=== PATIENT | male | born 1940 | race African-American/Black ===

== ENCOUNTER 2016-03-22 15:57 | Inpatient (IN) | payer MEDICARE, OTHER ==
[2016-03-22 17:16] LABS: ALANINE AMINOTRANSFERASE 25 U/L (21-72); ALBUMIN 1.3 g/dL (3.5-5.0); ALKALINE PHOSPHATASE 41 U/L (38-126); ANION GAP 6 (5-19); ASPARTATE AMINO TRANSFERASE 11 U/L (17-59); BILIRUBIN,TOTAL 0.5 mg/dL (0.2-1.3); BLOOD UREA NITROGEN 17 mg/dL (7-20); CARBON DIOXIDE 18 mmol/L (22-30); CHLORIDE 121 mmol/L (98-107); CREATINE KINASE 30 U/L (55-170); CREATININE RESULT 0.61 mg/dL (0.52-1.25); GLUCOSE 60 mg/dL (75-110); TOTAL PROTEIN 3.1 g/dL (6.3-8.2)
[2016-03-22 17:24] LABS: CALCIUM 4.6 mg/dL (8.4-10.2); POTASSIUM 2.4 mmol/L (3.6-5.0)
[2016-03-22 17:26] LABS: ABSOLUTE EOSINOPHILS # (AUTO) 0.1 10^3/uL (0.0-0.6); ABSOLUTE LYMPHOCYTES (AUTO) 0.5 10^3/uL (0.5-4.7); ABSOLUTE MONOCYTES (AUTO) 0.5 10^3/uL (0.1-1.4); ABSOLUTE NEUT (AUTO) 4.1 10^3/uL (1.7-8.2); BASOPHILS % (AUTO) 0.6 % (0-2); EOSINOPHILS % (AUTO) 1.8 % (0-6); HEMATOCRIT 27.8 % (37.9-51.0); HEMOGLOBIN 9.3 g/dL (13.5-17.0); HGB HCT DIFFERENCE 0.1; MEAN CORPUSCULAR HEMOGLOBIN 34.2 pg (27.0-33.4); MEAN CORPUSCULAR HGB CONC 33.3 g/dL (32.0-36.0); MEAN CORPUSCULAR VOLUME 103 fl (80-97); MONOCYTES % (AUTO) 9.6 % (3-13); RED BLOOD COUNT 2.71 10^6/uL (4.35-5.55); RED CELL DISTRIBUTION WIDTH 12.6 % (11.5-14.0); WHITE BLOOD COUNT 5.3 10^3/uL (4.0-10.5)
[2016-03-22 17:27] LABS: CREATINE KINASE MB 0.42 ng/mL (<4.55); TROPONIN I 0.016 ng/mL
[2016-03-22] MEDS ORDERED: CALCIUM GLUCONATE 1000 MG/10 ML INJ IV ONE ×2 (17:43)
[2016-03-22] MEDS ORDERED: NORMAL SALINE 1000 ML 1,000 ML IV PRN (17:44)
[2016-03-22] MEDS ORDERED: CEFOTAXIME INJ 1 GM VIAL IV ONE (17:49)
[2016-03-22] MEDS ORDERED: VANCOMYCIN HCL INJ 1000 MG VIAL IV ONE (17:50)
--- NOTE | 2016-03-22 17:52 | ER Document Report ---
ED General - General Chief Complaint: Decreased LOC Stated Complaint: ALTERED MENTAL STATUS Time seen by provider: 17:50 Mode of Arrival: Medic Information source: Relative Notes: This is a 75-year-old man with Parkinson's disease, recent subdural hematoma secondary to fall in the setting of anticoagulation (no longer on anticoagulation, does have a filter). In by EMS because of decreased responsiveness over the past 2-3 days. Patient's states that the patient has not eaten or had anything to drink in 24 hours. The patient was released by [facility] last Monday to [facility]. Patient's notes that the patient is fallen several times since. TRAVEL OUTSIDE OF THE [place] IN LAST 30 DAYS: No - HPI Onset: Other Onset/Duration: Gradual - 2 days prior to arrival Quality of pain: No pain Severity: None Pain Level: Denies Associated symptoms: denies: Chills, Nonproductive cough, Productive cough, Fever, Shortness of breath Exacerbated by: Denies Relieved by: Denies Similar symptoms previously: Yes Recently seen / treated by doctor: Yes - Related Data Allergies/Adverse Reactions: hydrochlorothiazide [Hydrochlorothiazide] Allergy (Intermediate, Verified 16:31) Rash Past Medical History - General Information source: Relative - Social History Smoking Status: Never Smoker Cigarette use (# per day): No Chew tobacco use (# tins/day): No Frequency of alcohol use: None Drug Abuse: None Lives with: Family Family History: None, COPD, Hyperlipidemia, Hypertension - Past Medical History Cardiac Medical History: Reports: Hx Hypertension, Hx Pulmonary Embolism Denies: Hx Coronary Artery Disease, Hx Heart Attack, Hx Hypercholesterolemia Pulmonary Medical History: Reports: Hx Asthma - Has occasional SOB/wheezing( uses Albuterol inhaler, Hx COPD Denies: Hx Bronchitis Neurological Medical History: Denies: Hx Seizures Endocrine Medical History: Denies: Hx Diabetes Mellitus Type 1, Hx Diabetes Mellitus Type 2, Hx Hyperthyroidism, Hx Hypothyroidism GI Medical History: Denies: Hx Cirrhosis, Hx Gastroesophageal Reflux Disease, Hx Hepatitis Musculoskeltal Medical History: Denies Hx Arthritis Skin Medical History: Denies Hx Eczema, Denies Hx Psoriasis Psychiatric Medical History: Reports: Hx Dementia Denies: Hx Depression Infectious Medical History: Denies: Hx Hepatitis Past Surgical History: Reports: Hx Herniorrhaphy. Denies: Hx Pacemaker - Immunizations Hx Diphtheria, Pertussis, Tetanus Vaccination: Yes - Tetanus only Hx Pneumococcal Vaccination: 12/22/08 Review of Systems - Review of Systems Constitutional: See HPI. denies: Chills, Fever EENT: No symptoms reported Cardiovascular: No symptoms reported Respiratory: No symptoms reported Gastrointestinal: No symptoms reported Genitourinary: No symptoms reported Male Genitourinary: No symptoms reported Musculoskeletal: No symptoms reported Skin: No symptoms reported Hematologic/Lymphatic: No symptoms reported Neurological/Psychological: See HPI Physical Exam - Vital signs Vitals: Pulse Resp BP Pulse Ox 64 16 90/52 L 97 03/22/16 16:16 03/22/16 16:16 03/22/16 16:16 03/22/16 16:16 Notes: Physical exam: GENERAL: 75-year-old man, nonverbal, responds to painful stimuli. He will intermittently cooperate with squeezing of the hand when asked. HEAD: Atraumatic, normocephalic. EYES: Pupils equal round and reactive to light, extraocular movements intact, sclera anicteric, conjunctiva are normal. ENT: Dry mucous membranes. NECK: Range of motion limited by arthritis, this is probably his baseline. LUNGS: Breath sounds clear to auscultation bilaterally and equal. No wheezes rales or rhonchi. HEART: Regular rate and rhythm without murmurs, rubs or gallops. ABDOMEN: Soft, nontender, normoactive bowel sounds. No guarding, no rebound. No masses appreciated. EXTREMITIES: Limited range of motion of the lower extremities: He appears to be fighting me during the exam. NEUROLOGICAL: Nonverbal, does respond to pain and intermittently to verbal stimuli. SKIN: Warm, Dry, normal turgor, no rashes or lesions noted. Course - Vital Signs Vital signs: Temp Pulse Resp BP Pulse Ox 97.9 F 64 18 88/63 L 100 03/22/16 16:34 03/22/16 16:16 03/22/16 19:00 03/22/16 17:01 03/22/16 18:00 - Laboratory Result Diagrams: 03/22/16 16:43 03/22/16 17:50 Laboratory results interpreted by me: 03/22/16 03/22/16 03/22/16 16:43 16:43 17:50 RBC 2.71 L Hgb 9.3 L Hct 27.8 L MCV 103 H MCH 34.2 H Plt Count 133 L Lymphocytes % 10.0 L Potassium 2.4 L* Chloride 121 H Carbon Dioxide 18 L BUN 28 H Glucose 60 L Calcium 4.6 L* 8.3 L AST 11 L Creatine Kinase 30 L Total Protein 3.1 L 5.7 L Albumin 1.3 L 2.9 L Urine Protein Urine Ketones Urine Blood Urine Urobilinogen 03/22/16 17:50 RBC Hgb Hct MCV MCH Plt Count Lymphocytes % Potassium Chloride Carbon Dioxide BUN Glucose Calcium AST Creatine Kinase Total Protein Albumin Urine Protein 30 H Urine Ketones TRACE H Urine Blood LARGE H Urine Urobilinogen 4.0 H - Diagnostic Test Radiology reviewed: Image reviewed, Reports reviewed - CT of the head shows a resolving subdural. The chest x-ray shows a left lobar pneumonia. Critical Care Note - Critical Care Note Total time excluding time spent on procedures (mins): 60 Discharge - Discharge Clinical Impression: pneumonia, hypocalcemia, hypokalemia, encephalopathy, dehydration Condition: Serious Disposition: ADMITTED INPATIENT Admitting Provider: Hospitalist - Dr. Patel Unit Admitted: [facility]
[2016-03-22 18:27] LABS: ALANINE AMINOTRANSFERASE 27 U/L (21-72); ALBUMIN 2.9 g/dL (3.5-5.0); ALKALINE PHOSPHATASE 82 U/L (38-126); ANION GAP 9 (5-19); ASPARTATE AMINO TRANSFERASE 20 U/L (17-59); BILIRUBIN,TOTAL 1.1 mg/dL (0.2-1.3); BLOOD UREA NITROGEN 28 mg/dL (7-20); CALCIUM 8.3 mg/dL (8.4-10.2); CARBON DIOXIDE 26 mmol/L (22-30); CHLORIDE 105 mmol/L (98-107); CREATININE RESULT 1.03 mg/dL (0.52-1.25); GLUCOSE 89 mg/dL (75-110); MAGNESIUM 2.1 mg/dL (1.6-2.3); SODIUM 140.4 mmol/L (137-145); TOTAL PROTEIN 5.7 g/dL (6.3-8.2)
[2016-03-22] MEDS ORDERED: NORMAL SALINE 1000 ML 2,000 ML IV ONE (18:27)
[2016-03-22] MEDS ORDERED: DEXTROSE 50%-WATER 25 GM/50 ML DISP.SYRIN IV ONE (18:29)
[2016-03-22] MEDS ORDERED: POTASSI CL 20 MEQ/D5NS 1L 1,000 ML IV PRN (18:29)
[2016-03-22 18:38] LABS: POTASSIUM 4.2 mmol/L (3.6-5.0)
[2016-03-22] MEDS ORDERED: VANCOMYCIN HCL 0 MG in DEXTROSE 5%-WATER 250 ML IV NR (18:45)
--- NOTE | 2016-03-22 18:51 | PDOC H&P ---
[id number] responsiveness at [facility] Patient complains of: dehydration hypokalemia History of Present Illness: ESTHER VILLALTA is a 75 year old male with Parkinson's disease, recent subdural hematoma secondary to fall in the setting of anticoagulation (no longer on anticoagulation, does have a filter). In by EMS because of decreased responsiveness over the past 2-3 days. Patient' s states that the patient has not eaten or had anything to drink in 24 hours. The patient was released by [facility] last Monday to [facility]. Patient's notes that the patient is fallen several times since. Past Medical History Cardiac Medical History: Reports: Hypertension, Pulmonary Embolism Denies: Coronary Artery Disease, Myocardial Infarction, Hyperlipidema Pulmonary Medical History: Reports: Asthma - Has occasional SOB/wheezing(uses Albuterol inhaler, Chronic Obstructive Pulmonary Disease (COPD) Denies: Bronchitis Neurological Medical History: Denies: Seizures Endocrine Medical History: Denies: Diabetes Mellitus Type 1, Diabetes Mellitus Type 2, Hyperthyroidism, Hypothyroidism GI Medical History: Denies: Cirrhosis, Gastroesophageal Reflux Disease, Hepatitis Musculoskeltal Medical History: Denies: Arthritis Skin Medical History: Denies: Eczema, Psoriasis Psychiatric Medical History: Reports: Dementia Denies: Depression Hematology: Denies: Anemia Past Surgical History Past Surgical History: Reports: Herniorrhaphy Denies: Pacemaker Social History Frequency of Alcohol Use: None Hx Recreational Drug Use: No Hx Prescription Drug Abuse: No - Advance Directive Resuscitation Status: Do Not Resuscitate Surrogate healthcare decision maker:: Gaurang Family History Family History: COPD, Hyperlipidemia, Hypertension Parental Family History Reviewed: Yes - Hypertension Children Family History Reviewed: No Sibling(s) Family History Reviewed.: No Medication/Allergy Home Medications: Albuterol Sulfate [Proair HFA] 1 puff IH Q4HP PRN 03/22/16 Aspirin [Aspirin EC] 81 mg PO DAILY 03/22/16 Atenolol [Tenormin 50 mg Tablet] 50 mg PO Q12 03/22/16 Carbidopa/Levodopa [Sinemet 25-100 mg Tablet] 1.5 tab PO QID 03/22/16 Fluticasone/Salmeterol [Advair 100-50 Diskus 14 Dose/Diskus] 1 puff IH Q12 03/22 Furosemide [Lasix 20 mg Tablet] 20 mg PO DAILY 03/22/16 Lisinopril [Zestril] 5 mg PO QAM 03/22/16 Quetiapine Fumarate [Seroquel 25 mg Tablet] 25 mg PO QHS 03/22/16 Rivastigmine [Exelon 9.5 mg/24 Hr Transdermal Patch] 1 each TD DAILY 03/22/16 Selegiline HCl [Eldepryl] 5 mg PO Q12 03/22/16 Acidoph/L.bulg/Bif.b/S.thermop [Bacid Caplet] 1 each PO BID #20 tablet 03/24/16 Amoxicillin/Potassium Clav [Augmentin Es-600 Suspension] 600 mg PO BID #100 ml 03/24/16 Allergies/Adverse Reactions: hydrochlorothiazide [Hydrochlorothiazide] Allergy (Intermediate, Verified 16:31) Rash Review of Systems ROS unobtainable: Due to mental status - patient is not able to answer questions Physical Exam Vital Signs: Temp Pulse Resp BP Pulse Ox 97.9 F 64 16 88/63 L 99 03/22/16 16:34 03/22/16 16:16 03/22/16 17:01 03/22/16 17:01 03/22/16 17:01 General appearance: PRESENT: cooperative, mild distress, thin, other - Looks acute and chronically ill emaciated with uncontrollable tremors of upper extremities Head exam: PRESENT: atraumatic, normocephalic Eye exam: PRESENT: conjunctiva pink, EOMI, PERRLA. ABSENT: scleral icterus Mouth exam: PRESENT: dry mucosa Neck exam: ABSENT: carotid bruit, JVD, lymphadenopathy, thyromegaly Respiratory exam: PRESENT: clear to auscultation kalen. ABSENT: rales, rhonchi, wheezes Cardiovascular exam: PRESENT: RRR. ABSENT: diastolic murmur, rubs, systolic murmur GI/Abdominal exam: PRESENT: normal bowel sounds, soft. ABSENT: distended, guarding, mass, organolmegaly, rebound, tenderness Rectal exam: PRESENT: deferred Extremities exam: PRESENT: full ROM. ABSENT: calf tenderness, clubbing, pedal edema Neurological exam: PRESENT: awake, other - Uncontrollable tremors Cogwheel rigidity Skin exam: PRESENT: dry, intact, warm. ABSENT: cyanosis, rash Results Laboratory Results: 03/22/16 16:43 01/03/17 17:50 03/22/16 03/22/16 03/22/16 16:43 16:43 17:50 WBC 5.3 RBC 2.71 L Hgb 9.3 L Hct 27.8 L MCV 103 H MCH 34.2 H MCHC 33.3 RDW 12.6 Plt Count 133 L Seg Neutrophils % 78.0 Lymphocytes % 10.0 L Monocytes % 9.6 Eosinophils % 1.8 Basophils % 0.6 Absolute Neutrophils 4.1 Absolute Lymphocytes 0.5 Absolute Monocytes 0.5 Absolute Eosinophils 0.1 Absolute Basophils 0.0 Sodium 145.0 140.4 Potassium 2.4 L* 4.2 D Chloride 121 H 105 Carbon Dioxide 18 L 26 Anion Gap 6 9 BUN 17 28 H Creatinine 0.61 1.03 Est GFR ( Amer) > 60 > 60 Est GFR (Non-Af Amer) > 60 > 60 Glucose 60 L 89 Calcium 4.6 L* 8.3 L Magnesium 2.1 Total Bilirubin 0.5 1.1 AST 11 L 20 ALT 25 27 Alkaline Phosphatase 41 82 Total Protein 3.1 L 5.7 L Albumin 1.3 L 2.9 L 03/22/16 03/22/16 16:43 16:43 Creatine Kinase 30 L CK-MB (CK-2) 0.42 Troponin I 0.016 Impressions: Chest X-Ray 03/22/16 16:31 IMPRESSION: Small/early left lower lobar pneumonia/atelectasis. 7-12 week surveillance radiographs recommended. Head CT 03/22/16 16:33 IMPRESSION: INTERVAL RESOLUTION RIGHT SUBDURAL HEMATOMA WITHOUT NEW ACUTE INTRACRANIAL PROCESS IDENTIFIED. MILD MAXILLARY SINUS DISEASE. Assessment & Plan - Diagnosis (1) Dehydration Is this a current diagnosis for this admission?: YesPlan: Patient has had trouble swallowing the last couple days Appears extremely dehydrated We will give him fluid boluses replenish his fluids (2) Hypotension Qualifiers: Hypotension type: other hypotension type Qualified Code(s): I95.89 - Other hypotension Is this a current diagnosis for this admission?: YesPlan: Hypotension likely secondary to severe dehydration Sepsis may play a role as patient does have pneumonia treat the patient was fluid boluses reassess his fluid status We will treat the patient for hospital-acquired pneumonia likely to be aspiration pneumonia as well And cover infection with vancomycin and Zosyn (3) Pneumonia Qualifiers: Pneumonia type: due to unspecified organism Laterality: left Lung location: lower lobe of lung Qualified Code(s): J18.1 - Lobar pneumonia, unspecified organism Is this a current diagnosis for this admission?: YesPlan: Hospital-acquired pneumonia Zosyn and vancomycin (4) Dysphagia Is this a current diagnosis for this admission?: YesPlan: Nothing by mouth tonight; speech eval in a.m. (5) Presence of IVC filter Is this a current diagnosis for this admission?: YesPlan: Patient was chronically anticoagulated since prior to the subdural hematoma IVC filter was placed at [facility] last week (7) Subdural hematoma caused by concussion Qualifiers: Encounter type: subsequent encounter Loss of consciousness presence/ duration: with LOC of unspecified duration Qualified Code(s): S06.5X9D - Traumatic subdural hemorrhage with loss of consciousness of unspecified duration , subsequent encounter Is this a current diagnosis for this admission?: YesPlan: Patient was transfered to [facility] on 03/10 (8) DNR (do not resuscitate) Is this a current diagnosis for this admission?: Yes - Time Time Spent: 50 to 70 Minutes - Inpatient Certification Based on my medical assessment, after consideration of the patient's comorbidities, presenting symptoms, or acuity I expect that the services needed warrant INPATIENT care.: Yes I certify that my determination is in accordance with my understanding of Medicare's requirements for reasonable and necessary INPATIENT services [42 CFR 412.3e].: Yes Medical Necessity: Need For IV Fluids, Need for IV Antibiotics Post Hospital Care: D/C Hydropulper Operator Documentation, D/C or Transfer Summary - Plan Summary Plan Summary: admit to [facility] Inpatient
[2016-03-22 19:38] LABS: APPEARANCE,URINE CLOUDY; BILIRUBIN,URINE NEGATIVE (NEGATIVE); GLUCOSE, URINE NEGATIVE (NEGATIVE); KETONES,URINE TRACE mg/dL (NEGATIVE); LEUKOCYTE ESTERASE,URINE NEGATIVE (NEGATIVE); NITRITE,URINE NEGATIVE (NEGATIVE); PROTEIN,URINE 30 mg/dL (NEGATIVE); URINE SPECIFIC GRAVITY 1.031
[2016-03-22] MEDS: POTASSI CL 20 MEQ/50 ML RIDER 50 ML IV SCH ×2 (21:20→23:40)
[2016-03-22] MEDS ORDERED: CEFEPIME 1 GM/D5W RTU 50 ML IV SCH (22:00)
[2016-03-22] MEDS: PIPERACILLIN SODIUM/TAZOBACTAM 3.375 GM in NORMAL SALINE 100 ML IV SCH (23:41)
[2016-03-23] MEDS: VANCOMYCIN HCL 750 MG in DEXTROSE 5%-WATER 250 ML IV SCH ×3 (00:55→22:08)
[2016-03-23] MEDS: PIPERACILLIN SODIUM/TAZOBACTAM 3.375 GM in NORMAL SALINE 100 ML IV SCH ×3 (05:06→23:50)
[2016-03-23 05:50] LABS: ALANINE AMINOTRANSFERASE 30 U/L (21-72); ALBUMIN 3.3 g/dL (3.5-5.0); ALKALINE PHOSPHATASE 77 U/L (38-126); ANION GAP 12 (5-19); ASPARTATE AMINO TRANSFERASE 24 U/L (17-59); BILIRUBIN,TOTAL 1.3 mg/dL (0.2-1.3); BLOOD UREA NITROGEN 24 mg/dL (7-20); CALCIUM 8.4 mg/dL (8.4-10.2); CARBON DIOXIDE 21 mmol/L (22-30); CHLORIDE 109 mmol/L (98-107); CREATININE RESULT 1.05 mg/dL (0.52-1.25); GLUCOSE 77 mg/dL (75-110); POTASSIUM 4.7 mmol/L (3.6-5.0); SODIUM 142.2 mmol/L (137-145); TOTAL PROTEIN 5.7 g/dL (6.3-8.2)
[2016-03-23 06:56] LABS: ABSOLUTE EOSINOPHILS # (AUTO) 0.2 10^3/uL (0.0-0.6); ABSOLUTE LYMPHOCYTES (AUTO) 0.8 10^3/uL (0.5-4.7); ABSOLUTE MONOCYTES (AUTO) 0.7 10^3/uL (0.1-1.4); ABSOLUTE NEUT (AUTO) 5.1 10^3/uL (1.7-8.2); BASOPHILS % (AUTO) 0.7 % (0-2); EOSINOPHILS % (AUTO) 2.9 % (0-6); HGB HCT DIFFERENCE 0.5; MEAN CORPUSCULAR HEMOGLOBIN 34.5 pg (27.0-33.4); MEAN CORPUSCULAR HGB CONC 33.9 g/dL (32.0-36.0); MEAN CORPUSCULAR VOLUME 102 fl (80-97); MONOCYTES % (AUTO) 9.8 % (3-13); RED BLOOD COUNT 3.63 10^6/uL (4.35-5.55); RED CELL DISTRIBUTION WIDTH 12.7 % (11.5-14.0); SEGMENTED NEUTROPHILS % (AUTO) 74.6 % (42-78); WHITE BLOOD COUNT 6.9 10^3/uL (4.0-10.5)
[2016-03-23 06:57] LABS: HEMOGLOBIN 12.5 g/dL (13.5-17.0)
--- NOTE | 2016-03-23 13:16 | PDOC PROGRESS REPORT ---
Subjective Progress Note for:: 03/23/16 Subjective:: Patient did pass a swallow evaluation was a modified diet He is still not verbal but this doesn't establish a better eye contact No fever no chills no respiratory distress On the monitor he is in atrial fibrillation flutter at a rate of 60-70/mn His blood pressure is is soft with a systolic of 100-110 Physical Exam Vital Signs: Temp Pulse Resp BP Pulse Ox 97.4 F 65 16 116/68 100 03/23/16 11:37 03/23/16 11:37 03/23/16 11:37 03/23/16 11:37 03/23/16 11:37 Intake & Output 03/22/16 03/23/16 03/24/16 00:59 00:59 00:59 Intake Total 2770 Output Total 650 Balance 2120 Weight 65.4 kg 67.6 kg General appearance: PRESENT: no acute distress, thin Head exam: PRESENT: atraumatic, normocephalic Eye exam: PRESENT: conjunctiva pink, EOMI, PERRLA. ABSENT: scleral icterus Neck exam: ABSENT: carotid bruit, JVD, lymphadenopathy, thyromegaly Respiratory exam: PRESENT: clear to auscultation kalen. ABSENT: rales, rhonchi, wheezes Cardiovascular exam: PRESENT: irregular rhythm. ABSENT: rubs, systolic murmur Pulses: PRESENT: normal dorsalis pedis pul GI/Abdominal exam: PRESENT: normal bowel sounds, soft. ABSENT: distended, guarding, mass, organolmegaly, rebound, tenderness Extremities exam: PRESENT: full ROM. ABSENT: calf tenderness, clubbing, pedal edema Neurological exam: PRESENT: awake, other - Uncontrollable tremors upper extremities and cogwheel rigidity Results Laboratory Results: 03/23/16 06:38 03/23/16 04:55 03/23/16 03/23/16 03/23/16 04:55 04:55 04:55 WBC Cancelled RBC Cancelled Hgb Cancelled Hct Cancelled MCV Cancelled MCH Cancelled MCHC Cancelled RDW Cancelled Plt Count Cancelled Seg Neutrophils % Cancelled Lymphocytes % Cancelled Monocytes % Cancelled Eosinophils % Cancelled Basophils % Cancelled Absolute Neutrophils Cancelled Absolute Lymphocytes Cancelled Absolute Monocytes Cancelled Absolute Eosinophils Cancelled Absolute Basophils Cancelled Sodium 142.2 Potassium 4.7 Chloride 109 H Carbon Dioxide 21 L Anion Gap 12 BUN 24 H Creatinine 1.05 Est GFR ( Amer) > 60 Est GFR (Non-Af Amer) > 60 Glucose 77 Calcium 8.4 Magnesium 2.0 Total Bilirubin 1.3 AST 24 ALT 30 Alkaline Phosphatase 77 Total Protein 5.7 L Albumin 3.3 L TSH 3.15 03/23/16 06:38 WBC 6.9 RBC 3.63 L Hgb 12.5 L D Hct 37.0 L MCV 102 H MCH 34.5 H MCHC 33.9 RDW 12.7 Plt Count 188 Seg Neutrophils % 74.6 Lymphocytes % 12.0 L Monocytes % 9.8 Eosinophils % 2.9 Basophils % 0.7 Absolute Neutrophils 5.1 Absolute Lymphocytes 0.8 Absolute Monocytes 0.7 Absolute Eosinophils 0.2 Absolute Basophils 0.0 Sodium Potassium Chloride Carbon Dioxide Anion Gap BUN Creatinine Est GFR ( Amer) Est GFR (Non-Af Amer) Glucose Calcium Magnesium Total Bilirubin AST ALT Alkaline Phosphatase Total Protein Albumin TSH 03/22/16 21:14 Troponin I 0.021 Impressions: Chest X-Ray 03/22/16 16:31 IMPRESSION: Small/early left lower lobar pneumonia/atelectasis. 7-12 week surveillance radiographs recommended. Head CT 03/22/16 16:33 IMPRESSION: INTERVAL RESOLUTION RIGHT SUBDURAL HEMATOMA WITHOUT NEW ACUTE INTRACRANIAL PROCESS IDENTIFIED. MILD MAXILLARY SINUS DISEASE. Assessment & Plan - Diagnosis (1) Dehydration Is this a current diagnosis for this admission?: Yes (2) Hypotension Qualifiers: Hypotension type: other hypotension type Qualified Code(s): I95.89 - Other hypotension Is this a current diagnosis for this admission?: Yes (3) Pneumonia Qualifiers: Pneumonia type: due to unspecified organism Laterality: left Lung location: lower lobe of lung Qualified Code(s): J18.1 - Lobar pneumonia, unspecified organism Is this a current diagnosis for this admission?: Yes (4) Dysphagia Is this a current diagnosis for this admission?: YesPlan: Patient did pass a swallow evaluation (5) Presence of IVC filter Is this a current diagnosis for this admission?: Yes (6) Hypokalemia Is this a current diagnosis for this admission?: YesPlan: Has resolved (7) Subdural hematoma caused by concussion Qualifiers: Encounter type: subsequent encounter Loss of consciousness presence/ duration: with LOC of unspecified duration Qualified Code(s): S06.5X9D - Traumatic subdural hemorrhage with loss of consciousness of unspecified duration , subsequent encounter Is this a current diagnosis for this admission?: YesPlan: CT scan shows resolution of the subdural (8) DNR (do not resuscitate) Is this a current diagnosis for this admission?: Yes (9) Chronic combined systolic and diastolic CHF (congestive heart failure) Is this a current diagnosis for this admission?: YesPlan: Last echocardiogram showed an EF of 45% and diastolic dysfunction Patient is currently on atenolol and Lasix and lisinopril We will reevaluate his pain his medications at discharge; atenolol may be decreased as well as Lasix as patient's intake is poor - Time Time Spent with patient: Patient's condition is certainly quite stable at this time He is clinically improved No evidence of sepsis We will continue Zosyn and discontinue vancomycin Patient will be discharged in a.m. waves a course of Augmentin by mouth Patient will be able to follow up with [facility] on Monday for a neurology appointment Time Spent with patient: 25-34 minutes
--- NOTE | 2016-03-23 16:01 | EKG REPORT ---
SEVERITY:- ABNORMAL ECG - SINUS RHYTHM NONSPECIFIC INTRAVENTRICULAR CONDUCTION DELAY : Confirmed by: Saqib Gipson 23-Mar-2016 16:01:30
--- NOTE | 2016-03-23 16:01 | EKG REPORT ---
SEVERITY:- ABNORMAL ECG - PROBABLE SR WITH BASELINE ARTIFACTS, CANNOT R/O A FLUTTER ABNRM R PROG, CONSIDER ASMI OR LEAD PLACEMENT : Confirmed by: Saqib Gipson 23-Mar-2016 16:00:57
[2016-03-23] MEDS: CARBIDOPA/LEVODOPA 25-100 MG TABLET PO SCH ×2 (17:30→22:12)
[2016-03-23] MEDS ORDERED: QUETIAPINE FUMARATE 25 MG TABLET PO SCH (22:00)
[2016-03-23] MEDS ORDERED: SELEGILINE HCL 5 MG PO SCH (22:00)
[2016-03-23] MEDS: SELEGILINE HCL 5 MG TABLET PO SCH (22:14)
[2016-03-24] MEDS: PIPERACILLIN SODIUM/TAZOBACTAM 3.375 GM in NORMAL SALINE 100 ML IV SCH ×2 (05:21→12:59)
--- NOTE | 2016-03-24 09:06 | PDOC DISCHARGE SUMMARY ---
General - Admit/Disc Date/PCP Admission Date/Primary Care Provider: 03/22/16 18:34 Discharge Date: 03/24/16 - Discharge Diagnosis (1) Dehydration Is this a current diagnosis for this admission?: YesSummary: Patient had extremely poor intake 24-48 hours prior to admission He responded to IV fluids Renal function was adequate (2) Hypotension Is this a current diagnosis for this admission?: YesSummary: On admission was secondary to dehydration Blood pressure normalized Lasix was held (3) Pneumonia Is this a current diagnosis for this admission?: YesSummary: Likely aspiration pneumonia with a small infiltrate in left lower lung field Patient was treated with Zosyn and vancomycin He will be discharged on Augmentin by mouth Patient did not have hypoxemia and or any respiratory distress (4) Dysphagia Is this a current diagnosis for this admission?: YesSummary: Patient was evaluated by speech Aspiration precautions should be followed with meals Mechanical soft diet with cut meats was recommended (5) Presence of IVC filter Is this a current diagnosis for this admission?: Yes (6) Hypokalemia Is this a current diagnosis for this admission?: YesSummary: resolved with K replacement (7) Subdural hematoma caused by concussion Is this a current diagnosis for this admission?: YesSummary: a repeat CAT scan showed resolution of the subdural hematoma (8) DNR (do not resuscitate) Is this a current diagnosis for this admission?: Yes (9) Chronic combined systolic and diastolic CHF (congestive heart failure) Is this a current diagnosis for this admission?: YesSummary: Well compensated during this admission - Additional Information Resuscitation Status: Do Not Resuscitate Home Medications: Albuterol Sulfate [Proair HFA] 1 puff IH Q4HP PRN 03/22/16 Aspirin [Aspirin EC] 81 mg PO DAILY 03/22/16 Atenolol [Tenormin 50 mg Tablet] 50 mg PO Q12 03/22/16 Carbidopa/Levodopa [Sinemet 25-100 mg Tablet] 1.5 tab PO QID 03/22/16 Fluticasone/Salmeterol [Advair 100-50 Diskus 14 Dose/Diskus] 1 puff IH Q12 03/22 Furosemide [Lasix 20 mg Tablet] 20 mg PO DAILY 03/22/16 Lisinopril [Zestril] 5 mg PO QAM 03/22/16 Quetiapine Fumarate [Seroquel 25 mg Tablet] 25 mg PO QHS 03/22/16 Rivastigmine [Exelon 9.5 mg/24 Hr Transdermal Patch] 1 each TD DAILY 03/22/16 Selegiline HCl [Eldepryl] 5 mg PO Q12 03/22/16 Acidoph/L.bulg/Bif.b/S.thermop [Bacid Caplet] 1 each PO BID #20 tablet 03/24/16 Amoxicillin/Potassium Clav [Augmentin Es-600 Suspension] 600 mg PO BID #100 ml 03/24/16 History of Present Illness Patient complains of: Altered mentation History of Present Illness: ESTHER VILLALTA is a 75 year old male with Parkinson's disease, recent subdural hematoma secondary to fall in the setting of anticoagulation (no longer on anticoagulation, does have a filter). In by EMS because of decreased responsiveness over the past 2-3 days. Patient' s states that the patient has not eaten or had anything to drink in 24 hours. The patient was released by [facility] last Monday to [facility]. Patient's notes that the patient is fallen several times since. Hospital Course Hospital Course: See above Physical Exam Vital Signs: Temp Pulse Resp BP Pulse Ox 97.5 F 59 L 19 105/61 100 03/24/16 07:29 03/24/16 07:29 03/24/16 07:29 03/24/16 07:29 03/24/16 07:29 Intake & Output 03/23/16 03/24/16 03/25/16 00:59 00:59 00:59 Intake Total 3710 600 Output Total 1350 400 Balance 2360 200 Weight 65.4 kg 67.6 kg 73.7 kg General appearance: PRESENT: no acute distress, thin Head exam: PRESENT: atraumatic, normocephalic Eye exam: PRESENT: conjunctiva pink, EOMI, PERRLA. ABSENT: scleral icterus Neck exam: ABSENT: carotid bruit, JVD, lymphadenopathy, thyromegaly Respiratory exam: PRESENT: clear to auscultation kalen. ABSENT: rales, rhonchi, wheezes Cardiovascular exam: PRESENT: RRR. ABSENT: diastolic murmur, rubs, systolic murmur Pulses: PRESENT: normal dorsalis pedis pul GI/Abdominal exam: PRESENT: normal bowel sounds, soft. ABSENT: distended, guarding, mass, organolmegaly, rebound, tenderness Neurological exam: PRESENT: other - Tremors of upper extremity and cogwheel rigidity Results Laboratory Results: 03/23/16 06:38 03/23/16 04:55 03/22/16 21:14 Troponin I 0.021 Labs- Entire Visit 03/22/16 03/22/16 03/22/16 16:43 16:43 16:43 WBC 5.3 RBC 2.71 L Hgb 9.3 L Hct 27.8 L MCV 103 H MCH 34.2 H MCHC 33.3 RDW 12.6 Plt Count 133 L Seg Neutrophils % 78.0 Lymphocytes % 10.0 L Monocytes % 9.6 Eosinophils % 1.8 Basophils % 0.6 Absolute Neutrophils 4.1 Absolute Lymphocytes 0.5 Absolute Monocytes 0.5 Absolute Eosinophils 0.1 Absolute Basophils 0.0 Platelet Estimate Sodium 145.0 Potassium 2.4 L* Chloride 121 H Carbon Dioxide 18 L Anion Gap 6 BUN 17 Creatinine 0.61 Est GFR ( Amer) > 60 Est GFR (Non-Af Amer) > 60 Glucose 60 L POC Glucose Calcium 4.6 L* Magnesium Total Bilirubin 0.5 Direct Bilirubin 0.0 AST 11 L ALT 25 Alkaline Phosphatase 41 Creatine Kinase 30 L CK-MB (CK-2) 0.42 Troponin I 0.016 Total Protein 3.1 L Albumin 1.3 L TSH Urine Color Urine Appearance Urine pH Ur Specific [place] Urine Protein Urine Glucose (UA) Urine Ketones Urine Blood Urine Nitrite Urine Bilirubin Urine Urobilinogen Ur Leukocyte Esterase Urine WBC (Auto) Urine RBC (Auto) Urine Mucus (Auto) Urine Ascorbic Acid Slides for Path Review 03/22/16 03/22/16 03/22/16 17:50 17:50 21:01 WBC RBC Hgb Hct MCV MCH MCHC RDW Plt Count Seg Neutrophils % Lymphocytes % Monocytes % Eosinophils % Basophils % Absolute Neutrophils Absolute Lymphocytes Absolute Monocytes Absolute Eosinophils Absolute Basophils Platelet Estimate Sodium 140.4 Potassium 4.2 D Chloride 105 Carbon Dioxide 26 Anion Gap 9 BUN 28 H Creatinine 1.03 Est GFR ( Amer) > 60 Est GFR (Non-Af Amer) > 60 Glucose 89 POC Glucose 69 L Calcium 8.3 L Magnesium 2.1 Total Bilirubin 1.1 Direct Bilirubin 0.0 AST 20 ALT 27 Alkaline Phosphatase 82 Creatine Kinase CK-MB (CK-2) Troponin I Total Protein 5.7 L Albumin 2.9 L TSH Urine Color DARK YELLOW Urine Appearance CLOUDY Urine pH 5.0 Ur Specific [place] 1.031 Urine Protein 30 H Urine Glucose (UA) NEGATIVE Urine Ketones TRACE H Urine Blood LARGE H Urine Nitrite NEGATIVE Urine Bilirubin NEGATIVE Urine Urobilinogen 4.0 H Ur Leukocyte Esterase NEGATIVE Urine WBC (Auto) 10 Urine RBC (Auto) 105 Urine Mucus (Auto) MANY Urine Ascorbic Acid NEGATIVE Slides for Path Review 03/22/16 03/22/16 03/23/16 21:14 23:28 04:55 WBC Cancelled RBC Cancelled Hgb Cancelled Hct Cancelled MCV Cancelled MCH Cancelled MCHC Cancelled RDW Cancelled Plt Count Cancelled Seg Neutrophils % Cancelled Lymphocytes % Cancelled Monocytes % Cancelled Eosinophils % Cancelled Basophils % Cancelled Absolute Neutrophils Cancelled Absolute Lymphocytes Cancelled Absolute Monocytes Cancelled Absolute Eosinophils Cancelled Absolute Basophils Cancelled Platelet Estimate Cancelled Sodium Potassium Chloride Carbon Dioxide Anion Gap BUN Creatinine Est GFR ( Amer) Est GFR (Non-Af Amer) Glucose POC Glucose 94 Calcium Magnesium Total Bilirubin Direct Bilirubin AST ALT Alkaline Phosphatase Creatine Kinase CK-MB (CK-2) Troponin I 0.021 Total Protein Albumin TSH Urine Color Urine Appearance Urine pH Ur Specific [place] Urine Protein Urine Glucose (UA) Urine Ketones Urine Blood Urine Nitrite Urine Bilirubin Urine Urobilinogen Ur Leukocyte Esterase Urine WBC (Auto) Urine RBC (Auto) Urine Mucus (Auto) Urine Ascorbic Acid Slides for Path Review Cancelled 03/23/16 03/23/16 03/23/16 04:55 04:55 06:38 WBC 6.9 RBC 3.63 L Hgb 12.5 L D Hct 37.0 L MCV 102 H MCH 34.5 H MCHC 33.9 RDW 12.7 Plt Count 188 Seg Neutrophils % 74.6 Lymphocytes % 12.0 L Monocytes % 9.8 Eosinophils % 2.9 Basophils % 0.7 Absolute Neutrophils 5.1 Absolute Lymphocytes 0.8 Absolute Monocytes 0.7 Absolute Eosinophils 0.2 Absolute Basophils 0.0 Platelet Estimate Sodium 142.2 Potassium 4.7 Chloride 109 H Carbon Dioxide 21 L Anion Gap 12 BUN 24 H Creatinine 1.05 Est GFR ( Amer) > 60 Est GFR (Non-Af Amer) > 60 Glucose 77 POC Glucose Calcium 8.4 Magnesium 2.0 Total Bilirubin 1.3 Direct Bilirubin 0.0 AST 24 ALT 30 Alkaline Phosphatase 77 Creatine Kinase CK-MB (CK-2) Troponin I Total Protein 5.7 L Albumin 3.3 L TSH 3.15 Urine Color Urine Appearance Urine pH Ur Specific [place] Urine Protein Urine Glucose (UA) Urine Ketones Urine Blood Urine Nitrite Urine Bilirubin Urine Urobilinogen Ur Leukocyte Esterase Urine WBC (Auto) Urine RBC (Auto) Urine Mucus (Auto) Urine Ascorbic Acid Slides for Path Review Impressions: Chest X-Ray 03/22/16 16:31 IMPRESSION: Small/early left lower lobar pneumonia/atelectasis. 7-12 week surveillance radiographs recommended. Head CT 03/22/16 16:33 IMPRESSION: INTERVAL RESOLUTION RIGHT SUBDURAL HEMATOMA WITHOUT NEW ACUTE INTRACRANIAL PROCESS IDENTIFIED. MILD MAXILLARY SINUS DISEASE. Plan Discharge Plan: Patient will return to [facility] Follow-up in a.m. with neurology at [facility] as planned patient was discharged with Kumar catheter in place Time Spent: Greater than 30 Minutes
[2016-03-24] MEDS ORDERED: RIVASTIGMINE 9.5 MG/24 HR PATCH.TD24 TD SCH (10:00)
[2016-03-24] MEDS ORDERED: ASPIRIN 81 MG TABLET, ENT COATED PO SCH (10:00)
[2016-03-24 10:32] LABS: CREATININE RESULT 1.03 mg/dL (0.52-1.25)
[2016-03-24] MEDS: VANCOMYCIN HCL 750 MG in DEXTROSE 5%-WATER 250 ML IV SCH (10:50)
[2016-03-24] MEDS: CARBIDOPA/LEVODOPA 25-100 MG TABLET PO SCH (10:50)
[2016-03-24] MEDS: SELEGILINE HCL 5 MG TABLET PO SCH (10:51)
[2016-03-24 16:42] VITALS: BP 123/61
[2016-03-24] MEDS ORDERED: VANCOMYCIN HCL 750 MG in DEXTROSE 5%-WATER 250 ML IV SCH (18:00)
== END 2016-03-24 17:45 | DRG 193 ==
LOC: ER 15:57 → UNDOADMIN 18:08 → EH 18:08 → 3W 22:05 → UNDODISIN 03-24 13:10
PROVIDERS: ADMIT Emergency Medicine; ATTEND Emergency Medicine
DX: J18.1 Lobar pneumonia, unspecified organism (principal); G93.40 Encephalopathy, unspecified; I50.42 Chronic combined systolic (congestive) and diastolic (congestive) heart failure; E87.6 Hypokalemia; E86.0 Dehydration; I95.89 Other hypotension; I11.0 Hypertensive heart disease with heart failure; R13.10 Dysphagia, unspecified; J32.0 Chronic maxillary sinusitis; E83.51 Hypocalcemia; G20 Parkinson's disease; R29.6 Repeated falls; Z91.81 History of falling; Z66 Do not resuscitate; Z79.82 Long term (current) use of aspirin; Z86.711 Personal history of pulmonary embolism; Z83.49 Family history of other endocrine, nutritional and metabolic diseases; Z82.5 Family history of asthma and other chronic lower respiratory diseases; Z82.49 Family history of ischemic heart disease and other diseases of the circulatory system
CPT/HCPCS: 36415; 70450; 71010; 80053; 80202; 81001; 82550; 82553; 82565; 82962; 83735; 84443; 84484; 85025; 87040; 93005; 93010; 99291; G8996-GN; G8997-GN; G8998-GN; J0610; J2543; J3370; J3490; J7030; J7060

== ENCOUNTER 2016-06-09 20:35 | Emergency (ER) | payer MEDICARE, OTHER ==
--- NOTE | 2016-06-09 21:23 | ER Document Report ---
ED Fall - General Time seen by provider: 21:15 Mode of Arrival: Medic Information source: Transfer Record, Emergency Med Personnel TRAVEL OUTSIDE OF THE [place] IN LAST 30 DAYS: No - HPI Occurred: Just prior to arrival - see HPI note Location of injury/pain: Head <LOUISA MESA - Last Filed: 06/09/16 21:38> <NATA TAVARES - Last Filed: 06/09/16 22:45> - General Chief Complaint: Fall Stated Complaint: FALL,HEAD INJURY Notes: Patient is a 75 year old male presenting to the emergency department for a fall. Patient fell from a seated position. Patient resides at [facility]. Patient was transferred via EMS. Patient has a contusion to the left front of his head. Patient has a history of Parkinson's disease and dementia. Patient is not on blood thinners. Patient is allergic to hydrochlorothiazide. (LOUISA MESA) - Related data Allergies/Adverse Reactions: hydrochlorothiazide [Hydrochlorothiazide] Allergy (Intermediate, Verified 16:31) Rash Past Medical History - General Information source: Transfer Record, Emergency Med Personnel - Social History Smoking Status: Unknown if Ever Smoked Family History: Reviewed & Not Pertinent, COPD, Hyperlipidemia, Hypertension - Past Medical History Cardiac Medical History: Reports: Hx Hypertension, Hx Pulmonary Embolism Pulmonary Medical History: Reports: Hx Asthma - Has occasional SOB/wheezing( uses Albuterol inhaler, Hx COPD Psychiatric Medical History: Reports: Hx Dementia Past Surgical History: Reports: Hx Herniorrhaphy - Immunizations Hx Diphtheria, Pertussis, Tetanus Vaccination: Yes Hx Pneumococcal Vaccination: 12/22/08 <LOUISA MESA - Last Filed: 06/09/16 21:38> Review of Systems - Review of Systems Constitutional: No symptoms reported EENT: No symptoms reported Cardiovascular: No symptoms reported Respiratory: No symptoms reported Gastrointestinal: No symptoms reported Genitourinary: No symptoms reported Male Genitourinary: No symptoms reported Musculoskeletal: No symptoms reported Skin: See HPI Hematologic/Lymphatic: No symptoms reported Neurological/Psychological: See HPI -: Yes All other systems reviewed and negative <LOUISA MESA - Last Filed: 06/09/16 21:38> Physical Exam - Vital signs Interpretation: Normal <LOUISA MESA - Last Filed: 06/09/16 21:38> <NATA TAVARES Last Filed: 06/09/16 22:45> - Vital signs Vitals: Temp Pulse Resp BP Pulse Ox 98 F 72 16 105/68 98 06/09/16 20:35 06/09/16 20:35 06/09/16 20:35 06/09/16 20:35 06/09/16 20:35 - Notes Notes: GENERAL: Well-appearing, well-nourished and in no acute distress, oriented x1 HEAD: Left frontal contusion, normocephalic EYES: Pupils equal round and reactive to light, extraocular movements intact, sclera anicteric, no conjunctival injection or discharge ENT: Nares patent, oropharynx clear without exudates, moist mucous membranes NECK: Normal range of motion, non-tender, supple without lymphadenopathy LUNGS: Breath sounds clear to auscultation bilaterally and equal. No wheezes rales or rhonchi HEART: Regular rate and rhythm without murmurs ABDOMEN: Soft, non-tender, normoactive bowel sounds. No guarding, no rebound. No masses appreciated. No [place] sign BACK: No CVA tenderness. EXTREMITIES: Normal range of motion, no calf tenderness, 2+ pitting edema to the lower extremities bilaterally NEUROLOGICAL: Cranial nerves grossly intact. Normal speech, Normal sensory and motor exams. No gross cerebellar abnormalities PSYCH: Normal mood, flat affect SKIN: Warm, Dry, normal turgor, no lesions noted (LOUISA MESA) Course <LOUISA MESA - Last Filed: 06/09/16 21:38> - Diagnostic Test Radiology reviewed: Reports reviewed - Neg Head CT <NATA TAVARES - Last Filed: 06/09/16 22:45> - Re-evaluation Re-evalutation: 06/09/16 22:44 On reevaluation patient has no change. He appears to be at his current baseline and will be discharged. (NATA TAVARES) - Vital Signs Vital signs: Temp Pulse Resp BP Pulse Ox 98 F 72 16 105/68 98 06/09/16 20:35 06/09/16 20:35 06/09/16 20:35 06/09/16 20:35 06/09/16 20:35 Discharge <LOUISA MESA - Last Filed: 06/09/16 21:38> <NATA TAVARES - Last Filed: 06/09/16 22:45> - Discharge Clinical Impression: Contusion of head Condition: Good Disposition: HOME, SELF-CARE Additional Instructions: Ice for 20 minutes at a time to area of pain and swelling. Return for any problem or concern. Scribe Attestation: 06/09/16 22:43 I personally performed the services described in the documentation, reviewed and edited the documentation which was dictated to the scribe in my presence, and it accurately records my words and actions. (NATA TAVARES) Scribe Documentation - Scribe Written by Lor:: Louisa Mesa 06/09/16 21:45 acting as scribe for :: Benjamin <LOUISA MESA - Last Filed: 06/09/16 21:38>
[2016-06-10 03:59] VITALS: BP 149/88
== END 2016-06-10 | disposition home or self-care (01) ==
LOC: ER 20:35
DX: S00.93XA Contusion of unspecified part of head, initial encounter (principal); W05.0XXA Fall from non-moving wheelchair, initial encounter; Y92.129 Unspecified place in nursing home as the place of occurrence of the external cause; G20 Parkinson's disease; F02.80 Dementia in other diseases classified elsewhere, unspecified severity, without behavioral disturbance, psychotic disturbance, mood disturbance, and anxiety; R60.0 Localized edema; I10 Essential (primary) hypertension; J44.9 Chronic obstructive pulmonary disease, unspecified; Z86.711 Personal history of pulmonary embolism; Z88.8 Allergy status to other drugs, medicaments and biological substances
CPT/HCPCS: 70450; 99284

== ENCOUNTER 2016-06-23 17:37 | Emergency (ER) | payer MEDICARE, OTHER ==
[2016-06-23] MEDS ORDERED: IPRATROPIUM/ALBUTEROL 0.5-2.5 MG/3 ML AMPUL NEB ONE (17:54)
--- NOTE | 2016-06-23 18:06 | ER Document Report ---
ED General - General Chief Complaint: Tremor Stated Complaint: POSSIBLE SEIZURE Time seen by provider: 18:06 Mode of Arrival: Stretcher Information source: Patient, Relative - Patient's TRAVEL OUTSIDE OF THE [place] IN LAST 30 DAYS: No - HPI Patient complains to provider of: tremors, possible seizure Onset: Just prior to arrival Onset/Duration: Sudden Quality of pain: No pain Associated symptoms: None Exacerbated by: Denies Relieved by: Denies Similar symptoms previously: Yes Notes: Patient is a 75-year-old male who was sent from local jail for tremors with possible seizure activity, according to jail staff, patient was observed walking down the hallway with his walker with bilateral limb shaking, patient is able to recall the entire episode, he denies falling, he denies loss of consciousness, he denies any pain, patient has a history of Parkinson's disease, at time of my evaluation patient denies having any concerns, his at bedside states he is at his baseline - Related Data Allergies/Adverse Reactions: hydrochlorothiazide [Hydrochlorothiazide] Allergy (Intermediate, Verified 16:31) Rash Past Medical History - General Information source: Patient, Relative - Social History Smoking Status: Unknown if Ever Smoked Family History: Reviewed & Not Pertinent, COPD, Hyperlipidemia, Hypertension - Past Medical History Cardiac Medical History: Reports: Hx Hypertension, Hx Pulmonary Embolism Denies: Hx Coronary Artery Disease, Hx Heart Attack, Hx Hypercholesterolemia Pulmonary Medical History: Reports: Hx Asthma - Has occasional SOB/wheezing( uses Albuterol inhaler, Hx COPD Denies: Hx Bronchitis Neurological Medical History: Denies: Hx Seizures Endocrine Medical History: Denies: Hx Diabetes Mellitus Type 1, Hx Diabetes Mellitus Type 2, Hx Hyperthyroidism, Hx Hypothyroidism GI Medical History: Denies: Hx Cirrhosis, Hx Gastroesophageal Reflux Disease, Hx Hepatitis Musculoskeltal Medical History: Denies Hx Arthritis Skin Medical History: Denies Hx Eczema, Denies Hx Psoriasis Psychiatric Medical History: Reports: Hx Dementia Denies: Hx Depression Infectious Medical History: Denies: Hx Hepatitis Past Surgical History: Reports: Hx Herniorrhaphy. Denies: Hx Pacemaker - Immunizations Hx Diphtheria, Pertussis, Tetanus Vaccination: Yes Hx Pneumococcal Vaccination: 12/22/08 Review of Systems - Review of Systems Constitutional: No symptoms reported EENT: No symptoms reported Cardiovascular: No symptoms reported Respiratory: No symptoms reported Gastrointestinal: No symptoms reported Genitourinary: No symptoms reported Male Genitourinary: No symptoms reported Musculoskeletal: No symptoms reported Skin: No symptoms reported Hematologic/Lymphatic: No symptoms reported Neurological/Psychological: See HPI -: Yes All other systems reviewed and negative Physical Exam - Vital signs Vitals: Temp Pulse Resp BP Pulse Ox 97.2 F 71 16 127/54 H 95 06/23/16 17:45 06/23/16 17:45 06/23/16 17:45 06/23/16 17:45 06/23/16 17:45 Interpretation: Normal - General General appearance: Appears well, Alert In distress: None - HEENT Head: Normocephalic, Atraumatic Eyes: Normal Conjunctiva: Normal Extraocular movements intact: Yes Eyelashes: Normal Pupils: PERRL Pharynx: Normal - Respiratory Respiratory status: No respiratory distress Chest status: Nontender Breath sounds: Normal Chest palpation: Normal - Cardiovascular Rhythm: Regular Heart sounds: Normal auscultation Murmur: No - Abdominal Inspection: Normal Distension: No distension Bowel sounds: Normal Tenderness: Nontender Organomegaly: No organomegaly - Back Back: Normal - Extremities General upper extremity: Normal color General lower extremity: Normal color - Neurological Additional motor exam normals: Involuntary movements - Tremors - Psychological Associated symptoms: Normal affect, Normal mood - Skin Skin Temperature: Warm Skin Moisture: Dry Skin Color: Normal Course - Re-evaluation Re-evalutation: 06/24/16 00:09 Patient noted to have hyperkalemia, provided and repeat potassium is now down to 5.1, EKG is without acute findings, patient continues to have tremors that are consistent with his Parkinson's disease, likely the cause of his symptoms that were reported by the jail, patient was discharged with instructions for follow-up and advised to return if symptoms worsen, patient acknowledges understanding and agreement with this plan - Vital Signs Vital signs: Temp Pulse Resp BP Pulse Ox 97.2 F 71 16 127/54 H 95 06/23/16 17:45 06/23/16 17:45 06/23/16 17:45 06/23/16 17:45 06/23/16 17:45 - Laboratory Result Diagrams: 06/23/16 18:20 06/23/16 23:25 Laboratory results interpreted by me: 06/23/16 06/23/16 06/23/16 18:20 19:30 19:30 RBC 3.36 L Hgb 11.7 L Hct 35.3 L MCV 105 H MCH 34.9 H Plt Count 125 L Potassium 6.0 H* BUN 45 H Creatinine 1.66 H Est GFR ( Amer) 49 L Est GFR (Non-Af Amer) 41 L Glucose Urine Ketones TRACE H Urine Ascorbic Acid 40 H 06/23/16 23:25 RBC Hgb Hct MCV MCH Plt Count Potassium 5.1 H BUN 38 H Creatinine 1.37 H Est GFR ( Amer) Est GFR (Non-Af Amer) 51 L Glucose 132 H Urine Ketones Urine Ascorbic Acid - Diagnostic Test Radiology reviewed: Image reviewed, Reports reviewed - EKG Interpretation by Me EKG shows normal: Sinus rhythm Rate: Normal Rhythm: NSR When compared to previous EKG there are: No significant change Additional EKG results interpreted by me: 06/24/16 00:10 Patient with tremors during EKG so there is artifact Discharge - Discharge Clinical Impression: Hypernatremia, Continuous tremor, Parkinson's disease Condition: Stable Disposition: HOME, SELF-CARE Instructions: Parkinson's Disease ([facility]) Additional Instructions: Follow up with your primary care provider in one to 2 days. Return to the emergency room immediately if symptoms worsen or any additional concerns.
[2016-06-23 18:41] LABS: ABSOLUTE EOSINOPHILS # (AUTO) 0.2 10^3/uL (0.0-0.6); ABSOLUTE LYMPHOCYTES (AUTO) 0.8 10^3/uL (0.5-4.7); ABSOLUTE MONOCYTES (AUTO) 0.5 10^3/uL (0.1-1.4); BASOPHILS % (AUTO) 0.9 % (0-2); HEMATOCRIT 35.3 % (37.9-51.0); HEMOGLOBIN 11.7 g/dL (13.5-17.0); HGB HCT DIFFERENCE -0.2; LYMPHOCYTES % (AUTO) 16.3 % (13-45); MEAN CORPUSCULAR HEMOGLOBIN 34.9 pg (27.0-33.4); MEAN CORPUSCULAR HGB CONC 33.2 g/dL (32.0-36.0); MEAN CORPUSCULAR VOLUME 105 fl (80-97); MONOCYTES % (AUTO) 11.8 % (3-13); RED BLOOD COUNT 3.36 10^6/uL (4.35-5.55); RED CELL DISTRIBUTION WIDTH 13.7 % (11.5-14.0); WHITE BLOOD COUNT 4.6 10^3/uL (4.0-10.5)
[2016-06-23 19:50] LABS: APPEARANCE,URINE CLEAR; BILIRUBIN,URINE NEGATIVE (NEGATIVE); GLUCOSE, URINE NEGATIVE (NEGATIVE); KETONES,URINE TRACE mg/dL (NEGATIVE); LEUKOCYTE ESTERASE,URINE NEGATIVE (NEGATIVE); NITRITE,URINE NEGATIVE (NEGATIVE); PROTEIN,URINE NEGATIVE (NEGATIVE); URINE SPECIFIC GRAVITY 1.013; UROBILINOGEN,URINE NEGATIVE mg/dL (<2.0)
[2016-06-23 20:04] LABS: ALANINE AMINOTRANSFERASE 26 U/L (21-72); ALBUMIN 3.9 g/dL (3.5-5.0); ALKALINE PHOSPHATASE 110 U/L (38-126); ANION GAP 11 (5-19); ASPARTATE AMINO TRANSFERASE 24 U/L (17-59); BILIRUBIN,DIRECT 0.3 mg/dL (0.0-0.4); BILIRUBIN,TOTAL 0.5 mg/dL (0.2-1.3); BLOOD UREA NITROGEN 45 mg/dL (7-20); CALCIUM 8.8 mg/dL (8.4-10.2); CARBON DIOXIDE 27 mmol/L (22-30); CHLORIDE 104 mmol/L (98-107); CREATININE RESULT 1.66 mg/dL (0.52-1.25); GLUCOSE 97 mg/dL (75-110); MAGNESIUM 2.3 mg/dL (1.6-2.3); SODIUM 142.3 mmol/L (137-145); URINE BARBITURATES SCREEN NEGATIVE; URINE METHADONE SCREEN NEGATIVE; URINE OPIATES LOW NEGATIVE; URINE PHENCYCLIDINE SCREEN NEGATIVE
[2016-06-23 20:10] LABS: ALCOHOL < 10 mg/dL (NONE DETECTED)
[2016-06-23] MEDS ORDERED: NORMAL SALINE 1000 ML 1,000 ML IV PRN (20:14)
[2016-06-23] MEDS ORDERED: CALCIUM GLUCONATE 1000 MG/10 ML INJ IV ONE (21:06)
[2016-06-23] MEDS ORDERED: INSULIN REG, HUMAN 100 UNIT/ML 3 ML VIAL (PYX) IV ONE (21:06)
[2016-06-23] MEDS ORDERED: DEXTROSE 50%-WATER 25 GM/50 ML DISP.SYRIN IV ONE (21:06)
[2016-06-23 23:52] LABS: ANION GAP 11 (5-19); BLOOD UREA NITROGEN 38 mg/dL (7-20); CALCIUM 8.6 mg/dL (8.4-10.2); CARBON DIOXIDE 28 mmol/L (22-30); CHLORIDE 103 mmol/L (98-107); CREATININE RESULT 1.37 mg/dL (0.52-1.25); GLUCOSE 132 mg/dL (75-110); POTASSIUM 5.1 mmol/L (3.6-5.0); SODIUM 141.5 mmol/L (137-145)
[2016-06-24 01:16] VITALS: BP 147/86
--- NOTE | 2016-06-24 22:30 | EKG REPORT ---
SEVERITY:- ABNORMAL ECG - ATRIAL FLUTTER, A-RATE 272 ABNORMAL T, CONSIDER ISCHEMIA, LATERAL LEADS : Confirmed by: Candy Cisneros MD 24-Jun-2016 22:29:29
== END 2016-06-24 01:05 | disposition home or self-care (01) ==
LOC: ER 17:37
DX: G20 Parkinson's disease (principal); E87.1 Hypo-osmolality and hyponatremia; E87.5 Hyperkalemia; I10 Essential (primary) hypertension; J44.9 Chronic obstructive pulmonary disease, unspecified; Z88.8 Allergy status to other drugs, medicaments and biological substances; Z86.711 Personal history of pulmonary embolism
CPT/HCPCS: 93005; 99285; 96374; 96375; 36415; 80307 ×2; 83735; 85025; 80048; 80053; 81001; 71010; 93010; J0610; J3490; A9270 ×2; J1815; J7620

== ENCOUNTER 2016-08-08 20:52 | Emergency (ER) | payer MEDICARE, OTHER ==
--- NOTE | 2016-08-08 21:13 | ER Document Report ---
ED Fall - General Stated Complaint: FALL,NECK PAIN Time Seen by Provider: 08/08/16 20:57 Mode of Arrival: Medic Information source: Emergency Med Personnel TRAVEL OUTSIDE OF THE [place] IN LAST 30 DAYS: No - HPI Patient complains to provider of: Unwitnessed fall Occurred: Just prior to arrival Where: Custodial Location of injury/pain: Head, Wrist Prehospital interventions: C-collar Notes: Patient is a 76-year-old male who was sent from local [place] [facility] after unwitnessed fall patient is nonverbal so details of fall cannot be ascertained, he does have a hematoma on his right forehead and erythema and swelling to his right wrist, apparently patient was acting out aggressively and was given Ativan and Haldol around 7:30 PM, then his regular medications around 8 PM which include Depakote atenolol and Sinemet, and sometime between 8 PM and 9 PM he was found lying on the floor in a supine fashion by nursing staff at the [place] [facility] but EMS reports that his pulse ox was 86% on arrival on room air - Related data Allergies/Adverse Reactions: hydrochlorothiazide [Hydrochlorothiazide] Allergy (Intermediate, Verified 16:31) Rash Past Medical History - General Information source: Emergency Med Personnel - Social History Smoking Status: Unknown if Ever Smoked Family History: Reviewed & Not Pertinent, COPD, Hyperlipidemia, Hypertension - Past Medical History Cardiac Medical History: Reports: Hx Hypertension, Hx Pulmonary Embolism Denies: Hx Coronary Artery Disease, Hx Heart Attack, Hx Hypercholesterolemia Pulmonary Medical History: Reports: Hx Asthma - Has occasional SOB/wheezing( uses Albuterol inhaler, Hx COPD Denies: Hx Bronchitis Neurological Medical History: Denies: Hx Seizures Endocrine Medical History: Denies: Hx Diabetes Mellitus Type 1, Hx Diabetes Mellitus Type 2, Hx Hyperthyroidism, Hx Hypothyroidism GI Medical History: Denies: Hx Cirrhosis, Hx Gastroesophageal Reflux Disease, Hx Hepatitis Musculoskeltal Medical History: Denies Hx Arthritis Skin Medical History: Denies Hx Eczema, Denies Hx Psoriasis Psychiatric Medical History: Reports: Hx Dementia Denies: Hx Depression Infectious Medical History: Denies: Hx Hepatitis Past Surgical History: Reports: Hx Herniorrhaphy. Denies: Hx Pacemaker - Immunizations Hx Diphtheria, Pertussis, Tetanus Vaccination: Yes Hx Pneumococcal Vaccination: 12/22/08 Review of Systems - Review of Systems Constitutional: No symptoms reported EENT: No symptoms reported Cardiovascular: No symptoms reported Respiratory: No symptoms reported Gastrointestinal: No symptoms reported Genitourinary: No symptoms reported Male Genitourinary: No symptoms reported Musculoskeletal: See HPI Skin: See HPI Hematologic/Lymphatic: No symptoms reported Neurological/Psychological: No symptoms reported -: Yes All other systems reviewed and negative Physical Exam - Vital signs Vitals: Resp 15 08/08/16 21:08 Interpretation: Normal - General General appearance: Alert In distress: None - HEENT Head: Normocephalic, Other - 4x5 cm hematoma to right forehead Eyes: Normal Pupils: PERRL Ears: Normal External canal: Normal Tympanic membrane: Normal Sinus: Normal Nasal: Normal Mouth/Lips: Normal Mucous membranes: Normal Pharynx: Normal Neck: Normal - Respiratory Respiratory status: No respiratory distress Chest status: Nontender Breath sounds: Normal Chest palpation: Normal - Cardiovascular Rhythm: Regular Heart sounds: Normal auscultation Murmur: No - Abdominal Inspection: Normal Distension: No distension Bowel sounds: Normal Tenderness: Nontender Organomegaly: No organomegaly - Back Back: Normal, Nontender - Extremities General upper extremity: Normal ROM General lower extremity: Normal inspection, Normal color, Normal ROM Wrist: Other - Right wrist with mild swelling and erythema - Neurological Dolores Coma Scale Eye Opening: To Pain [place] Coma Scale Verbal: None Dolores Coma Scale Motor: Withdraws to Pain Dolores Coma Scale Total: 7 - Skin Skin Temperature: Warm Skin Moisture: Dry Skin Color: Normal Course - Re-evaluation Re-evalutation: 08/09/16 02:58 Imaging findings unremarkable, laboratory findings unremarkable, patient will be discharged back to the [place] [facility] with instructions for follow-up - Vital Signs Vital signs: Temp Pulse Resp BP Pulse Ox 63 20 130/82 H 99 08/08/16 21:18 08/09/16 00:01 08/09/16 00:01 08/08/16 23:49 - Laboratory Result Diagrams: 08/08/16 23:05 08/08/16 23:05 Laboratory results interpreted by me: 08/08/16 08/08/16 23:05 23:05 RBC 3.63 L Hgb 12.6 L Hct 37.5 L MCV 103 H MCH 34.6 H Plt Count 105 L Potassium 5.1 H BUN 52 H Creatinine 1.97 H Est GFR ( Amer) 40 L Est GFR (Non-Af Amer) 33 L Glucose 73 L ALT 18 L Valproic Acid 36.0 L - Diagnostic Test Radiology reviewed: Image reviewed, Reports reviewed Discharge - Discharge Clinical Impression: Head injury Qualifiers: Encounter type: initial encounter Qualified Code(s): S09.90XA - Unspecified injury of head, initial encounter Wrist sprain Qualifiers: Encounter type: initial encounter Laterality: right Qualified Code(s): S63.501A - Unspecified sprain of right wrist, initial encounter Condition: Stable Disposition: HOME, SELF-CARE Instructions: Head Injury Precautions ([facility]), Wrist Sprain ([facility]) Additional Instructions: Follow up with your primary care provider in one to 2 days. Return to the emergency room immediately if symptoms worsen or any additional concerns.
--- NOTE | 2016-08-08 21:51 | RADIOLOGY REPORT (SQ) ---
EXAM DESCRIPTION: CT HEAD WITHOUT COMPLETED DATE/TIME: 08/08/2016 9:34 pm REASON FOR STUDY: injury COMPARISON: 06/09/2016 TECHNIQUE: Axial images acquired through the brain without intravenous contrast. Images reviewed wi th bone, brain and subdural windows. Images stored on PACS. All CT scanners at this facility use dose modulation, iterative reconstruction, and/or weight based d osing when appropriate to reduce radiation dose to as low as reasonably achievable (ALARA). [facility]: Dose Right [facility]: CareDose [facility]: Dose Right [facility]: Teradose 4D [facility]: [employer] RADIATION DOSE: 121.66 mGy. LIMITATIONS: None. FINDINGS: VENTRICLES: Normal size and contour. CEREBRUM: No masses. No hemorrhage. No midline shift. Normal jo/white matter differentiation. N o evidence for acute infarction. Age-appropriate white matter. CEREBELLUM: No masses. No hemorrhage. No alteration of density. No evidence for acute infarction. EXTRAAXIAL SPACES: No fluid collections. No masses. ORBITS AND GLOBE: No intra- or extraconal masses. Normal contour of globe without masses. CALVARIUM: No fracture. PARANASAL SINUSES: No fluid or mucosal thickening. SOFT TISSUES: Mild right frontal soft tissue swelling. No mass or hematoma. OTHER: No other significant finding. IMPRESSION: No acute intracranial findings. TECHNICAL DOCUMENTATION: JOB ID: [id number] Quality ID # [id number]: Final reports with documentation of one or more dose reduction techniques (e.g., Au tomated exposure control, adjustment of the mA and/or kV according to patient size, use of iterative reconstruction technique) 2010 [employer]- All Rights Reserved
--- NOTE | 2016-08-08 22:02 | RADIOLOGY REPORT (SQ) ---
EXAM DESCRIPTION: CT CERVICAL SPINE WITHOUT COMPLETED DATE/TIME: 08/08/2016 9:34 pm REASON FOR STUDY: injury COMPARISON: None. TECHNIQUE: Axial images acquired through the cervical spine without intravenous contrast. Images re viewed with lung, soft tissue and bone windows. Reconstructed coronal and sagittal MPR images review ed. Images stored on PACS. All CT scanners at this facility use dose modulation, iterative reconstruction, and/or weight based d osing when appropriate to reduce radiation dose to as low as reasonably achievable (ALARA). [facility]: Dose Right [facility]: CareDose [facility]: Dose Right [facility]: Teradose 4D [facility]: [employer] RADIATION DOSE: 15.97 mGy. LIMITATIONS: None. FINDINGS: ALIGNMENT: Anatomic. MINERALIZATION: Normal. VERTEBRAL BODIES: No fractures or dislocation. DISCS: Multilevel disc space narrowing with osteophytes. FACETS, LATERAL MASSES, POSTERIOR ELEMENTS: Facet arthropathy. No fractures. No dislocation. No ac [place] findings. HARDWARE: None in the spine. VISUALIZED RIBS: No fractures. LUNG APICES AND SOFT TISSUES: No significant or acute findings. OTHER: No other significant finding. IMPRESSION: CHRONIC DEGENERATIVE CHANGES. NO ACUTE FINDINGS. TECHNICAL DOCUMENTATION: JOB ID: [id number] Quality ID # [id number]: Final reports with documentation of one or more dose reduction techniques (e.g., Au tomated exposure control, adjustment of the mA and/or kV according to patient size, use of iterative reconstruction technique) 2010 [employer]- All Rights Reserved
--- NOTE | 2016-08-08 22:39 | RADIOLOGY REPORT (SQ) ---
EXAM DESCRIPTION: CHEST SINGLE VIEW COMPLETED DATE/TIME: 08/08/2016 10:20 pm REASON FOR STUDY: fall COMPARISON: 06/23/2016 EXAM PARAMETERS: NUMBER OF VIEWS: One view. TECHNIQUE: Single frontal radiographic view of the chest acquired. RADIATION DOSE: NA LIMITATIONS: None. FINDINGS: LUNGS AND PLEURA: No acute opacities, masses or pneumothorax. No pleural effusion. MEDIASTINUM AND HILAR STRUCTURES: Stable. HEART AND VASCULAR STRUCTURES: Heart normal in size. Normal vasculature. BONES: No acute findings. HARDWARE: None in the chest. OTHER: No other significant finding. IMPRESSION: NO ACUTE RADIOGRAPHIC FINDING IN THE CHEST. TECHNICAL DOCUMENTATION: JOB ID: [id number]
--- NOTE | 2016-08-08 22:44 | RADIOLOGY REPORT (SQ) ---
EXAM DESCRIPTION: WRIST RIGHT 3 VIEWS COMPLETED DATE/TIME: 08/08/2016 10:20 pm REASON FOR STUDY: fall COMPARISON: None. NUMBER OF VIEWS: Three views. TECHNIQUE: AP, lateral, and oblique radiographic images acquired of the right wrist. LIMITATIONS: None. FINDINGS: MINERALIZATION: Normal. BONES: No acute fracture or dislocation. No worrisome bone lesions. Normal alignment. SOFT TISSUES: No soft tissue swelling. No foreign body. OTHER: No other significant finding. IMPRESSION: NO RADIOGRAPHIC EVIDENCE OF ACUTE INJURY. TECHNICAL DOCUMENTATION: JOB ID: [id number] 1805 [employer]- All Rights Reserved
[2016-08-08 23:18] LABS: ABSOLUTE EOSINOPHILS # (AUTO) 0.2 10^3/uL (0.0-0.6); ABSOLUTE MONOCYTES (AUTO) 0.5 10^3/uL (0.1-1.4); ABSOLUTE NEUT (AUTO) 3.6 10^3/uL (1.7-8.2); BASOPHILS % (AUTO) 0.5 % (0-2); EOSINOPHILS % (AUTO) 3.2 % (0-6); HEMATOCRIT 37.5 % (37.9-51.0); HEMOGLOBIN 12.6 g/dL (13.5-17.0); HGB HCT DIFFERENCE 0.3; LYMPHOCYTES % (AUTO) 18.7 % (13-45); MEAN CORPUSCULAR HEMOGLOBIN 34.6 pg (27.0-33.4); MEAN CORPUSCULAR HGB CONC 33.6 g/dL (32.0-36.0); MEAN CORPUSCULAR VOLUME 103 fl (80-97); MONOCYTES % (AUTO) 8.7 % (3-13); RED BLOOD COUNT 3.63 10^6/uL (4.35-5.55); RED CELL DISTRIBUTION WIDTH 12.7 % (11.5-14.0); SEGMENTED NEUTROPHILS % (AUTO) 68.9 % (42-78); WHITE BLOOD COUNT 5.3 10^3/uL (4.0-10.5)
[2016-08-08 23:36] LABS: ALANINE AMINOTRANSFERASE 18 U/L (21-72); ALBUMIN 3.8 g/dL (3.5-5.0); ALKALINE PHOSPHATASE 92 U/L (38-126); ANION GAP 12 (5-19); ASPARTATE AMINO TRANSFERASE 30 U/L (17-59); BILIRUBIN,DIRECT 0.3 mg/dL (0.0-0.4); BILIRUBIN,TOTAL 0.5 mg/dL (0.2-1.3); BLOOD UREA NITROGEN 52 mg/dL (7-20); CARBON DIOXIDE 28 mmol/L (22-30); CHLORIDE 101 mmol/L (98-107); CREATININE RESULT 1.97 mg/dL (0.52-1.25); GLUCOSE 73 mg/dL (75-110); POTASSIUM 5.1 mmol/L (3.6-5.0); TOTAL PROTEIN 6.8 g/dL (6.3-8.2)
[2016-08-09 06:11] VITALS: BP 129/79
== END 2016-08-09 06:09 | disposition home or self-care (01) ==
LOC: ER 20:52
DX: S09.90XA Unspecified injury of head, initial encounter (principal); S63.501A Unspecified sprain of right wrist, initial encounter; M54.2 Cervicalgia; W19.XXXA Unspecified fall, initial encounter; Y92.129 Unspecified place in nursing home as the place of occurrence of the external cause; I10 Essential (primary) hypertension; Z86.711 Personal history of pulmonary embolism; J45.909 Unspecified asthma, uncomplicated
CPT/HCPCS: 36415; 70450; 71010; 72125; 80053; 80164; 85025; 99285

== ENCOUNTER 2016-08-17 11:53 | Inpatient (IN) | payer MEDICARE, OTHER ==
--- NOTE | 2016-08-17 12:12 | ER Document Report ---
ED General - General Mode of Arrival: Medic Information source: Relative - spouse, Emergency Med Personnel, Outside Facility Records TRAVEL OUTSIDE OF THE [place] IN LAST 30 DAYS: No - HPI Onset: Other - Refer to HPI notes Associated symptoms: Other - difficulty swallowing Similar symptoms previously: No Recently seen / treated by doctor: Yes <LOUISA MESA - Last Filed: 08/17/16 12:53> <SHIRA FELTON - Last Filed: 08/17/16 16:00> - General Stated Complaint: STROKE LIKE SYMPTOMS Time Seen by Provider: 08/17/16 12:03 Notes: Patient is a 76 year old male presenting to the emergency department from a halfway for difficulty swallowing. Patient was recently seen on 08/08/16 for a fall and hematoma to the right side of his forehead. Patient was sent to the ED for some difficulty swallowing that was different from his baseline. 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 Patient's spouse is present with patient and states that the patient is at his baseline. Patient is not interactive and is mostly nonverbal. Patient's also states the patient's Depakote dose was increased 2 weeks ago. Patient is allergic to hydrochlorothiazide. (LOUISA MESA) - Related Data Allergies/Adverse Reactions: hydrochlorothiazide [Hydrochlorothiazide] Allergy (Intermediate, Verified 13:38) Rash Past Medical History - General Information source: Relative - spouse, [facility] Records, Outside Facility Records - Social History Smoking Status: Unknown if Ever Smoked Family History: COPD, Hyperlipidemia, Hypertension Patient has suicidal ideation: No Patient has homicidal ideation: No - Medical History Medical History: Other - Parkinson's disease - Past Medical History Cardiac Medical History: Reports: Hx Hypertension, Hx Pulmonary Embolism Pulmonary Medical History: Reports: Hx Asthma - Has occasional SOB/wheezing( uses Albuterol inhaler, Hx COPD Renal/ Medical History: Reports: Hx Renal Insufficiency Psychiatric Medical History: Reports: Hx Dementia, Other Infectious Medical History: Reports: Hx C-Diff, Hx MRSA Past Surgical History: Reports: Hx Herniorrhaphy - Immunizations Hx Diphtheria, Pertussis, Tetanus Vaccination: Yes Hx Pneumococcal Vaccination: 12/22/08 <LOUISA MESA - Last Filed: 08/17/16 12:53> Review of Systems - Review of Systems Constitutional: No symptoms reported EENT: See HPI Cardiovascular: No symptoms reported Respiratory: No symptoms reported Gastrointestinal: No symptoms reported Genitourinary: No symptoms reported Male Genitourinary: No symptoms reported Musculoskeletal: See HPI Skin: No symptoms reported Hematologic/Lymphatic: No symptoms reported Neurological/Psychological: See HPI -: Yes All other systems reviewed and negative <LOUISA MESA - Last Filed: 08/17/16 12:53> Physical Exam - General General appearance: Alert, Other - patient at baseline per spouse, thin appearing, not much interaction In distress: Mild - HEENT Head: Normocephalic, Other - superficial laceration to the center of the forehead with some dry crusted blood Eyes: Normal Pupils: PERRL Mucous membranes: Moist - Respiratory Respiratory status: No respiratory distress Chest status: Nontender Breath sounds: Normal Chest palpation: Normal - Cardiovascular Rhythm: Regular Heart sounds: Normal auscultation Murmur: No - Abdominal Inspection: Normal Distension: No distension Bowel sounds: Normal Tenderness: Nontender Organomegaly: No organomegaly - Back Back: Normal, Nontender - Extremities General upper extremity: Other - able to move and flex fingers on the right hand , able to passively extend fingers on right hand, old ecchymosis of the right knuckles General lower extremity: Normal inspection, Normal ROM, Normal strength - Neurological Neuro grossly intact: Yes Cognition: Normal Dolores Coma Scale Eye Opening: Spontaneous [place] Coma Scale Verbal: Oriented [place] Coma Scale Motor: Obeys Commands Dolores Coma Scale Total: 15 Speech: Other - patient is mostly nonverbal but does occasionally mumble - Psychological Associated symptoms: Other - patient is at his psychological baseline per spouse - Skin Skin Temperature: Warm Skin Moisture: Dry <MOSHELOUISA - Last Filed: 08/17/16 12:53> Course - Laboratory Result Diagrams: 08/17/16 12:27 08/17/16 12:27 <MOSHELOUISA - Last Filed: 08/17/16 12:53> - Laboratory Result Diagrams: 08/17/16 12:27 08/17/16 12:27 - Diagnostic Test Radiology reviewed: Image reviewed, Reports reviewed - CT scan shows chronic microvascular ischemic changes. Chest x-ray shows a new right lower lobe or right middle lobe pneumonia. - EKG Interpretation by Tx EKG shows normal: Sinus rhythm, [place], Intervals, QRS Complexes, ST-T Waves Rate: Normal - 65 Rhythm: Arrthymia - Consults Dr. Calhoun Time consulted: 15:50 Consulted provider: will see as inpatient <SHIRA FELTON - Last Filed: 08/17/16 16:00> - Re-evaluation Re-evalutation: 08/17/16 16:00 Patient did fail the swallow test, this is new right lower lobe infiltrate is likely aspiration. (SHIRA FELTON) - Vital Signs Vital signs: Temp Pulse Resp BP Pulse Ox 97.7 F 68 15 104/60 100 08/17/16 12:28 08/17/16 11:54 08/17/16 14:01 08/17/16 14:01 08/17/16 14:01 - Laboratory Laboratory results interpreted by me: 08/17/16 08/17/16 08/17/16 12:27 12:27 12:27 RBC 3.95 L MCV 105 H MCH 35.3 H Plt Count 114 L Lymphocytes % 12.5 L APTT 37.2 H Sodium 145.8 H BUN 48 H Creatinine 1.84 H Est GFR ( Amer) 44 L Est GFR (Non-Af Amer) 36 L Glucose 132 H AST 109 H Creatine Kinase 941 H CK-MB (CK-2) Urine Ketones Urine Urobilinogen Valproic Acid 18.4 L 08/17/16 08/17/16 12:27 14:56 RBC MCV MCH Plt Count Lymphocytes % APTT Sodium BUN Creatinine Est GFR ( Amer) Est GFR (Non-Af Amer) Glucose AST Creatine Kinase CK-MB (CK-2) 7.25 H Urine Ketones TRACE H Urine Urobilinogen 2.0 H Valproic Acid Critical Care Note - Critical Care Note Total time excluding time spent on procedures (mins): 35 <SHIRA FELTON - Last Filed: 08/17/16 16:00> Discharge <LOUISA MESA - Last Filed: 08/17/16 12:53> - Discharge Admitting Provider: Marissa Calhoun is covering Unit Admitted: I[facility]U <SHIRA FELTON - Last Filed: 08/17/16 16:00> - Discharge Clinical Impression: Dehydration Rhabdomyolysis Qualifiers: Rhabdomyolysis type: non-traumatic Qualified Code(s): M62.82 - Rhabdomyolysis Forehead contusion Qualifiers: Encounter type: initial encounter Qualified Code(s): S00.83XA - Contusion of other part of head, initial encounter Dementia in Parkinson's disease Qualifiers: Dementia behavioral disturbance: without behavioral disturbance Qualified Code( s): G20 - Parkinson's disease Hypotension Qualifiers: Hypotension type: other hypotension type Qualified Code(s): I95.89 - Other hypotension Pneumonia Qualifiers: Pneumonia type: due to unspecified organism Laterality: right Lung location: middle lobe of lung Qualified Code(s): J18.1 - Lobar pneumonia, unspecified organism Referrals: GAVI FARLEY MD [Primary Care Provider] - Follow up as needed Scribe Attestation: 08/17/16 15:42 I personally performed the services described in the documentation, reviewed and edited the documentation which was dictated to the scribe in my presence, and it accurately records my words and actions. (SHIRA FELTON) Scribe Documentation - Scribe Written by Scribe:: Lor Nieves, 08/17/16 12:20 acting as scribe for :: Adeel <LOUISA MESA - Last Filed: 08/17/16 12:53>
[2016-08-17] MEDS ORDERED: NORMAL SALINE 1000 ML 1,000 ML IV ONE ×3 (12:32→16:00)
[2016-08-17 12:45] LABS: ABSOLUTE EOSINOPHILS # (AUTO) 0.1 10^3/uL (0.0-0.6); ABSOLUTE LYMPHOCYTES (AUTO) 0.7 10^3/uL (0.5-4.7); ABSOLUTE MONOCYTES (AUTO) 0.4 10^3/uL (0.1-1.4); BASOPHILS % (AUTO) 0.8 % (0-2); EOSINOPHILS % (AUTO) 2.7 % (0-6); HEMATOCRIT 41.2 % (37.9-51.0); HEMOGLOBIN 13.9 g/dL (13.5-17.0); HGB HCT DIFFERENCE 0.5; LYMPHOCYTES % (AUTO) 12.5 % (13-45); MEAN CORPUSCULAR HEMOGLOBIN 35.3 pg (27.0-33.4); MEAN CORPUSCULAR HGB CONC 33.8 g/dL (32.0-36.0); MEAN CORPUSCULAR VOLUME 105 fl (80-97); MONOCYTES % (AUTO) 7.7 % (3-13); RED BLOOD COUNT 3.95 10^6/uL (4.35-5.55); RED CELL DISTRIBUTION WIDTH 12.3 % (11.5-14.0); SEGMENTED NEUTROPHILS % (AUTO) 76.3 % (42-78); WHITE BLOOD COUNT 5.2 10^3/uL (4.0-10.5)
[2016-08-17 12:46] LABS: PROTHROMBIN TIME 14.2 SEC (11.4-15.4)
[2016-08-17 12:47] LABS: PARTIAL THROMBOPLASTIN TIME 37.2 SEC (23.5-35.8)
[2016-08-17 13:02] LABS: ALANINE AMINOTRANSFERASE 38 U/L (21-72); ALBUMIN 3.7 g/dL (3.5-5.0); ALKALINE PHOSPHATASE 72 U/L (38-126); ANION GAP 13 (5-19); ASPARTATE AMINO TRANSFERASE 109 U/L (17-59); BILIRUBIN,DIRECT 0.3 mg/dL (0.0-0.4); BILIRUBIN,TOTAL 1.1 mg/dL (0.2-1.3); BLOOD UREA NITROGEN 48 mg/dL (7-20); CALCIUM 9.2 mg/dL (8.4-10.2); CARBON DIOXIDE 29 mmol/L (22-30); CHLORIDE 104 mmol/L (98-107); CREATINE KINASE 941 U/L (55-170); CREATININE RESULT 1.84 mg/dL (0.52-1.25); GLUCOSE 132 mg/dL (75-110); POTASSIUM 4.7 mmol/L (3.6-5.0); SODIUM 145.8 mmol/L (137-145); TOTAL PROTEIN 7.1 g/dL (6.3-8.2)
[2016-08-17 13:08] LABS: VALPROIC ACID 18.4 ug/mL (50.0-120.0)
[2016-08-17 13:17] LABS: CREATINE KINASE MB 7.25 ng/mL (<4.55)
--- NOTE | 2016-08-17 13:17 | RADIOLOGY REPORT (SQ) ---
EXAM DESCRIPTION: CHEST SINGLE VIEW COMPLETED DATE/TIME: 08/17/2016 12:53 pm REASON FOR STUDY: bed 15 stroke alert COMPARISON: 08/08/2016 EXAM PARAMETERS: NUMBER OF VIEWS: One view. TECHNIQUE: Single frontal radiographic view of the chest acquired. RADIATION DOSE: NA LIMITATIONS: None. FINDINGS: LUNGS AND PLEURA: There is ill-defined opacity in the right lower lung field. MEDIASTINUM AND HILAR STRUCTURES: No masses. Contour normal. HEART AND VASCULAR STRUCTURES: Heart normal in size. Normal vasculature. BONES: No acute findings. HARDWARE: None in the chest. OTHER: No other significant finding. IMPRESSION: Right middle lobe or lower lobe pneumonia. TECHNICAL DOCUMENTATION: JOB ID: [id number]
--- NOTE | 2016-08-17 13:18 | RADIOLOGY REPORT (SQ) ---
EXAM DESCRIPTION: CT HEAD WITHOUT COMPLETED DATE/TIME: 08/17/2016 1:03 pm REASON FOR STUDY: 15; AMS COMPARISON: 08/08/2016. TECHNIQUE: Axial images acquired through the brain without intravenous contrast. Images reviewed wi th bone, brain and subdural windows. Images stored on PACS. All CT scanners at this facility use dose modulation, iterative reconstruction, and/or weight based d osing when appropriate to reduce radiation dose to as low as reasonably achievable (ALARA). [facility]: Dose Right [facility]: CareDose [facility]: Dose Right [facility]: Teradose 4D [facility]: [employer] RADIATION DOSE: 63.72 mGy. LIMITATIONS: None. FINDINGS: VENTRICLES: Prominent. CEREBRUM: No masses. No hemorrhage. No midline shift. Areas of low density in the white matter mos t likely due to chronic micro-vascular ischemic change. No evidence for acute infarction. CEREBELLUM: No masses. No hemorrhage. No alteration of density. No evidence for acute infarction. EXTRAAXIAL SPACES: Mild age-related involutional change. No fluid collections. No masses. ORBITS AND GLOBE: No intra- or extraconal masses. Normal contour of globe without masses. CALVARIUM: No fracture. PARANASAL SINUSES: No fluid or mucosal thickening. SOFT TISSUES: No mass or hematoma. OTHER: No other significant finding. IMPRESSION: MILD CHRONIC CHANGES OF ATROPHY AND MICROVASCULAR ISCHEMIA. NO ACUTE PROCESS. TECHNICAL DOCUMENTATION: JOB ID: [id number] Quality ID # [id number]: Final reports with documentation of one or more dose reduction techniques (e.g., Au tomated exposure control, adjustment of the mA and/or kV according to patient size, use of iterative reconstruction technique) 2010 [employer]- All Rights Reserved
[2016-08-17 13:20] LABS: TROPONIN I 0.071 ng/mL
[2016-08-17 15:20] LABS: APPEARANCE,URINE CLEAR; BILIRUBIN,URINE NEGATIVE (NEGATIVE); GLUCOSE, URINE NEGATIVE (NEGATIVE); KETONES,URINE TRACE mg/dL (NEGATIVE); LEUKOCYTE ESTERASE,URINE NEGATIVE (NEGATIVE); NITRITE,URINE NEGATIVE (NEGATIVE); PROTEIN,URINE NEGATIVE (NEGATIVE); URINE SPECIFIC GRAVITY 1.016
[2016-08-17] MEDS ORDERED: LEVOFLOXACIN 750 MG/D5W RTU 150 ML IV ONE (15:33)
[2016-08-17] MEDS ORDERED: CEFEPIME 1 GM/D5W RTU 50 ML IV ONE (15:55)
[2016-08-17] MEDS ORDERED: ACETAMINOPHEN 325 MG TABLET PO PRN (15:59)
[2016-08-17 17:36] LABS: CREATINE KINASE MB 5.95 ng/mL (<4.55); TROPONIN I 0.045 ng/mL
[2016-08-17] MEDS: IPRATROPIUM/ALBUTEROL 0.5-2.5 MG/3 ML AMPUL NEB SCH (20:03)
--- NOTE | 2016-08-17 20:43 | HISTORY AND PHYSICAL E ---
History and Physical NAME: ESTHER VILLALTA : 1940 AGE: 76Y ADMITTED: 08/17/2016 ROOM: 323 HISTORY OF PRESENT ILLNESS: This is a 76-year-old patient of Dr. Dior, currently living in a prison, with a history of Parkinson disorder, dementia, history of subdural hematoma secondary to a fall and a history of atrial fibrillation and multiple other medical problems, came to the emergency department from the prison for possible stroke-like symptoms. According to the prison, the patient having some difficulty in swallowing. The patient recently seen on 08/08/16 for a fall and hematoma on the right side of the head. The patient was sent to the ED for some difficulty in swallowing that was different from the baseline. 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 The patient's spouse is present with the patient and said that the patient is in the baseline. The patient is not interactive and is mostly nonverbal. The patient's initial workup in the emergency department found some right-sided pneumonia which is new and the patient's blood pressure was running low. Other than that, the patient's head CT was also negative too and decided to admit him to [facility] for further evaluation and treatment. The patient's is not sure about the code status and the prison people are not very clear about the code status too. PAST MEDICAL HISTORY: 1. History of Parkinson disorder. 2. History of hypertension. 3. History of chronic kidney disease. 4. History of dementia. 5. History of subdural hematoma. 6. History of pneumonia in the past. 7. History of presence of IVC filter; was placed in dant this year. ALLERGIES: HYDROCHLOROTHIAZIDE. CURRENT MEDICATIONS: 1. Salagen 5 mg. 2. Exelon 9.5 mg 24 hours subdural daily. 3. Lasix 20 mg daily. 4. Seroquel 25 mg daily. 5. Sinemet 1.5 tablet q.i.d. 6. Atenolol 50 mg twice daily. 7. Aspirin 81 mg daily. 8. Albuterol daily. SOCIAL HISTORY: No alcohol, no substance drug abuse. REVIEW OF SYSTEMS: Unable to obtain other than as per the family and nursing staff; as above, all others are negative. PHYSICAL EXAMINATION: VITAL SIGNS: Pulse 58, blood pressure was 104/60 the last one (the patient initially presented with 99/63), respirations 15, 02 saturation is 100% on room air. GENERAL: The patient is at baseline per spouse in appearance, not much interactions. No distress. HEENT: Normocephalic. There was a superficial laceration on the center of the forehead with some dried crusted blood. Eyes are normal. Mucous membranes are moist. LUNGS: No wheezing, no rales, no rhonchi. HEART: S1 and S2 are present. ABDOMEN: Soft. Bowel sounds present. EXTREMITIES: Patient is able to move and flex the fingers in the right hand, able to passively extend the fingers on the right hand. Old ecchymosis of the right knuckles. The patient has no edema. NEUROLOGIC: Cognition is normal, spontaneous function. Patient obeys commands. LABORATORY DATA: WBC is 5.2, hemoglobin 13.9, platelets 114. Chemistries: Sodium is 145, potassium 4.7, BUN 48, creatinine 1.84. AST 109, ALT 38, creatine kinase was *------*, CK-MB was 7.25, troponin 0.071. The patient's last creatinine in 07/04 was [address] The head CT was negative for any acute findings. Chest x-ray: Right middle lobe and lower lobe pneumonia. The patient's EKG shows atrial fibrillation but I can see the P-waves. The patient has a lot of tremor from Parkinson's. ASSESSMENT: 1. Altered mental status, most likely underlying sepsis. 2. Right lower lobe pneumonia. 3. Hypertension. 4. Dementia. 5. Parkinson disorder. 6. History of subdural hematoma in the past. 7. Status post IVC filter. 8. Atrial fibrillation, questionable. 9. Chronic debilitating conditions. PLAN: At this point is to put the patient in the IMCU. Start the patient on IV cefepime and the Levaquin. The patient does not look like any acute stroke-like symptom at this point. Very hard to evaluate but per the patient's , the patient is currently on baseline status. Will continue to monitor the patient in the IMCU, get the IV fluids, get the blood culture and urine culture and continue to monitor the patient at this point. The patient's cardiac enzymes are slightly elevated due to the underlying probably kidney failure. Will repeat the cardiac enzymes and EKG. I hope the patient continues to be improved. Discussed with the family in the room regarding the patient's current conditions. More than 45 minutes spent examining the patient and reviewing the records. DICTATING PHYSICIAN: LEIGHTON GRIFFIN M.D. [id number] PHY#: [id number] ID: [id number] JOB#: [id number] ACCT: [id number] cc:GAVI FARLEY M.D., SWETANG M.D. >
[2016-08-17] MEDS: FAMOTIDINE INJ/PF 20 MG/2 ML SDV IV SCH (21:29)
[2016-08-18 00:09] LABS: CREATINE KINASE MB 5.71 ng/mL (<4.55); TROPONIN I 0.067 ng/mL
[2016-08-18] MEDS: NORMAL SALINE 1000 ML 1,000 ML IV PRN ×2 (02:01→12:42)
[2016-08-18] MEDS: IPRATROPIUM/ALBUTEROL 0.5-2.5 MG/3 ML AMPUL NEB SCH ×4 (02:25→20:23)
[2016-08-18] MEDS: CEFEPIME 1 GM/D5W RTU 1 GM/50 ML RTUPB IV SCH ×2 (05:04→18:11)
[2016-08-18 06:34] LABS: ABSOLUTE EOSINOPHILS # (AUTO) 0.1 10^3/uL (0.0-0.6); ABSOLUTE LYMPHOCYTES (AUTO) 0.8 10^3/uL (0.5-4.7); ABSOLUTE MONOCYTES (AUTO) 0.6 10^3/uL (0.1-1.4); ABSOLUTE NEUT (AUTO) 4.1 10^3/uL (1.7-8.2); BASOPHILS % (AUTO) 0.5 % (0-2); EOSINOPHILS % (AUTO) 2.4 % (0-6); HEMATOCRIT 34.5 % (37.9-51.0); MEAN CORPUSCULAR HEMOGLOBIN 34.3 pg (27.0-33.4); MEAN CORPUSCULAR HGB CONC 33.3 g/dL (32.0-36.0); MEAN CORPUSCULAR VOLUME 103 fl (80-97); MONOCYTES % (AUTO) 10.1 % (3-13); RED BLOOD COUNT 3.35 10^6/uL (4.35-5.55); RED CELL DISTRIBUTION WIDTH 12.2 % (11.5-14.0); WHITE BLOOD COUNT 5.7 10^3/uL (4.0-10.5)
[2016-08-18 06:51] LABS: ANION GAP 11 (5-19); BLOOD UREA NITROGEN 33 mg/dL (7-20); CALCIUM 8.6 mg/dL (8.4-10.2); CARBON DIOXIDE 24 mmol/L (22-30); CHLORIDE 109 mmol/L (98-107); CREATINE KINASE 620 U/L (55-170); CREATININE RESULT 1.39 mg/dL (0.52-1.25); GLUCOSE 79 mg/dL (75-110); MAGNESIUM 1.8 mg/dL (1.6-2.3); POTASSIUM 4.3 mmol/L (3.6-5.0); SODIUM 144.3 mmol/L (137-145)
[2016-08-18 06:55] LABS: HEMOGLOBIN 11.5 g/dL (13.5-17.0)
[2016-08-18 07:00] LABS: CREATINE KINASE MB 3.7 ng/mL (<4.55); TROPONIN I 0.083 ng/mL
[2016-08-18] MEDS: ENOXAPARIN SODIUM INJ 30 MG/0.3 ML DISP.SYRIN SUBCUT SCH (08:05)
[2016-08-18] MEDS: FAMOTIDINE INJ/PF 20 MG/2 ML SDV IV SCH ×2 (09:34→22:21)
--- NOTE | 2016-08-18 10:00 | EKG REPORT ---
SEVERITY:- ABNORMAL ECG - PROBABLE SINUS RHYTHM WOTH APCs. REC RHYTHM STRIP : Confirmed by: Saqib Gipson 18-Aug-2016 09:59:29
[2016-08-18] MEDS ORDERED: HALOPERIDOL LACTATE INJ 5 MG/1 ML VIAL IM PRN (15:41)
[2016-08-18] MEDS ORDERED: LORAZEPAM 0.5 MG TABLET PO PRN (15:41)
[2016-08-18] MEDS ORDERED: HALOPERIDOL 5 MG TABLET PO PRN (15:41)
[2016-08-18] MEDS ORDERED: ACETAMINOPHEN 325 MG TABLET PO PRN (15:41)
[2016-08-18] MEDS ORDERED: ALBUTEROL SULFATE HFA (90 MCG/PUFF) 8 GM MDI (1 MDI/ER DISP) IH PRN (15:41)
[2016-08-18] MEDS ORDERED: RIVASTIGMINE 9.5 MG/24 HR PATCH.TD24 TD ONE (16:30)
[2016-08-18] MEDS ORDERED: LISINOPRIL 5 MG TABLET PO ONE (17:00)
[2016-08-18] MEDS ORDERED: ASPIRIN 81 MG TABLET, ENT COATED PO ONE (17:00)
[2016-08-18] MEDS ORDERED: FUROSEMIDE 40 MG TABLET PO ONE (17:00)
[2016-08-18] MEDS ORDERED: BUPROPION HCL 75 MG TABLET PO ONE (17:00)
[2016-08-18] MEDS: LEVOFLOXACIN 500 MG/D5W RTU 500 MG/100 ML RTUPB IV SCH (17:02)
[2016-08-18] MEDS: CARBIDOPA/LEVODOPA 25-100 MG TABLET PO SCH ×2 (17:02→22:21)
--- NOTE | 2016-08-18 20:51 | PDOC PROGRESS REPORT ---
Subjective Progress Note for:: 08/18/16 Subjective:: Patient was seen by the bedside, he was admitted yesterday because of pneumonia in the right lower lobe ,he has advanced dementia in the setting of Parkinson disease, associated agitation he has swelling of the right and, the etiology is not clear, CAT scan will be requested. She is concerned about the swelling she said he has not been able to use the hand to eat. He does not particularly communicate Physical Exam Vital Signs: Temp Pulse Resp BP Pulse Ox 97.4 F 81 20 128/67 H 93 08/18/16 19:27 08/18/16 19:27 08/18/16 19:27 08/18/16 19:27 08/18/16 19:27 Intake & Output 08/17/16 08/18/16 08/19/16 06:59 06:59 06:59 Intake Total 1281 1221 Output Total 1 Balance 1280 1221 Weight 66 kg General appearance: PRESENT: no acute distress Eye exam: PRESENT: PERRLA Respiratory exam: PRESENT: rhonchi Cardiovascular exam: PRESENT: +S1, +S2 GI/Abdominal exam: PRESENT: soft Neurological exam: PRESENT: alert Results Laboratory Results: 08/18/16 05:49 08/18/16 05:49 08/18/16 08/18/16 05:49 05:49 WBC 5.7 RBC 3.35 L Hgb 11.5 L D Hct 34.5 L MCV 103 H MCH 34.3 H MCHC 33.3 RDW 12.2 Plt Count 105 L Seg Neutrophils % 73.0 Lymphocytes % 14.0 Monocytes % 10.1 Eosinophils % 2.4 Basophils % 0.5 Absolute Neutrophils 4.1 Absolute Lymphocytes 0.8 Absolute Monocytes 0.6 Absolute Eosinophils 0.1 Absolute Basophils 0.0 Sodium 144.3 Potassium 4.3 Chloride 109 H Carbon Dioxide 24 Anion Gap 11 BUN 33 H Creatinine 1.39 H Est GFR ( Amer) > 60 Est GFR (Non-Af Amer) 50 L Glucose 79 Calcium 8.6 Magnesium 1.8 08/17/16 08/17/16 08/17/16 16:50 16:50 23:33 Creatine Kinase 771 H 739 H CK-MB (CK-2) 5.95 H Troponin I 0.045 NT-Pro-B Natriuret Pep 08/17/16 08/18/16 08/18/16 23:33 05:49 05:49 Creatine Kinase 620 H CK-MB (CK-2) 5.71 H 3.70 Troponin I 0.067 0.083 NT-Pro-B Natriuret Pep 2750 H Impressions: Chest X-Ray 08/17/16 11:54 IMPRESSION: Right middle lobe or lower lobe pneumonia. Head CT 08/17/16 11:54 IMPRESSION: MILD CHRONIC CHANGES OF ATROPHY AND MICROVASCULAR ISCHEMIA. NO ACUTE PROCESS. Assessment & Plan - Diagnosis (1) Pneumonia Qualifiers: Pneumonia type: due to unspecified organism Laterality: left Lung location: lower lobe of lung Qualified Code(s): J18.1 - Lobar pneumonia, unspecified organism Is this a current diagnosis for this admission?: YesPlan: The present IV antibiotic to be continued, he has a living will does suggest he does not want any extraordinary measures, suggested a DNR status this will be ordered in the chart. (2) Dementia in Parkinson's disease Qualifiers: Dementia behavioral disturbance: with behavioral disturbance Qualified Code(s): G20 - Parkinson's disease; F02.81 - Dementia in other diseases classified elsewhere with behavioral disturbance Is this a current diagnosis for this admission?: Yes (3) Swelling of right hand Is this a current diagnosis for this admission?: YesPlan: CAT scan of the right hand is ordered (4) Dementia in Parkinson's disease Qualifiers: Dementia behavioral disturbance: without behavioral disturbance Qualified Code(s): G20 - Parkinson's disease; F02.81 - Dementia in other diseases classified elsewhere with behavioral disturbance Is this a current diagnosis for this admission?: Yes
[2016-08-18] MEDS ORDERED: (PENDING PHARMACY ID) (Melatonin [Melatonin] 3 MG) PO SCH (22:00)
[2016-08-18] MEDS ORDERED: (PENDING PHARMACY ID) (Quetiapine Fumarate [Seroquel] 75 MG) PO SCH (22:00)
[2016-08-18] MEDS ORDERED: (PENDING PHARMACY ID) (Divalproex Sodium [Depakote] 125 MG) PO SCH (22:00)
[2016-08-18] MEDS: QUETIAPINE FUMARATE 25 MG TABLET PO SCH (22:21)
[2016-08-18] MEDS: DIVALPROEX SODIUM 125 MG CAP.SPRINK PO SCH (22:21)
[2016-08-18] MEDS: BUDESONIDE/FORMOTEROL 80-4.5 MCG 60 PUFF/6.9 GM MDI IH SCH (22:22)
[2016-08-18] MEDS: ATENOLOL 50 MG TABLET PO SCH (22:22)
[2016-08-19] MEDS: IPRATROPIUM/ALBUTEROL 0.5-2.5 MG/3 ML AMPUL NEB SCH ×4 (02:03→20:15)
--- NOTE | 2016-08-19 02:18 | RADIOLOGY REPORT (SQ) ---
EXAM DESCRIPTION: CT RT UPPER EXTREMITY WITHOUT COMPLETED DATE/TIME: 08/18/2016 11:01 pm REASON FOR STUDY: swelling of rt hand COMPARISON: Right wrist x-ray 08/08/2016 TECHNIQUE: Axial imaging performed through the right wrist with reformatted coronal and sagittal arian ging windowed for bone and soft tissues. Images saved to PACS. 3D IMAGING: Were 3D images as MIP, SSD, or volume rendering performed at the work station? No. All CT scanners at this facility use dose modulation, iterative reconstruction, and/or weight based d osing when appropriate to reduce radiation dose to as low as reasonably achievable (ALARA). [facility]: Dose Right [facility]: CareDose [facility]: Dose Right [facility]: Teradose 4D [facility]: [employer] LIMITATIONS: Suboptimal patient positioning. RADIATION DOSE: 2.36 mGy. FINDINGS: SOFT TISSUES: No obvious swelling or foreign body. BONES: No obvious acute fracture. The 5th digit is flexed at the proximal interphalangeal joint and distal interphalangeal joint. Mild degenerative changes at the 1st carpometacarpal joint. MINERALIZATION: Normal. IMPRESSION: Suboptimal patient positioning. No definite CT evidence for acute fracture. The 5th di git is flexed at the PIP and DIP joints, please correlate with clinical exam to exclude acute subluxa tions. If clinical concern persists, MRI can be obtained for further evaluation. TECHNICAL DOCUMENTATION: JOB ID: [id number] PR-64 Quality ID # [id number]: Final reports with documentation of one or more dose reduction techniques (e.g., Au tomated exposure control, adjustment of the mA and/or kV according to patient size, use of iterative reconstruction technique) 2010 [employer]- All Rights Reserved
[2016-08-19] MEDS: NORMAL SALINE 1000 ML 1,000 ML IV PRN (03:55)
[2016-08-19] MEDS: CEFEPIME 1 GM/D5W RTU 1 GM/50 ML RTUPB IV SCH ×2 (05:15→16:36)
[2016-08-19 06:28] LABS: ABSOLUTE EOSINOPHILS # (AUTO) 0.2 10^3/uL (0.0-0.6); ABSOLUTE LYMPHOCYTES (AUTO) 1.1 10^3/uL (0.5-4.7); ABSOLUTE MONOCYTES (AUTO) 0.6 10^3/uL (0.1-1.4); ABSOLUTE NEUT (AUTO) 3.1 10^3/uL (1.7-8.2); BASOPHILS % (AUTO) 0.9 % (0-2); EOSINOPHILS % (AUTO) 4.8 % (0-6); HEMOGLOBIN 11.7 g/dL (13.5-17.0); HGB HCT DIFFERENCE 1.1; MEAN CORPUSCULAR HEMOGLOBIN 35.4 pg (27.0-33.4); MEAN CORPUSCULAR HGB CONC 34.5 g/dL (32.0-36.0); MEAN CORPUSCULAR VOLUME 103 fl (80-97); MONOCYTES % (AUTO) 11.6 % (3-13); RED BLOOD COUNT 3.32 10^6/uL (4.35-5.55); RED CELL DISTRIBUTION WIDTH 12.1 % (11.5-14.0); SEGMENTED NEUTROPHILS % (AUTO) 61.7 % (42-78); WHITE BLOOD COUNT 5.1 10^3/uL (4.0-10.5)
[2016-08-19 06:47] LABS: ANION GAP 9 (5-19); BLOOD UREA NITROGEN 24 mg/dL (7-20); CALCIUM 8.6 mg/dL (8.4-10.2); CARBON DIOXIDE 27 mmol/L (22-30); CHLORIDE 106 mmol/L (98-107); CREATININE RESULT 1.34 mg/dL (0.52-1.25); GLUCOSE 72 mg/dL (75-110); MAGNESIUM 1.7 mg/dL (1.6-2.3); POTASSIUM 4.1 mmol/L (3.6-5.0); SODIUM 141.9 mmol/L (137-145)
[2016-08-19] MEDS ORDERED: (PENDING PHARMACY ID) (Quetiapine Fumarate [Seroquel] 50 MG) PO SCH (10:00)
[2016-08-19] MEDS: ATENOLOL 50 MG TABLET PO SCH ×2 (10:15→21:02)
[2016-08-19] MEDS: ASPIRIN 81 MG TABLET, ENT COATED PO SCH (10:16)
[2016-08-19] MEDS: CARBIDOPA/LEVODOPA 25-100 MG TABLET PO SCH ×4 (10:16→20:55)
[2016-08-19] MEDS: FUROSEMIDE 40 MG TABLET PO SCH (10:17)
[2016-08-19] MEDS: LISINOPRIL 5 MG TABLET PO SCH (10:17)
[2016-08-19] MEDS: BUPROPION HCL 75 MG TABLET PO SCH (10:17)
[2016-08-19] MEDS: QUETIAPINE FUMARATE 25 MG TABLET PO SCH ×2 (10:17→20:54)
[2016-08-19] MEDS: RIVASTIGMINE 9.5 MG/24 HR PATCH.TD24 TD SCH (10:18)
[2016-08-19] MEDS: ENOXAPARIN SODIUM INJ 30 MG/0.3 ML DISP.SYRIN SUBCUT SCH (10:18)
[2016-08-19] MEDS: FAMOTIDINE INJ/PF 20 MG/2 ML SDV IV SCH ×2 (10:18→20:55)
[2016-08-19] MEDS: BUDESONIDE/FORMOTEROL 80-4.5 MCG 60 PUFF/6.9 GM MDI IH SCH ×2 (10:18→20:54)
[2016-08-19] MEDS: LEVOFLOXACIN 500 MG/D5W RTU 500 MG/100 ML RTUPB IV SCH (16:36)
--- NOTE | 2016-08-19 19:48 | PDOC PROGRESS REPORT ---
Subjective Progress Note for:: 08/19/16 Subjective:: Patient was seen by the bedside, is better today than yesterday. CAT scan of the right hand and was obtained yesterday did not establish any fracture or any acute injury. Patient's spouse was in the room with him , the plan of care was discussed with her Physical Exam Vital Signs: Temp Pulse Resp BP Pulse Ox 97.6 F 67 18 106/58 L 95 08/19/16 12:00 08/19/16 14:29 08/19/16 14:29 08/19/16 12:00 08/19/16 14:29 Intake & Output 08/18/16 08/19/16 08/20/16 06:59 06:59 06:59 Intake Total 1281 1922 1260 Output Total 1 Balance 1280 1922 1260 Weight 66 kg 66.8 kg General appearance: PRESENT: no acute distress Eye exam: PRESENT: PERRLA Respiratory exam: PRESENT: crackles Cardiovascular exam: PRESENT: +S1, +S2 GI/Abdominal exam: PRESENT: soft Neurological exam: PRESENT: alert, CN II-XII grossly intact Results Laboratory Results: 08/19/16 05:27 08/19/16 05:27 08/19/16 08/19/16 05:27 05:27 WBC 5.1 RBC 3.32 L Hgb 11.7 L Hct 34.0 L MCV 103 H MCH 35.4 H MCHC 34.5 RDW 12.1 Plt Count 110 L Seg Neutrophils % 61.7 Lymphocytes % 21.0 Monocytes % 11.6 Eosinophils % 4.8 Basophils % 0.9 Absolute Neutrophils 3.1 Absolute Lymphocytes 1.1 Absolute Monocytes 0.6 Absolute Eosinophils 0.2 Absolute Basophils 0.0 Sodium 141.9 Potassium 4.1 Chloride 106 Carbon Dioxide 27 Anion Gap 9 BUN 24 H Creatinine 1.34 H Est GFR ( Amer) > 60 Est GFR (Non-Af Amer) 52 L Glucose 72 L Calcium 8.6 Magnesium 1.7 08/17/16 19:40 Nasophary (Mrsa Only) MRSA Surveillance Culture - Final MRSA RECOVERED 08/17/16 08/17/16 08/17/16 16:50 16:50 23:33 Creatine Kinase 771 H 739 H CK-MB (CK-2) 5.95 H Troponin I 0.045 NT-Pro-B Natriuret Pep 08/17/16 08/18/16 08/18/16 23:33 05:49 05:49 Creatine Kinase 620 H CK-MB (CK-2) 5.71 H 3.70 Troponin I 0.067 0.083 NT-Pro-B Natriuret Pep 2750 H Impressions: Chest X-Ray 08/17/16 11:54 IMPRESSION: Right middle lobe or lower lobe pneumonia. Head CT 08/17/16 11:54 IMPRESSION: MILD CHRONIC CHANGES OF ATROPHY AND MICROVASCULAR ISCHEMIA. NO ACUTE PROCESS. Upper Extremity CT 08/18/16 00:00 IMPRESSION: Suboptimal patient positioning. No definite CT evidence for acute fracture. The 5th digit is flexed at the PIP and DIP joints, please correlate with clinical exam to exclude acute subluxations. If clinical concern persists , MRI can be obtained for further evaluation. Assessment & Plan - Diagnosis (1) Pneumonia Qualifiers: Pneumonia type: due to unspecified organism Laterality: left Lung location: lower lobe of lung Qualified Code(s): J18.1 - Lobar pneumonia, unspecified organism Is this a current diagnosis for this admission?: Yes (2) Dementia in Parkinson's disease Qualifiers: Dementia behavioral disturbance: with behavioral disturbance Qualified Code(s): G20 - Parkinson's disease; F02.81 - Dementia in other diseases classified elsewhere with behavioral disturbance Is this a current diagnosis for this admission?: Yes (3) Swelling of right hand Is this a current diagnosis for this admission?: Yes (4) Dementia in Parkinson's disease Qualifiers: Dementia behavioral disturbance: without behavioral disturbance Qualified Code(s): G20 - Parkinson's disease; F02.81 - Dementia in other diseases classified elsewhere with behavioral disturbance Is this a current diagnosis for this admission?: Yes - Plan Summary Plan Summary: Continue IV antibiotic
[2016-08-19] MEDS: DIVALPROEX SODIUM 125 MG CAP.SPRINK PO SCH (21:02)
[2016-08-20] MEDS: NORMAL SALINE 1000 ML 1,000 ML IV PRN ×2 (01:39→22:07)
[2016-08-20] MEDS: IPRATROPIUM/ALBUTEROL 0.5-2.5 MG/3 ML AMPUL NEB SCH ×4 (02:34→20:19)
[2016-08-20] MEDS: CEFEPIME 1 GM/D5W RTU 1 GM/50 ML RTUPB IV SCH ×2 (05:14→17:00)
[2016-08-20 05:18] LABS: ABSOLUTE EOSINOPHILS # (AUTO) 0.4 10^3/uL (0.0-0.6); ABSOLUTE MONOCYTES (AUTO) 0.6 10^3/uL (0.1-1.4); ABSOLUTE NEUT (AUTO) 3.5 10^3/uL (1.7-8.2); BASOPHILS % (AUTO) 0.7 % (0-2); EOSINOPHILS % (AUTO) 7.6 % (0-6); HEMATOCRIT 34.2 % (37.9-51.0); HEMOGLOBIN 11.5 g/dL (13.5-17.0); HGB HCT DIFFERENCE 0.3; LYMPHOCYTES % (AUTO) 18.3 % (13-45); MEAN CORPUSCULAR HEMOGLOBIN 34.5 pg (27.0-33.4); MEAN CORPUSCULAR HGB CONC 33.8 g/dL (32.0-36.0); MEAN CORPUSCULAR VOLUME 102 fl (80-97); MONOCYTES % (AUTO) 11.1 % (3-13); RED BLOOD COUNT 3.35 10^6/uL (4.35-5.55); RED CELL DISTRIBUTION WIDTH 12.1 % (11.5-14.0); SEGMENTED NEUTROPHILS % (AUTO) 62.3 % (42-78); WHITE BLOOD COUNT 5.6 10^3/uL (4.0-10.5)
[2016-08-20 05:27] LABS: ANION GAP 10 (5-19); BLOOD UREA NITROGEN 21 mg/dL (7-20); CALCIUM 8.7 mg/dL (8.4-10.2); CARBON DIOXIDE 25 mmol/L (22-30); CHLORIDE 105 mmol/L (98-107); CREATININE RESULT 1.19 mg/dL (0.52-1.25); GLUCOSE 73 mg/dL (75-110); MAGNESIUM 1.7 mg/dL (1.6-2.3); POTASSIUM 4.2 mmol/L (3.6-5.0); SODIUM 139.8 mmol/L (137-145)
[2016-08-20] MEDS: RIVASTIGMINE 9.5 MG/24 HR PATCH.TD24 TD SCH (11:56)
[2016-08-20] MEDS: ATENOLOL 50 MG TABLET PO SCH ×2 (11:56→22:06)
[2016-08-20] MEDS: ASPIRIN 81 MG TABLET, ENT COATED PO SCH (11:56)
[2016-08-20] MEDS: CARBIDOPA/LEVODOPA 25-100 MG TABLET PO SCH ×4 (11:57→22:06)
[2016-08-20] MEDS: BUPROPION HCL 75 MG TABLET PO SCH (11:57)
[2016-08-20] MEDS: FUROSEMIDE 40 MG TABLET PO SCH (11:58)
[2016-08-20] MEDS: ENOXAPARIN SODIUM INJ 30 MG/0.3 ML DISP.SYRIN SUBCUT SCH (11:59)
[2016-08-20] MEDS: LISINOPRIL 5 MG TABLET PO SCH (11:59)
[2016-08-20] MEDS: FAMOTIDINE INJ/PF 20 MG/2 ML SDV IV SCH ×2 (11:59→22:06)
[2016-08-20] MEDS: QUETIAPINE FUMARATE 25 MG TABLET PO SCH ×2 (11:59→22:06)
[2016-08-20] MEDS: BUDESONIDE/FORMOTEROL 80-4.5 MCG 60 PUFF/6.9 GM MDI IH SCH ×2 (12:00→22:06)
--- NOTE | 2016-08-20 13:04 | PDOC PROGRESS REPORT ---
Subjective Progress Note for:: 08/20/16 Subjective:: Baseline end stage Parkinson disease related dementia and not able to adequately contribute to his medical condition. Spouse at bedside did feed him adequately at lunch time. No reported fever or difficulty with breathing. Remain on IV Levofloxacin and Cefepime therapy. Physical Exam Vital Signs: Temp Pulse Resp BP Pulse Ox 97.8 F 67 16 166/80 H 100 08/20/16 11:23 08/20/16 11:23 08/20/16 11:23 08/20/16 11:23 08/20/16 11:23 Intake & Output 08/19/16 08/20/16 08/21/16 06:59 06:59 06:59 Intake Total 1921 2696 Balance 1921 2696 Weight 66.8 kg 70.4 kg General appearance: PRESENT: no acute distress Head exam: PRESENT: atraumatic, normocephalic Eye exam: PRESENT: PERRLA Mouth exam: PRESENT: moist Respiratory exam: PRESENT: clear to auscultation kalen, decreased breath sounds - at lung bases Cardiovascular exam: PRESENT: RRR. ABSENT: diastolic murmur, rubs, systolic murmur GI/Abdominal exam: PRESENT: normal bowel sounds. ABSENT: tenderness Musculoskeletal exam: PRESENT: deformity - from multiple joints involvement with arthritis. ABSENT: tenderness Neurological exam: PRESENT: altered - due to dementia Psychiatric exam: ABSENT: agitated Skin exam: PRESENT: dry, warm Results Laboratory Results: 08/20/16 04:45 08/20/16 04:45 08/20/16 08/20/16 04:45 04:45 WBC 5.6 RBC 3.35 L Hgb 11.5 L Hct 34.2 L MCV 102 H MCH 34.5 H MCHC 33.8 RDW 12.1 Plt Count 104 L Seg Neutrophils % 62.3 Lymphocytes % 18.3 Monocytes % 11.1 Eosinophils % 7.6 H Basophils % 0.7 Absolute Neutrophils 3.5 Absolute Lymphocytes 1.0 Absolute Monocytes 0.6 Absolute Eosinophils 0.4 Absolute Basophils 0.0 Sodium 139.8 Potassium 4.2 Chloride 105 Carbon Dioxide 25 Anion Gap 10 BUN 21 H Creatinine 1.19 Est GFR ( Amer) > 60 Est GFR (Non-Af Amer) > 60 Glucose 73 L Calcium 8.7 Magnesium 1.7 08/17/16 19:40 Nasophary (Mrsa Only) MRSA Surveillance Culture - Final MRSA RECOVERED 08/17/16 08/17/16 08/17/16 16:50 16:50 23:33 Creatine Kinase 771 H 739 H CK-MB (CK-2) 5.95 H Troponin I 0.045 NT-Pro-B Natriuret Pep 08/17/16 08/18/16 08/18/16 23:33 05:49 05:49 Creatine Kinase 620 H CK-MB (CK-2) 5.71 H 3.70 Troponin I 0.067 0.083 NT-Pro-B Natriuret Pep 2750 H Impressions: Chest X-Ray 08/17/16 11:54 IMPRESSION: Right middle lobe or lower lobe pneumonia. Head CT 08/17/16 11:54 IMPRESSION: MILD CHRONIC CHANGES OF ATROPHY AND MICROVASCULAR ISCHEMIA. NO ACUTE PROCESS. Upper Extremity CT 08/18/16 00:00 IMPRESSION: Suboptimal patient positioning. No definite CT evidence for acute fracture. The 5th digit is flexed at the PIP and DIP joints, please correlate with clinical exam to exclude acute subluxations. If clinical concern persists , MRI can be obtained for further evaluation. Assessment & Plan - Diagnosis (1) Dementia in Parkinson's disease Qualifiers: Dementia behavioral disturbance: without behavioral disturbance Qualified Code(s): G20 - Parkinson's disease; F02.81 - Dementia in other diseases classified elsewhere with behavioral disturbance Is this a current diagnosis for this admission?: YesPlan: Continue current supportive management. (2) Aspiration pneumonia Is this a current diagnosis for this admission?: YesPlan: Maintain on IV Levofloxacin and Cefepime coverage. Follow up on blood culture findings. - Time Time Spent with patient: 25-34 minutes Medications reviewed and adjusted accordingly: Yes Anticipated discharge: SNF Within: Other - Inpatient Certification Medical Necessity: Need Close Monitoring Due to Risk of Patient Decompensation, Need For IV Fluids, Need For Continuous Telemetry Monitoring, Need for IV Antibiotics, Risk of Complication if Not Cared For in Hospital - Plan Summary Plan Summary: See covering attending physician orders.
[2016-08-20] MEDS: LEVOFLOXACIN 500 MG/D5W RTU 500 MG/100 ML RTUPB IV SCH (17:01)
[2016-08-20] MEDS: DIVALPROEX SODIUM 125 MG CAP.SPRINK PO SCH (22:06)
[2016-08-21] MEDS: IPRATROPIUM/ALBUTEROL 0.5-2.5 MG/3 ML AMPUL NEB SCH ×4 (01:58→20:08)
[2016-08-21] MEDS: CEFEPIME 1 GM/D5W RTU 1 GM/50 ML RTUPB IV SCH ×2 (05:12→18:21)
[2016-08-21] MEDS: ASPIRIN 81 MG TABLET, ENT COATED PO SCH (10:24)
[2016-08-21] MEDS: LISINOPRIL 5 MG TABLET PO SCH (10:25)
[2016-08-21] MEDS: FAMOTIDINE INJ/PF 20 MG/2 ML SDV IV SCH ×2 (10:25→22:06)
[2016-08-21] MEDS: QUETIAPINE FUMARATE 25 MG TABLET PO SCH ×2 (10:27→22:06)
[2016-08-21] MEDS: ATENOLOL 50 MG TABLET PO SCH ×2 (10:29→22:06)
[2016-08-21] MEDS: CARBIDOPA/LEVODOPA 25-100 MG TABLET PO SCH ×4 (10:29→22:05)
[2016-08-21] MEDS: BUDESONIDE/FORMOTEROL 80-4.5 MCG 60 PUFF/6.9 GM MDI IH SCH ×2 (10:30→22:06)
[2016-08-21] MEDS: RIVASTIGMINE 9.5 MG/24 HR PATCH.TD24 TD SCH (10:30)
[2016-08-21] MEDS: ENOXAPARIN SODIUM INJ 30 MG/0.3 ML DISP.SYRIN SUBCUT SCH (10:31)
[2016-08-21] MEDS: BUPROPION HCL 75 MG TABLET PO SCH (10:31)
[2016-08-21] MEDS: FUROSEMIDE 40 MG TABLET PO SCH (10:31)
--- NOTE | 2016-08-21 12:07 | PDOC PROGRESS REPORT ---
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 No reported fever or difficulty with breathing. Remain on IV Levofloxacin and Cefepime therapy. Physical Exam Vital Signs: Temp Pulse Resp BP Pulse Ox 97.5 F 64 16 151/74 H 100 08/21/16 07:19 08/21/16 08:06 08/21/16 08:06 08/21/16 07:19 08/21/16 07:19 Intake & Output 08/20/16 08/21/16 08/22/16 06:59 06:59 06:59 Intake Total 2696 2472 Output Total 300 Balance 2696 2172 Weight 70.4 kg 72 kg Physical Exam: General appearance: PRESENT: no acute distress Head exam: PRESENT: atraumatic, normocephalic Eye exam: PRESENT: PERRLA Mouth exam: PRESENT: moist Respiratory exam: PRESENT: clear to auscultation kalen, decreased breath sounds - at lung bases Cardiovascular exam: PRESENT: RRR. ABSENT: diastolic murmur, rubs, systolic murmur GI/Abdominal exam: PRESENT: normal bowel sounds. ABSENT: tenderness Musculoskeletal exam: PRESENT: deformity - from multiple joints involvement with arthritis. ABSENT: tenderness Neurological exam: PRESENT: altered - due to dementia Psychiatric exam: ABSENT: agitated Skin exam: PRESENT: dry, warm Results Laboratory Results: 08/20/16 04:45 08/20/16 04:45 08/17/16 08/17/16 08/17/16 16:50 16:50 23:33 Creatine Kinase 771 H 739 H CK-MB (CK-2) 5.95 H Troponin I 0.045 NT-Pro-B Natriuret Pep 08/17/16 08/18/16 08/18/16 23:33 05:49 05:49 Creatine Kinase 620 H CK-MB (CK-2) 5.71 H 3.70 Troponin I 0.067 0.083 NT-Pro-B Natriuret Pep 2750 H Impressions: Chest X-Ray 08/17/16 11:54 IMPRESSION: Right middle lobe or lower lobe pneumonia. Head CT 08/17/16 11:54 IMPRESSION: MILD CHRONIC CHANGES OF ATROPHY AND MICROVASCULAR ISCHEMIA. NO ACUTE PROCESS. Upper Extremity CT 08/18/16 00:00 IMPRESSION: Suboptimal patient positioning. No definite CT evidence for acute fracture. The 5th digit is flexed at the PIP and DIP joints, please correlate with clinical exam to exclude acute subluxations. If clinical concern persists , MRI can be obtained for further evaluation. Assessment & Plan - Diagnosis (1) Dementia in Parkinson's disease Qualifiers: Dementia behavioral disturbance: without behavioral disturbance Qualified Code(s): G20 - Parkinson's disease; F02.81 - Dementia in other diseases classified elsewhere with behavioral disturbance Is this a current diagnosis for this admission?: Yes (2) Aspiration pneumonia Is this a current diagnosis for this admission?: Yes - Time Time Spent with patient: 25-34 minutes Medications reviewed and adjusted accordingly: Yes - Inpatient Certification Based on my medical assessment, after consideration of the patient's comorbidities, presenting symptoms, or acuity I expect that the services needed warrant INPATIENT care.: Yes I certify that my determination is in accordance with my understanding of Medicare's requirements for reasonable and necessary INPATIENT services [42 CFR 412.3e].: Yes Medical Necessity: Need Close Monitoring Due to Risk of Patient Decompensation, Need For IV Fluids, Need For Continuous Telemetry Monitoring, Need for IV Antibiotics, Risk of Complication if Not Cared For in Hospital Post Hospital Care: D/C Social Services Counselor Documentation - Plan Summary Plan Summary: See covering attending physician orders.
[2016-08-21] MEDS: LEVOFLOXACIN 500 MG/D5W RTU 500 MG/100 ML RTUPB IV SCH (18:21)
[2016-08-21] MEDS: DIVALPROEX SODIUM 125 MG CAP.SPRINK PO SCH (22:06)
[2016-08-21] MEDS: NORMAL SALINE 1000 ML 1,000 ML IV PRN (22:06)
[2016-08-22] MEDS: IPRATROPIUM/ALBUTEROL 0.5-2.5 MG/3 ML AMPUL NEB SCH ×4 (01:54→20:28)
[2016-08-22] MEDS: CEFEPIME 1 GM/D5W RTU 1 GM/50 ML RTUPB IV SCH (05:07)
[2016-08-22] MEDS: QUETIAPINE FUMARATE 25 MG TABLET PO SCH ×2 (10:07→21:41)
[2016-08-22] MEDS: BUPROPION HCL 75 MG TABLET PO SCH (10:07)
[2016-08-22] MEDS: ATENOLOL 50 MG TABLET PO SCH ×2 (10:08→21:41)
[2016-08-22] MEDS: CARBIDOPA/LEVODOPA 25-100 MG TABLET PO SCH ×4 (10:08→21:41)
[2016-08-22] MEDS: FUROSEMIDE 40 MG TABLET PO SCH (10:08)
[2016-08-22] MEDS: LISINOPRIL 5 MG TABLET PO SCH (10:09)
[2016-08-22] MEDS: RIVASTIGMINE 9.5 MG/24 HR PATCH.TD24 TD SCH (10:09)
[2016-08-22] MEDS: ASPIRIN 81 MG TABLET, ENT COATED PO SCH (10:09)
[2016-08-22] MEDS: FAMOTIDINE INJ/PF 20 MG/2 ML SDV IV SCH (10:10)
[2016-08-22] MEDS: BUDESONIDE/FORMOTEROL 80-4.5 MCG 60 PUFF/6.9 GM MDI IH SCH ×2 (10:11→21:41)
[2016-08-22] MEDS: ENOXAPARIN SODIUM INJ 30 MG/0.3 ML DISP.SYRIN SUBCUT SCH (10:11)
[2016-08-22] MEDS ORDERED: ALBUTEROL SULFATE HFA (90 MCG/PUFF) 200 PUFF/8.5 GM MDI IH PRN (10:16)
[2016-08-22] MEDS: FAMOTIDINE 20 MG TABLET PO SCH ×2 (11:29→21:41)
[2016-08-22] MEDS: LEVOFLOXACIN 500 MG TABLET PO SCH (18:00)
--- NOTE | 2016-08-22 19:32 | PDOC TRANSFER SUMMARY ---
General - Admit/Disc Date/PCP Admission Date/Primary Care Provider: 08/17/16 15:59 GAVI FARLEY MD Discharge Date: 08/23/16 - Discharge Diagnosis (1) Pneumonia Is this a current diagnosis for this admission?: Yes (2) Dementia in Parkinson's disease Is this a current diagnosis for this admission?: Yes (3) Swelling of right hand Is this a current diagnosis for this admission?: Yes (4) Dementia in Parkinson's disease Is this a current diagnosis for this admission?: Yes - Additional Information Resuscitation Status: checking on Code status Home Medications: Acetaminophen [Tylenol 325 mg Tablet] 650 mg PO Q6HP PRN 08/17/16 Albuterol Sulfate [Ventolin HFA MDI 18 GM] 1 puff IH Q4HP PRN 08/17/16 Aspirin [Aspirin EC] 81 mg PO DAILY 08/17/16 Atenolol [Tenormin 50 mg Tablet] 50 mg PO Q12 08/17/16 Budesonide/Formoterol Fumarate [Symbicort HFA 80-4.5 mcg Inhaler 6.9 gm] 2 puff IH Q12 08/17/16 Bupropion HCl [Wellbutrin 75 mg Tablet] 75 mg PO DAILY 08/17/16 Carbidopa/Levodopa [Sinemet 25-100 mg Tablet] 1.5 tab PO QID 08/17/16 Divalproex Sodium [Depakote] 125 mg PO QHS 08/17/16 Furosemide [Lasix] 40 mg PO DAILY 08/17/16 Lisinopril [Prinivil 5 mg Tablet] 5 mg PO DAILY 08/17/16 Lorazepam [Ativan 0.5 mg Tablet] 0.5 mg PO Q6HP PRN 08/17/16 Melatonin 3 mg PO QHS 08/17/16 Quetiapine Fumarate [Seroquel] 50 mg PO DAILY 08/17/16 Quetiapine Fumarate [Seroquel] 75 mg PO QHS 08/17/16 Rivastigmine [Exelon 9.5 mg/24 Hr Transdermal Patch] 1 each TD DAILY 08/17/16 History of Present Illness Admission Date/PCP: 08/17/16 15:59 GAVI FARLEY MD History of Present Illness: ESTHER VILLALTA is a 76 year old male, he has Parkinson disease with dementia he was admitted because of pneumonia Hospital Course Hospital Course: He was treated with IV antibiotic, he was seen by speech.Puree Diet was recommended there was swelling of the right hand .CT scan hand was done and it was negative for fracture patient advanced dementia communication was a challenge. [facility] Physical Exam Vital Signs: Temp Pulse Resp BP Pulse Ox 98.0 F 70 19 102/59 L 96 08/22/16 16:11 08/22/16 16:11 08/22/16 16:11 08/22/16 16:11 08/22/16 16:11 Intake & Output 08/21/16 08/22/16 08/23/16 06:59 06:59 06:59 Intake Total 2472 3784 480 Output Total 300 Balance 2172 3784 480 Weight 72 kg 72.2 kg General appearance: PRESENT: no acute distress Eye exam: PRESENT: PERRLA Respiratory exam: PRESENT: clear to auscultation kalen Cardiovascular exam: PRESENT: +S1, +S2 GI/Abdominal exam: PRESENT: soft Neurological exam: PRESENT: alert Results Laboratory Results: 08/20/16 04:45 08/20/16 04:45 08/17/16 08/17/16 08/17/16 16:50 16:50 23:33 Creatine Kinase 771 H 739 H CK-MB (CK-2) 5.95 H Troponin I 0.045 NT-Pro-B Natriuret Pep 08/17/16 08/18/16 08/18/16 23:33 05:49 05:49 Creatine Kinase 620 H CK-MB (CK-2) 5.71 H 3.70 Troponin I 0.067 0.083 NT-Pro-B Natriuret Pep 2750 H Impressions: Chest X-Ray 08/17/16 11:54 IMPRESSION: Right middle lobe or lower lobe pneumonia. Head CT 08/17/16 11:54 IMPRESSION: MILD CHRONIC CHANGES OF ATROPHY AND MICROVASCULAR ISCHEMIA. NO ACUTE PROCESS. Upper Extremity CT 08/18/16 00:00 IMPRESSION: Suboptimal patient positioning. No definite CT evidence for acute fracture. The 5th digit is flexed at the PIP and DIP joints, please correlate with clinical exam to exclude acute subluxations. If clinical concern persists , MRI can be obtained for further evaluation.
[2016-08-22] MEDS: DIVALPROEX SODIUM 125 MG CAP.SPRINK PO SCH (21:41)
[2016-08-23] MEDS: IPRATROPIUM/ALBUTEROL 0.5-2.5 MG/3 ML AMPUL NEB SCH ×3 (01:33→14:19)
[2016-08-23] MEDS: NORMAL SALINE 1000 ML 1,000 ML IV PRN (06:01)
[2016-08-23] MEDS: ENOXAPARIN SODIUM INJ 30 MG/0.3 ML DISP.SYRIN SUBCUT SCH (10:39)
[2016-08-23] MEDS: CARBIDOPA/LEVODOPA 25-100 MG TABLET PO SCH ×3 (10:49→17:15)
[2016-08-23] MEDS: ATENOLOL 50 MG TABLET PO SCH (10:49)
[2016-08-23] MEDS: ASPIRIN 81 MG TABLET, ENT COATED PO SCH (10:49)
[2016-08-23] MEDS: BUPROPION HCL 75 MG TABLET PO SCH (10:49)
[2016-08-23] MEDS: FUROSEMIDE 40 MG TABLET PO SCH (10:50)
[2016-08-23] MEDS: RIVASTIGMINE 9.5 MG/24 HR PATCH.TD24 TD SCH (10:50)
[2016-08-23] MEDS: BUDESONIDE/FORMOTEROL 80-4.5 MCG 60 PUFF/6.9 GM MDI IH SCH (10:50)
[2016-08-23] MEDS: LISINOPRIL 5 MG TABLET PO SCH (10:50)
[2016-08-23] MEDS: QUETIAPINE FUMARATE 25 MG TABLET PO SCH (10:50)
[2016-08-23] MEDS: FAMOTIDINE 20 MG TABLET PO SCH (10:50)
[2016-08-23] MEDS: LEVOFLOXACIN 500 MG TABLET PO SCH (17:15)
[2016-08-23 17:39] VITALS: BP 106/58
== END 2016-08-23 18:15 | disposition home health service (06) | DRG 179 ==
LOC: ER 11:53 → EH 15:59 → UNDOADMIN 16:22 → EH 16:22 → 3W 17:43
PROVIDERS: ADMIT Internal Medicine; ATTEND Internal Medicine
DX: J69.0 Pneumonitis due to inhalation of food and vomit (principal); G20 Parkinson's disease; F02.80 Dementia in other diseases classified elsewhere, unspecified severity, without behavioral disturbance, psychotic disturbance, mood disturbance, and anxiety; M79.89 Other specified soft tissue disorders; I48.91 Unspecified atrial fibrillation; R13.10 Dysphagia, unspecified; S00.93XD Contusion of unspecified part of head, subsequent encounter; I12.9 Hypertensive chronic kidney disease with stage 1 through stage 4 chronic kidney disease, or unspecified chronic kidney disease; N18.9 Chronic kidney disease, unspecified; Z79.82 Long term (current) use of aspirin; Z79.899 Other long term (current) drug therapy
CPT/HCPCS: 36415; 70450; 71010; 80048; 80053; 80164; 81001; 82550; 82553; 83735; 83880; 84484; 85025; 85610; 85730; 87040; 87086; 93005; 93010; 94640; 96361; 96365; 99291; G8996-GN; G8997-GN; J0692; J1630; J1650; J1956; J3490; J7030; J7620; S0028

== ENCOUNTER 2016-08-28 23:19 | Inpatient (IN) | payer MEDICARE, OTHER ==
--- NOTE | 2016-08-28 23:37 | ER Document Report ---
ED General - General Stated Complaint: ALTERED MENTAL STATUS Time Seen by Provider: 08/28/16 23:23 Notes: It is a 76-year-old male who presents with complaint of becoming poorly responsive. [facility] assisted. They will try move him from a chair to a wheelchair and his legs are giving out. He then became poorly responsive. They laid him on the ground. They do not have cardiac monitors at the facility and therefore they felt his pulse and felt that his heart rate was in the 30s. Also says his blood pressure was apparently hard to obtain and he felt he was hypotensive. Paramedics arrived he was turned to wake up more. His heart rate is in the 50s on the paramedics monitor and his blood pressure has been normal since they picked him up. He was recently discharged from the hospital for pneumonia. He does have a history of severe dementia. At baseline he will mumble some things but they do not make sense. Currently he is alert, but will not talk to me. TRAVEL OUTSIDE OF THE [place] IN LAST 30 DAYS: No - Related Data Allergies/Adverse Reactions: hydrochlorothiazide [Hydrochlorothiazide] Allergy (Intermediate, Verified 13:38) Rash Past Medical History - Social History Smoking Status: Never Smoker Frequency of alcohol use: None Drug Abuse: None Family History: COPD, Hyperlipidemia, Hypertension - Past Medical History Cardiac Medical History: Reports: Hx Hypertension, Hx Pulmonary Embolism Denies: Hx Coronary Artery Disease, Hx Heart Attack, Hx Hypercholesterolemia Pulmonary Medical History: Reports: Hx Asthma - Has occasional SOB/wheezing( uses Albuterol inhaler, Hx COPD Denies: Hx Bronchitis Neurological Medical History: Denies: Hx Seizures Endocrine Medical History: Denies: Hx Diabetes Mellitus Type 1, Hx Diabetes Mellitus Type 2, Hx Hyperthyroidism, Hx Hypothyroidism Renal/ Medical History: Reports: Hx Renal Insufficiency. Denies: Hx Peritoneal Dialysis GI Medical History: Denies: Hx Cirrhosis, Hx Gastroesophageal Reflux Disease, Hx Hepatitis Musculoskeltal Medical History: Denies Hx Arthritis Skin Medical History: Denies Hx Eczema, Denies Hx Psoriasis Psychiatric Medical History: Reports: Hx Dementia Denies: Hx Depression Infectious Medical History: Reports: Hx C-Diff, Hx MRSA. Denies: Hx Hepatitis Past Surgical History: Reports: Hx Herniorrhaphy. Denies: Hx Pacemaker - Immunizations Hx Diphtheria, Pertussis, Tetanus Vaccination: Yes Hx Pneumococcal Vaccination: 12/22/08 Review of Systems - Review of Systems -: Yes ROS unobtainable due to patient's medical condition - Patient is nonverbal Physical Exam - Vital signs Vitals: Temp Pulse Resp BP Pulse Ox 97.4 F 58 L 16 113/52 L 97 08/28/16 23:22 08/28/16 23:22 08/28/16 23:22 08/28/16 23:22 08/28/16 23:22 - Notes Notes: General Appearance: Well nourished, alert, cooperative, no acute distress, no obvious discomfort. Vitals: reviewed, See vital signs table. Head: no swelling or tenderness to the head Eyes: PERRL, EOMI, Conjuctiva clear Mouth: No decreasd moisture Neck: Supple, no neck tenderness, No thyromegaly Lungs: No wheezing, No rales, No rhonci, No accessory muscle use, good air exchange bilaterally. Heart: Normal rate, Regular rythm, No murmur, no rub Abdomen: Normal BS, soft, No rigidity, No abdominal tenderness, No guarding, no rebound, no abdominal masses, no organomegaly Extremities: strength 5/5 in all extremities, good pulses in all extremities, no swelling or tenderness in the extremities, no edema. Skin: warm, dry, appropriate color, no rash Neuro: Awake and alert. eyes are open. Patient keeps his arms contracted against his chest. He does move his legs slightly. He will roll some in the bed. He does not currently follow commands. He will moan some. Course - Vital Signs Vital signs: Temp Pulse Resp BP Pulse Ox 97.4 F 63 22 H 102/69 100 08/28/16 23:56 08/28/16 23:56 08/28/16 23:56 08/29/16 00:02 08/29/16 00:02 - Laboratory Result Diagrams: 08/29/16 00:05 08/29/16 00:05 Laboratory results interpreted by me: 08/29/16 08/29/16 08/29/16 00:05 00:05 00:05 RBC 3.27 L Hgb 11.3 L Hct 33.9 L MCV 104 H MCH 34.4 H Seg Neutrophils % 80.3 H Lymphocytes % 10.2 L BUN 57 H Creatinine 2.74 H Est GFR ( Amer) 28 L Est GFR (Non-Af Amer) 23 L Magnesium 2.4 H Creatine Kinase 469 H CK-MB (CK-2) 8.43 H - EKG Interpretation by Me Additional EKG results interpreted by me: 08/29/16 00:59 EKG is reviewed and interpreted by me. EKG shows what is most likely sinus rhythm with rate of 63 bpm. The EKG has a lot of artifact making it difficult to determine if he actually has P waves or not. Rhythm is regular. QRS duration is slightly prolonged. QTc interval is prolonged. - Transfer of Care Notes: 08/29/16 02:18 Patient's has gradually improved his mental status since he has been here. He is now starting to talk a little bit. The story from assisted is concerning that she did become bradycardic. Apparently his heart rate was in the 30s. His heart rate has improved and has been normal now here. Initially he was in the 50s but now his heart rate is up into the 60s. Morrison appropriate to to a telemetry observation admit to make sure that he does not go back to have a bradycardic arrhythmia to make sure his blood pressure will. I did speak with Dr. Ann, patient's primary care physician, who agrees with plan. Dictation of this chart was performed using voice recognition software; therefore, there may be some unintended grammatical errors. Discharge - Discharge Clinical Impression: Bradycardia Altered mental status Qualifiers: Altered mental status type: unspecified Qualified Code(s): R41.82 - Altered mental status, unspecified Condition: Stable Disposition: ADMITTED OBSERVATION Admitting Provider: Marissa Unit Admitted: Telemetry
[2016-08-29 00:21] LABS: ABSOLUTE EOSINOPHILS # (AUTO) 0.1 10^3/uL (0.0-0.6); ABSOLUTE LYMPHOCYTES (AUTO) 0.7 10^3/uL (0.5-4.7); ABSOLUTE MONOCYTES (AUTO) 0.6 10^3/uL (0.1-1.4); ABSOLUTE NEUT (AUTO) 5.6 10^3/uL (1.7-8.2); BASOPHILS % (AUTO) 0.4 % (0-2); EOSINOPHILS % (AUTO) 1.1 % (0-6); HEMATOCRIT 33.9 % (37.9-51.0); HEMOGLOBIN 11.3 g/dL (13.5-17.0); LYMPHOCYTES % (AUTO) 10.2 % (13-45); MEAN CORPUSCULAR HEMOGLOBIN 34.4 pg (27.0-33.4); MEAN CORPUSCULAR HGB CONC 33.2 g/dL (32.0-36.0); MEAN CORPUSCULAR VOLUME 104 fl (80-97); RED BLOOD COUNT 3.27 10^6/uL (4.35-5.55); RED CELL DISTRIBUTION WIDTH 12.3 % (11.5-14.0); SEGMENTED NEUTROPHILS % (AUTO) 80.3 % (42-78)
[2016-08-29 00:51] LABS: ALANINE AMINOTRANSFERASE 28 U/L (21-72); ALBUMIN 3.7 g/dL (3.5-5.0); ALKALINE PHOSPHATASE 96 U/L (38-126); ANION GAP 12 (5-19); ASPARTATE AMINO TRANSFERASE 53 U/L (17-59); BILIRUBIN,TOTAL 0.8 mg/dL (0.2-1.3); BLOOD UREA NITROGEN 57 mg/dL (7-20); CARBON DIOXIDE 25 mmol/L (22-30); CHLORIDE 100 mmol/L (98-107); CREATININE RESULT 2.74 mg/dL (0.52-1.25); GLUCOSE 104 mg/dL (75-110); POTASSIUM 4.8 mmol/L (3.6-5.0); SODIUM 137.3 mmol/L (137-145)
[2016-08-29 00:52] LABS: BILIRUBIN,DIRECT 0.4 mg/dL (0.0-0.4); CREATINE KINASE 469 U/L (55-170); MAGNESIUM 2.4 mg/dL (1.6-2.3); TOTAL PROTEIN 6.8 g/dL (6.3-8.2)
--- NOTE | 2016-08-29 01:01 | RADIOLOGY REPORT (SQ) ---
EXAM DESCRIPTION: CT HEAD WITHOUT COMPLETED DATE/TIME: 08/29/2016 12:52 am REASON FOR STUDY: altered mental status COMPARISON: 08/17/2016 TECHNIQUE: Axial images acquired through the brain without intravenous contrast. Images reviewed wi th bone, brain and subdural windows. Images stored on PACS. All CT scanners at this facility use dose modulation, iterative reconstruction, and/or weight based d osing when appropriate to reduce radiation dose to as low as reasonably achievable (ALARA). [facility]: Dose Right [facility]: CareDose [facility]: Dose Right [facility]: Teradose 4D [facility]: Gingerd RADIATION DOSE: 1,397. LIMITATIONS: None. FINDINGS: VENTRICLES: Normal size and contour. CEREBRUM: No masses. No hemorrhage. No midline shift. Normal jo/white matter differentiation. N o evidence for acute infarction. Mild cerebral volume loss. Mild white matter microangiopathy patte rn. CEREBELLUM: No masses. No hemorrhage. No alteration of density. No evidence for acute infarction. EXTRAAXIAL SPACES: No fluid collections. No masses. ORBITS AND GLOBE: No intra- or extraconal masses. Normal contour of globe without masses. CALVARIUM: No fracture. PARANASAL SINUSES: No fluid or mucosal thickening. SOFT TISSUES: No mass or hematoma. OTHER: No other significant finding. IMPRESSION: No acute findings. TECHNICAL DOCUMENTATION: JOB ID: [id number] Quality ID # [id number]: Final reports with documentation of one or more dose reduction techniques (e.g., Au tomated exposure control, adjustment of the mA and/or kV according to patient size, use of iterative reconstruction technique) 2010 [employer]- All Rights Reserved
[2016-08-29 01:05] LABS: CREATINE KINASE MB 8.43 ng/mL (<4.55)
[2016-08-29 01:09] LABS: TROPONIN I 0.034 ng/mL
--- NOTE | 2016-08-29 02:18 | RADIOLOGY REPORT (SQ) ---
EXAM DESCRIPTION: CHEST SINGLE VIEW COMPLETED DATE/TIME: 08/29/2016 2:04 am REASON FOR STUDY: altered mental status COMPARISON: 08/08/2016. 08/17/2016. CT, 02/28/2016. EXAM PARAMETERS: NUMBER OF VIEWS: One view. TECHNIQUE: Single frontal radiographic view of the chest acquired. RADIATION DOSE: NA LIMITATIONS: As below. FINDINGS: LUNGS AND PLEURA: No opacities, masses or pneumothorax. No pleural effusion. Likely skin fold artifact of the right lower hemithorax decreases sensitivity -specificity. Moderate centrilobul ar emphysema. Obscured left lung apex due to chin artifact. MEDIASTINUM AND HILAR STRUCTURES: No masses. Contour normal. HEART AND VASCULAR STRUCTURES: Heart normal in size. Normal vasculature. BONES: No acute findings. HARDWARE: None in the chest. OTHER: No other significant finding. IMPRESSION: No acute cardiopulmonary findings. Limitation. TECHNICAL DOCUMENTATION: JOB ID: [id number]
[2016-08-29 03:37] LABS: APPEARANCE,URINE SLIGHTLY-CLOUDY; BILIRUBIN,URINE NEGATIVE (NEGATIVE); GLUCOSE, URINE NEGATIVE (NEGATIVE); KETONES,URINE TRACE mg/dL (NEGATIVE); LEUKOCYTE ESTERASE,URINE NEGATIVE (NEGATIVE); NITRITE,URINE NEGATIVE (NEGATIVE); PROTEIN,URINE NEGATIVE (NEGATIVE); URINE SPECIFIC GRAVITY 1.012; UROBILINOGEN,URINE NEGATIVE mg/dL (<2.0)
--- NOTE | 2016-08-29 09:46 | EKG REPORT ---
SEVERITY:- ABNORMAL ECG - SINUS RHYTHM BASE LINE ARTIFACTS : Confirmed by: Saqib Gipson 29-Aug-2016 09:46:09
--- NOTE | 2016-08-29 11:10 | Physician Advisory Note ---
Physician Advisor ProgressNote .: Pursuant to the plan for [facility], I have reviewed the medical record for this patient. Physician Advisor Statement: Cr 2.74 Last ECHO = 02/2106 = EF 45-50%, borderline conc LVH, grade 1 diastolic dysfunction, severe pulmonary HTN. Possible documentation opportunities if attending agrees: 1. "Acute Kidney Injury/ARF, baseline Cr 1.2s-1.3s, likely due to " - & state what you are doing about this 2. ? - "Adverse effect of lisinopril & Lasix causing MIKI" 3. ? - "Adverse effect of atenolol causing bradycardia" 4. ? 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 Medical Necessity: If pt Cr not back to near baseline with tx, or remaining too bradycardic, or mental status not yet back to baseline, etc., please document these issues & why you are concerned that this patient not safe for d/c after 1MN of hospital care. Pt may become appropriate for change to Inpt status, especially if needing IVF with monitoring given chronic CHF as above. As always, if concerned about any unstable VS or abnormal labs, please comment on them - what bad things they might indicate, why they concern you - & note what doing about them. Please also document each day the potential clinical problems you are concerned could occur if pt not kept in hospital for tx at this time. (These points are aguilar - if present in each note, attending's status decision should be sufficiently supported.) Discussion: 76yo male w/ chronic co-morbidities including severe dementia (usually mumbles nonsensically), HTN, PE, asthma/COPD - usually on lisinopril, lasix, atenolol, & high doses of Seroquel - with evidence of chronic systolic & diastolic dysfunction, severe pulmonary HTN by ECHO Feb 2016 - presented 08/28 to ED w/ (+) HR 58 in ED, RR16, BP 113/52. WBC 7.0, Hgb 11.3, BUN 57, Cr 2.74. Attending ordered tele monitoring, sitter, specialty bed. He held lisinopril, Lasix, Atenolol, & Seroquel. Status: Appropriate to bring in AMS/bradycardia pt, with MIKI & likely Rx adverse effects, as Outpt Obs to start. BP dropped as low as 93/55 overnight. This AM, BP 142/78, HR 60s, RR16-21, with BP meds still on hold. Tx & monitoring in inpatient hospital setting medically reasonable & necessary to protect pt's health, safety, & medical condition? See above. Thanks for your help with documentation accuracy/specificity improvement! Nicki Smith MD [facility] Physician Advisor, Fellow of Hospital Medicine
[2016-08-29] MEDS: NORMAL SALINE 1000 ML 1,000 ML IV PRN (15:05)
[2016-08-29] MEDS ORDERED: ALBUTEROL SULFATE HFA (90 MCG/PUFF) 8 GM MDI (1 MDI/ER DISP) IH PRN (16:45)
[2016-08-29] MEDS ORDERED: LORAZEPAM 1 MG TABLET ONE (16:45)
[2016-08-29] MEDS ORDERED: ACETAMINOPHEN 325 MG TABLET PO PRN (16:45)
[2016-08-29] MEDS: ALBUTEROL SULFATE HFA (90 MCG/PUFF) 200 PUFF/8.5 GM MDI IH PRN (19:30)
--- NOTE | 2016-08-29 19:57 | PDOC H&P ---
History of Present Illness Admission Date/PCP: 08/29/16 04:27 RADHA ANDREA History of Present Illness: ESTHER VILLALTA is a 76 year old male,he has a history of dementia and parkinson 's disease . He was discharged from this hospital on 08/17/2016 he was transferred back from the long term to the Emergency room because of agitation and confusion and he was poorly responsive. No history could be obtained from the patient is very advanced dementia, I reviewed the records from the emergency room. The record stated that patient was trying to get out of the wheelchair and his legs was very weak and shaky. He was found to have bradycardia in the emergency room that was also elevated serum creatinine of 2 the last time he was discharged the serum creatinine was 1.1 by, this is most likely prerenal acute kidney injury rather than intrinsic kidney disease.. When I saw the patient in the hospital on the medical floor, on auscultation of the chest that was audible wheeze in both lung jaramillo. CT chest was done without contrast, demonstrated multiple small 2 mm nodules in the posterior and lateral basilar segments of the left lower lobe which was new since the previous study, there is no pneumothorax there is no consolidation or pleural effusions. Diagnosis included embolization because of the possibility of embolization if VQ scan was normal. VQ scan showed markedly heterogeneous distribution of the DPTA aeroso during ventilatory phase. multiple subsegmental areas of decreased ventilation. There was no ventilation perfusion mismatch, the VQ scan is consistent with a low probability for pulmonary embolism. Echo on 02/29/2016 demonstrated ejection fraction of the left ventricle was 45-50%, the echocardiogram also demonstrated severe pulmonary hypertension. Past Medical History Cardiac Medical History: Reports: Hypertension, Pulmonary Embolism Pulmonary Medical History: Reports: Asthma, Chronic Obstructive Pulmonary Disease (COPD), Other - pulmonary hypertension Psychiatric Medical History: Reports: Dementia Infectious Medical History: Reports: Clostridium Difficile, Methicillin- Resistant Staph Aureus Past Surgical History Past Surgical History: Reports: Herniorrhaphy Denies: Pacemaker Social History Smoking Status: Never Smoker Frequency of Alcohol Use: None Hx Recreational Drug Use: No Drugs: None Hx Prescription Drug Abuse: No - Advance Directive Resuscitation Status: Do Not Resuscitate Family History Family History: COPD, Hyperlipidemia, Hypertension Parental Family History Reviewed: Yes Children Family History Reviewed: Yes Sibling(s) Family History Reviewed.: Yes Medication/Allergy Home Medications: Acetaminophen [Tylenol 325 mg Tablet] 650 mg PO Q6HP PRN 08/29/16 Albuterol Sulfate [Ventolin HFA MDI 18 GM] 1 puff IH Q4HP PRN 08/29/16 Aspirin [Aspirin EC] 81 mg PO DAILY 08/29/16 Atenolol [Tenormin 50 mg Tablet] 50 mg PO Q12 08/29/16 Budesonide/Formoterol Fumarate [Symbicort Hfa 80-4.5 Mcg Inhaler 6.9 gm] 2 puff IH Q12 08/29/16 Bupropion HCl [Wellbutrin 75 Mg Tablet] 75 mg PO DAILY 08/29/16 Carbidopa/Levodopa [Sinemet 25-100 mg Tablet] 1.5 each PO QID 08/29/16 Divalproex Sodium [Depakote] 125 mg PO QHS 08/29/16 Furosemide [Lasix] 40 mg PO DAILY 08/29/16 Lisinopril [Prinivil 5 mg Tablet] 5 mg PO DAILY 08/29/16 Lorazepam [Ativan 0.5 mg Tablet] 0.5 mg PO Q6HP PRN 08/29/16 Melatonin [Melatin] 3 mg PO QHS 08/29/16 Quetiapine Fumarate [Seroquel] 50 mg PO DAILY 08/29/16 Quetiapine Fumarate [Seroquel] 75 mg PO QHS 08/29/16 Rivastigmine [Exelon 9.5 Mg/24 Hr Transdermal Patch] 1 each TD DAILY 08/29/16 Allergies/Adverse Reactions: hydrochlorothiazide [Hydrochlorothiazide] Allergy (Intermediate, Verified 13:38) Rash Review of Systems ROS unobtainable: Due to mental status Physical Exam Vital Signs: Temp Pulse Resp BP Pulse Ox 98.0 F 70 21 H 125/65 84 L 08/29/16 15:55 08/29/16 15:55 08/29/16 15:55 08/29/16 15:55 08/29/16 15:55 Intake & Output 08/28/16 08/29/16 08/30/16 06:59 06:59 06:59 Intake Total 0 460 Output Total 400 Balance 0 60 Weight 67.9 kg General appearance: PRESENT: mild distress Eye exam: PRESENT: PERRLA Respiratory exam: PRESENT: wheezes Cardiovascular exam: PRESENT: +S1, +S2 GI/Abdominal exam: PRESENT: soft Neurological exam: PRESENT: alert Results Impressions: Chest X-Ray 08/28/16 23:32 IMPRESSION: No acute cardiopulmonary findings. Limitation. Head CT 08/28/16 23:33 IMPRESSION: No acute findings. Assessment & Plan - Diagnosis (1) Aspiration pneumonia Qualifiers: Aspiration pneumonia type: unspecified Laterality: right Lung location: lower lobe of lung Qualified Code(s): J69.0 - Pneumonitis due to inhalation of food and vomit Is this a current diagnosis for this admission?: YesPlan: This is probably aspiration pneumonia, there is multiple nodules in the right lower lobe ,was not present the last time CT scan was done. There is no consolidation or pleural effusion. It is reasonable to treat for aspiration pneumonia with IV antibiotic (2) Parkinson disease Is this a current diagnosis for this admission?: Yes (3) Acute kidney injury Is this a current diagnosis for this admission?: YesPlan: This is probably prerenal acute kidney injury,
[2016-08-29] MEDS: CARBIDOPA/LEVODOPA 25-100 MG TABLET PO SCH ×2 (21:10→22:47)
[2016-08-29] MEDS ORDERED: IPRATROPIUM/ALBUTEROL 0.5-2.5 MG/3 ML AMPUL NEB ONE (21:30)
[2016-08-29] MEDS ORDERED: (PENDING PHARMACY ID) (Divalproex Sodium [Depakote] 125 MG) PO SCH (22:00)
[2016-08-29] MEDS ORDERED: (PENDING PHARMACY ID) (Melatonin [Melatin] 3 MG) PO SCH (22:00)
--- NOTE | 2016-08-29 22:04 | RADIOLOGY REPORT (SQ) ---
EXAM DESCRIPTION: CT CHEST WITHOUT COMPLETED DATE/TIME: 08/29/2016 8:55 pm REASON FOR STUDY: shortness of breath D14.32 BENIGN NEOPLASM OF LEFT BRONCHUS AND LUNG COMPARISON: 02/28/2016 TECHNIQUE: CT scan performed of the chest without intravenous contrast. Images reviewed with lung, soft tissue and bone windows. Reconstructed coronal and sagittal MPR images reviewed. All images st ored on PACS. All CT scanners at this facility use dose modulation, iterative reconstruction, and/or weight based d osing when appropriate to reduce radiation dose to as low as reasonably achievable (ALARA). [facility]: Dose Right [facility]: CareDose [facility]: Dose Right [facility]: Teradose 4D [facility]: Idomoo RADIATION DOSE: 11.48 mGy. LIMITATIONS: No technical limitations. FINDINGS: LUNGS AND PLEURA: Multiple 4 to 6 mm nodules in the posterior and lateral basilar segment s of the right lower lobe, new since the previous study. No pneumothorax. No consolidation or pleur al effusions. HILAR AND MEDIASTINAL STRUCTURES: No identified masses or abnormal nodes. No obvious aneurysm. HEART AND VASCULAR STRUCTURES: No aneurysm. No pericardial effusion. UPPER ABDOMEN: No significant findings. Limited exam. THYROID AND OTHER SOFT TISSUES: No masses. No adenopathy. BONES: No significant finding. HARDWARE: None in the chest. OTHER: No other significant findings. IMPRESSION: Multiple 4 to 6 mm nodules in the posterior and lateral basilar segments of the right lo wer lobe, new since the previous study, possibly parenchymal scarring from prior infarct- emboli. No pneumothorax. No consolidation or pleural effusions. TECHNICAL DOCUMENTATION: JOB ID: [id number] Quality ID # [id number]: Final reports with documentation of one or more dose reduction techniques (e.g., Au tomated exposure control, adjustment of the mA and/or kV according to patient size, use of iterative reconstruction technique) 2010 [employer]- All Rights Reserved
[2016-08-29] MEDS: ATENOLOL 50 MG TABLET PO SCH (22:37)
[2016-08-29] MEDS: BUDESONIDE/FORMOTEROL 80-4.5 MCG 60 PUFF/6.9 GM MDI IH SCH (22:38)
[2016-08-29] MEDS: LORAZEPAM 0.5 MG TABLET PO PRN (22:39)
[2016-08-29] MEDS: QUETIAPINE FUMARATE 25 MG TABLET PO SCH (22:46)
[2016-08-29] MEDS: DIVALPROEX SODIUM 125 MG CAP.SPRINK PO SCH (22:48)
[2016-08-30] MEDS: IPRATROPIUM/ALBUTEROL 0.5-2.5 MG/3 ML AMPUL NEB SCH ×6 (00:50→19:55)
[2016-08-30] MEDS: NORMAL SALINE 1000 ML 1,000 ML IV PRN (04:13)
--- NOTE | 2016-08-30 08:39 | Physician Advisory Note ---
Physician Advisor ProgressNote .: [facility], I have reviewed the medical record for this patient. Physician Advisor Statement: Possible documentation opportunities if attending agrees: 1. "Acute Kidney Injury w/Cr 2.74 (baseline Cr 1.2s-1.3s), likely due to " [Adverse effect of lisinopril & Lasix?] 2. Medical Necessity: If pt's Cr (or BP, HR, or mental status or other significant clinical issue) is not back to baseline today after 1 night of IVF, please document these issues & why you are concerned that this patient is not safe for d/c today. With such documentation, pt should be appropriate for change to Inpt status today, especially if documented to be needing close monitoring w/the IVF given chronic CHF (as below). - However, if attending, who is seeing pt clnically, is not particularly concerned about pt's current findings, feels no additional labs or monitoring needed, & pt felt safe for d/c today from clinical standpoint - then appropriate to leave as Outpt Obs status & d/c. - "I am concerned about ." - Are you concerned about the BPs & HRs dropping again, or continued MIKI, or ...? Please make this explicit. ( Whenever an attending documents "I am concerned" about something, that carries a lot of weight with reviewers!) 3. 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 ? - "Adverse effect of atenolol causing bradycardia" Status: [A bit more difficult to determine, as H&P still needs PE & Imp/Plan data included.] Appropriate to bring in as Outpt Obs to start. BP dropped as low as 93/55 the first night. Then, with BP meds held, systolic BP came up to 120s systolic & max 142. IVF were started due to MIKI, and BP/CHF meds were restarted. Subsequently, BP has dropped to 100s again despite ongoing IVF. HR has dropped from 60s-70s to 59 this AM. If attending documents his ongoing concerns, & the need for close monitoring with IVF administration due to pt's underlying chronic systolic/diast CHF increasing risk for developing acute CHF, pt not able to be safely d/c'd today, then pt is appropriate for change to Inpt status today. Thanks for your help with documentation accuracy/specificity improvement! Nicki Smith MD [facility] Physician Advisor, Fellow of Hospital Medicine
[2016-08-30] MEDS ORDERED: (PENDING PHARMACY ID) (Quetiapine Fumarate [Seroquel] 50 MG) PO SCH (10:00)
[2016-08-30] MEDS ORDERED: FUROSEMIDE 40 MG TABLET PO SCH (10:00)
--- NOTE | 2016-08-30 10:42 | RADIOLOGY REPORT (SQ) ---
EXAM DESCRIPTION: NM LUNG VENT/PERF SCAN COMPLETED DATE/TIME: 08/30/2016 10:25 am REASON FOR STUDY: pulmonary embolism D14.32 BENIGN NEOPLASM OF LEFT BRONCHUS AND LUNG COMPARISON: None. RADIONUCLIDE AND DOSE: 5.49 millicuries TC-99m MAA Intravenous 32.8 millicuries TC-99m DTPA Inhaled aerosol TECHNIQUE: Eight views of the lungs acquired post ventilation of DTPA aerosol. Eight matching views of the lungs acquired following injection of MAA. LIMITATIONS: None. FINDINGS: VENTILATION: Markedly heterogenous distribution of DTPA aerosol during ventilatory phase. Multiple subsegmental areas of decreased ventilation. PERFUSION: Perfusion images with heterogenous activity. Subsegmental perfusion defects with correspo nding matching ventilation defects. No ventilation-perfusion mismatch. OTHER: No other significant finding. IMPRESSION: MARKEDLY HETEROGENOUS DISTRIBUTION ON VENTILATION IMAGING CONSISTENT WITH UNDERLYING MARIUM G DISEASE. CORRESPONDING SUBSEGMENTAL MATCHING PERFUSION DEFECTS. NO VENTILATION-PERFUSION MISMATCH . LOW PROBABILITY OF PULMONARY EMBOLISM. TECHNICAL DOCUMENTATION: JOB ID: [id number] [employer]- All Rights Reserved
[2016-08-30] MEDS: RIVASTIGMINE 9.5 MG/24 HR PATCH.TD24 TD SCH (10:43)
[2016-08-30] MEDS: QUETIAPINE FUMARATE 25 MG TABLET PO SCH ×2 (10:44→21:34)
[2016-08-30] MEDS: BUPROPION HCL 75 MG TABLET PO SCH (10:44)
[2016-08-30] MEDS: LISINOPRIL 5 MG TABLET PO SCH (10:44)
[2016-08-30] MEDS: ATENOLOL 50 MG TABLET PO SCH ×2 (10:44→21:37)
[2016-08-30] MEDS: BUDESONIDE/FORMOTEROL 80-4.5 MCG 60 PUFF/6.9 GM MDI IH SCH ×2 (10:45→21:42)
[2016-08-30] MEDS: CARBIDOPA/LEVODOPA 25-100 MG TABLET PO SCH ×4 (10:45→21:33)
[2016-08-30] MEDS: ASPIRIN 81 MG TABLET, ENT COATED PO SCH (10:45)
[2016-08-30 11:42] LABS: ANION GAP 9 (5-19); BLOOD UREA NITROGEN 31 mg/dL (7-20); CALCIUM 8.4 mg/dL (8.4-10.2); CARBON DIOXIDE 29 mmol/L (22-30); CHLORIDE 102 mmol/L (98-107); CREATININE RESULT 1.08 mg/dL (0.52-1.25); GLUCOSE 76 mg/dL (75-110); POTASSIUM 4.3 mmol/L (3.6-5.0); SODIUM 139.7 mmol/L (137-145)
[2016-08-30] MEDS: PIPERACILLIN SODIUM/TAZOBACTAM 3.375 GM in NORMAL SALINE 100 ML IV SCH ×2 (18:40→23:09)
[2016-08-30 19:10] LABS: HEMATOCRIT 32.9 % (37.9-51.0); HGB HCT DIFFERENCE 0.1; MEAN CORPUSCULAR HEMOGLOBIN 34.9 pg (27.0-33.4); MEAN CORPUSCULAR HGB CONC 33.5 g/dL (32.0-36.0); MEAN CORPUSCULAR VOLUME 104 fl (80-97); RED BLOOD COUNT 3.16 10^6/uL (4.35-5.55); RED CELL DISTRIBUTION WIDTH 12.5 % (11.5-14.0); WHITE BLOOD COUNT 4.2 10^3/uL (4.0-10.5)
[2016-08-30 19:16] LABS: PARTIAL THROMBOPLASTIN TIME 31.5 SEC (23.5-35.8)
[2016-08-30 19:43] LABS: CREATININE RESULT 1.02 mg/dL (0.52-1.25)
[2016-08-30] MEDS: LORAZEPAM 0.5 MG TABLET PO PRN (20:59)
[2016-08-30] MEDS: DIVALPROEX SODIUM 125 MG CAP.SPRINK PO SCH (21:37)
[2016-08-30] MEDS: HEPARIN SOD (PORCINE) 5,000 UNIT/ML 1 ML SYRINGE SUBCUT SCH (21:42)
[2016-08-31] MEDS: IPRATROPIUM/ALBUTEROL 0.5-2.5 MG/3 ML AMPUL NEB SCH ×6 (00:10→19:46)
[2016-08-31] MEDS: PIPERACILLIN SODIUM/TAZOBACTAM 3.375 GM in NORMAL SALINE 100 ML IV SCH ×3 (05:46→18:33)
[2016-08-31] MEDS: HEPARIN SOD (PORCINE) 5,000 UNIT/ML 1 ML SYRINGE SUBCUT SCH ×3 (05:50→22:55)
[2016-08-31] MEDS: ASPIRIN 81 MG TABLET, ENT COATED PO SCH (09:56)
[2016-08-31] MEDS: QUETIAPINE FUMARATE 25 MG TABLET PO SCH ×2 (09:56→22:54)
[2016-08-31] MEDS: LISINOPRIL 5 MG TABLET PO SCH (09:56)
[2016-08-31] MEDS: ATENOLOL 50 MG TABLET PO SCH ×2 (09:56→22:50)
[2016-08-31] MEDS: CARBIDOPA/LEVODOPA 25-100 MG TABLET PO SCH ×3 (09:56→22:51)
[2016-08-31] MEDS: BUPROPION HCL 75 MG TABLET PO SCH (09:56)
[2016-08-31] MEDS: RIVASTIGMINE 9.5 MG/24 HR PATCH.TD24 TD SCH (09:57)
[2016-08-31] MEDS: BUDESONIDE/FORMOTEROL 80-4.5 MCG 60 PUFF/6.9 GM MDI IH SCH ×2 (09:59→23:03)
--- NOTE | 2016-08-31 10:37 | Physician Advisory Note ---
Physician Advisor ProgressNote .: [facility] the [facility], I have reviewed the medical record for this patient. Physician Advisor Statement: LASHANDA stephen status support: Spoke w/attending. He was concerned about the MIKI, and has treated it, with resolution. He reports he was concerned about pt due to SOB & wheezing occurring so soon after a recent adm/discharge, in association with pt's hypoxemia (present on & 08/30) & vital sign instability. He checked CT, which showed new "nodules" in RLL , perhaps representing "possible scarring", so wasn't convinced yet of the underlying pulmonary dx. He checked for PE, but V/Q was neg for this. Therefore, with continued VS instability & episodes of hypoxemia on 08/30, he suspected the new "nodules" in RLL, that he found were not present at last CT in Feb 2016 (when pt had pulmonary emboli), actually represented acute aspiration PNA, & appropriately started IV Zosyn. He has not yet seen evidence of acute systolic/diastolic CHF, but he is aware of pt's underlying systolic & diastolic dysfunction, which increases chances for acute CHF developing, especially w/IVF. Pt already tx'd in hospital x 1MN when attending found need to start Zosyn for new dx aspiration PNA, with recurrent hypoxemia present. Since starting Zosyn, pt's vital signs have improved, though he still has had some hypoxemia as low as 81% on RA documented this AM (at baseline, he does not need O2). Therefore, he has needed 2MNs of hospital care, & likely will need more, given ongoing recurrence of hypoxemia which he doesn't have at baseline, due to acute aspiration PNA. Appropriate for Inpt status as of 08/30 PM. CK
--- NOTE | 2016-08-31 17:36 | PDOC PROGRESS REPORT ---
Subjective Progress Note for:: 08/31/16 Subjective:: He was admitted initially for evaluation of bradycardia, he was found to have aspiration pneumonia with hypoxemia, he has Parkinson disease ,advanced dementia , he does not communicate that much Physical Exam Vital Signs: Temp Pulse Resp BP Pulse Ox 97.5 F 72 18 140/84 H 98 08/31/16 12:30 08/31/16 16:32 08/31/16 16:32 08/31/16 12:30 08/31/16 16:32 General appearance: PRESENT: mild distress Eye exam: PRESENT: PERRLA Respiratory exam: PRESENT: rhonchi Cardiovascular exam: PRESENT: +S1, +S2 GI/Abdominal exam: PRESENT: soft Results Impressions: Chest X-Ray 08/28/16 23:32 IMPRESSION: No acute cardiopulmonary findings. Limitation. Head CT 08/28/16 23:33 IMPRESSION: No acute findings. 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 No pneumothorax. No consolidation or pleural effusions. Lung Scan-VQ NM 08/30/16 00:00 IMPRESSION: MARKEDLY HETEROGENOUS DISTRIBUTION ON VENTILATION IMAGING CONSISTENT WITH UNDERLYING LUNG DISEASE. CORRESPONDING SUBSEGMENTAL MATCHING PERFUSION DEFECTS. NO VENTILATION-PERFUSION MISMATCH. LOW PROBABILITY OF PULMONARY EMBOLISM. Assessment & Plan - Diagnosis (1) Aspiration pneumonia Qualifiers: Aspiration pneumonia type: unspecified Laterality: right Lung location: lower lobe of lung Qualified Code(s): J69.0 - Pneumonitis due to inhalation of food and vomit Is this a current diagnosis for this admission?: Yes (2) Parkinson disease Is this a current diagnosis for this admission?: Yes (3) Acute kidney injury Is this a current diagnosis for this admission?: Yes (4) Hypoxemia Is this a current diagnosis for this admission?: YesPlan: oxygen nasal canula is ordered
[2016-08-31] MEDS: DIVALPROEX SODIUM 125 MG CAP.SPRINK PO SCH (22:50)
[2016-09-01] MEDS: PIPERACILLIN SODIUM/TAZOBACTAM 3.375 GM in NORMAL SALINE 100 ML IV SCH ×4 (00:16→17:07)
[2016-09-01] MEDS: LORAZEPAM 0.5 MG TABLET PO PRN ×2 (00:16→14:47)
[2016-09-01] MEDS: IPRATROPIUM/ALBUTEROL 0.5-2.5 MG/3 ML AMPUL NEB SCH ×6 (00:19→19:52)
[2016-09-01] MEDS: HEPARIN SOD (PORCINE) 5,000 UNIT/ML 1 ML SYRINGE SUBCUT SCH ×3 (05:16→21:52)
[2016-09-01] MEDS: BUDESONIDE/FORMOTEROL 80-4.5 MCG 60 PUFF/6.9 GM MDI IH SCH ×2 (11:16→21:52)
[2016-09-01] MEDS: LISINOPRIL 5 MG TABLET PO SCH (11:17)
[2016-09-01] MEDS: ASPIRIN 81 MG TABLET, ENT COATED PO SCH (11:17)
[2016-09-01] MEDS: QUETIAPINE FUMARATE 25 MG TABLET PO SCH ×2 (11:22→21:52)
[2016-09-01] MEDS: ATENOLOL 50 MG TABLET PO SCH ×2 (11:22→21:52)
[2016-09-01] MEDS: CARBIDOPA/LEVODOPA 25-100 MG TABLET PO SCH ×4 (11:22→21:52)
[2016-09-01] MEDS: BUPROPION HCL 75 MG TABLET PO SCH (11:23)
[2016-09-01] MEDS: RIVASTIGMINE 9.5 MG/24 HR PATCH.TD24 TD SCH (11:23)
--- NOTE | 2016-09-01 21:02 | PDOC PROGRESS REPORT ---
Subjective Progress Note for:: 09/01/16 Subjective:: Condition is very poor, he is presently audibly wheezing , the plan of care was discussed with patient spouse Physical Exam Vital Signs: Temp Pulse Resp BP Pulse Ox 97.7 F 86 16 113/54 L 98 09/01/16 20:00 09/01/16 20:00 09/01/16 20:00 09/01/16 20:00 09/01/16 20:00 Intake & Output 08/31/16 09/01/16 09/02/16 06:59 06:59 06:59 Intake Total 1945 5058 Output Total 300 230 Balance 1645 4828 General appearance: PRESENT: mild distress Eye exam: PRESENT: PERRLA Respiratory exam: PRESENT: wheezes Cardiovascular exam: PRESENT: +S1, +S2 GI/Abdominal exam: PRESENT: soft Results Impressions: Chest X-Ray 08/28/16 23:32 IMPRESSION: No acute cardiopulmonary findings. Limitation. Head CT 08/28/16 23:33 IMPRESSION: No acute findings. 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 No pneumothorax. No consolidation or pleural effusions. Lung Scan-VQ NM 08/30/16 00:00 IMPRESSION: MARKEDLY HETEROGENOUS DISTRIBUTION ON VENTILATION IMAGING CONSISTENT WITH UNDERLYING LUNG DISEASE. CORRESPONDING SUBSEGMENTAL MATCHING PERFUSION DEFECTS. NO VENTILATION-PERFUSION MISMATCH. LOW PROBABILITY OF PULMONARY EMBOLISM. Assessment & Plan - Diagnosis (1) Aspiration pneumonia Qualifiers: Aspiration pneumonia type: unspecified Laterality: right Lung location: lower lobe of lung Qualified Code(s): J69.0 - Pneumonitis due to inhalation of food and vomit Is this a current diagnosis for this admission?: Yes (2) Parkinson disease Is this a current diagnosis for this admission?: Yes (3) Acute kidney injury Is this a current diagnosis for this admission?: Yes (4) Hypoxemia Is this a current diagnosis for this admission?: Yes - Plan Summary Plan Summary: Continue IV antibiotic, chest x-ray is ordered
[2016-09-01] MEDS: DIVALPROEX SODIUM 125 MG CAP.SPRINK PO SCH (21:52)
--- NOTE | 2016-09-01 22:39 | RADIOLOGY REPORT (SQ) ---
EXAM DESCRIPTION: CHEST PA/LAT COMPLETED DATE/TIME: 09/01/2016 10:20 pm REASON FOR STUDY: pneumonia COMPARISON: 03/22/2016 EXAM PARAMETERS: NUMBER OF VIEWS: two views TECHNIQUE: Digital Frontal and Lateral radiographic views of the chest acquired. RADIATION DOSE: NA LIMITATIONS: none FINDINGS: LUNGS AND PLEURA: No acute opacities, masses or pneumothorax. No pleural effusion. MEDIASTINUM AND HILAR STRUCTURES: Stable. HEART AND VASCULAR STRUCTURES: Heart normal size. No evidence for failure. BONES: No acute findings. HARDWARE: None in the chest. OTHER: No other significant finding. IMPRESSION: No acute finding. TECHNICAL DOCUMENTATION: JOB ID: [id number] [employer]- All Rights Reserved
[2016-09-02] MEDS: IPRATROPIUM/ALBUTEROL 0.5-2.5 MG/3 ML AMPUL NEB SCH ×7 (00:06→23:42)
[2016-09-02] MEDS: PIPERACILLIN SODIUM/TAZOBACTAM 3.375 GM in NORMAL SALINE 100 ML IV SCH ×4 (00:27→18:45)
[2016-09-02] MEDS: LORAZEPAM 0.5 MG TABLET PO PRN (02:05)
[2016-09-02] MEDS: HEPARIN SOD (PORCINE) 5,000 UNIT/ML 1 ML SYRINGE SUBCUT SCH ×3 (06:30→23:17)
[2016-09-02 09:04] LABS: ARTERIAL BLOOD BASE EXCESS 2.9 mmol/L; ARTERIAL BLOOD O2 SATURATION 95.2 % (94-98)
[2016-09-02] MEDS: QUETIAPINE FUMARATE 25 MG TABLET PO SCH ×2 (12:04→23:20)
[2016-09-02] MEDS: ASPIRIN 81 MG TABLET, ENT COATED PO SCH (12:04)
[2016-09-02] MEDS: CARBIDOPA/LEVODOPA 25-100 MG TABLET PO SCH ×4 (12:05→23:16)
[2016-09-02] MEDS: BUPROPION HCL 75 MG TABLET PO SCH (12:06)
[2016-09-02] MEDS: ATENOLOL 50 MG TABLET PO SCH ×2 (12:06→23:16)
[2016-09-02] MEDS: LISINOPRIL 5 MG TABLET PO SCH (12:09)
[2016-09-02] MEDS: RIVASTIGMINE 9.5 MG/24 HR PATCH.TD24 TD SCH (12:09)
[2016-09-02] MEDS: BUDESONIDE/FORMOTEROL 80-4.5 MCG 60 PUFF/6.9 GM MDI IH SCH ×2 (12:10→23:16)
--- NOTE | 2016-09-02 20:54 | PDOC PROGRESS REPORT ---
Subjective Progress Note for:: 09/02/16 Subjective:: Patient was seen by the bedside, he does not communicate, condition is very poor Physical Exam Vital Signs: Temp Pulse Resp BP Pulse Ox 97.8 F 66 18 151/86 H 100 09/02/16 20:00 09/02/16 20:00 09/02/16 20:00 09/02/16 20:00 09/02/16 20:00 Intake & Output 09/01/16 09/02/16 09/03/16 06:59 06:59 06:59 Intake Total 1945 6308 2773 Output Total 300 230 Balance 1645 6078 2773 General appearance: PRESENT: no acute distress Eye exam: PRESENT: PERRLA Respiratory exam: PRESENT: wheezes Cardiovascular exam: PRESENT: +S1, +S2 Neurological exam: PRESENT: alert Results Laboratory Results: 09/02/16 08:50 Carbonic Acid 1.24 HCO3/H2CO3 Ratio 22:1 ABG pH 7.44 ABG pCO2 41.3 ABG pO2 73.3 L ABG HCO3 27.4 H ABG O2 Saturation 95.2 ABG Base Excess 2.9 FiO2 21% Impressions: Head CT 08/28/16 23:33 IMPRESSION: No acute findings. 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 No pneumothorax. No consolidation or pleural effusions. Lung Scan-VQ NM 08/30/16 00:00 IMPRESSION: MARKEDLY HETEROGENOUS DISTRIBUTION ON VENTILATION IMAGING CONSISTENT WITH UNDERLYING LUNG DISEASE. CORRESPONDING SUBSEGMENTAL MATCHING PERFUSION DEFECTS. NO VENTILATION-PERFUSION MISMATCH. LOW PROBABILITY OF PULMONARY EMBOLISM. Chest X-Ray 09/01/16 00:00 IMPRESSION: No acute finding. Assessment & Plan - Diagnosis (1) Aspiration pneumonia Qualifiers: Aspiration pneumonia type: unspecified Laterality: right Lung location: lower lobe of lung Qualified Code(s): J69.0 - Pneumonitis due to inhalation of food and vomit Is this a current diagnosis for this admission?: Yes (2) Parkinson disease Is this a current diagnosis for this admission?: Yes (3) Acute kidney injury Is this a current diagnosis for this admission?: Yes (4) Hypoxemia Is this a current diagnosis for this admission?: Yes - Plan Summary Plan Summary: Continue present treatment regimen
[2016-09-02 21:12] LABS: ABSOLUTE EOSINOPHILS # (AUTO) 0.3 10^3/uL (0.0-0.6); ABSOLUTE LYMPHOCYTES (AUTO) 0.7 10^3/uL (0.5-4.7); ABSOLUTE MONOCYTES (AUTO) 0.3 10^3/uL (0.1-1.4); ABSOLUTE NEUT (AUTO) 2.2 10^3/uL (1.7-8.2); BASOPHILS % (AUTO) 1.1 % (0-2); EOSINOPHILS % (AUTO) 9.1 % (0-6); HEMATOCRIT 31.4 % (37.9-51.0); HEMOGLOBIN 10.4 g/dL (13.5-17.0); HGB HCT DIFFERENCE -0.2; LYMPHOCYTES % (AUTO) 19.2 % (13-45); MEAN CORPUSCULAR HEMOGLOBIN 33.9 pg (27.0-33.4); MEAN CORPUSCULAR HGB CONC 33.1 g/dL (32.0-36.0); MEAN CORPUSCULAR VOLUME 103 fl (80-97); MONOCYTES % (AUTO) 9.3 % (3-13); RED BLOOD COUNT 3.07 10^6/uL (4.35-5.55); RED CELL DISTRIBUTION WIDTH 12.7 % (11.5-14.0); SEGMENTED NEUTROPHILS % (AUTO) 61.3 % (42-78); WHITE BLOOD COUNT 3.6 10^3/uL (4.0-10.5)
[2016-09-02 21:26] LABS: ALANINE AMINOTRANSFERASE 23 U/L (21-72); ALBUMIN 3.3 g/dL (3.5-5.0); ALKALINE PHOSPHATASE 75 U/L (38-126); ANION GAP 9 (5-19); ASPARTATE AMINO TRANSFERASE 25 U/L (17-59); BILIRUBIN,DIRECT 0.3 mg/dL (0.0-0.4); BILIRUBIN,TOTAL 0.9 mg/dL (0.2-1.3); BLOOD UREA NITROGEN 15 mg/dL (7-20); CALCIUM 8.5 mg/dL (8.4-10.2); CARBON DIOXIDE 24 mmol/L (22-30); CHLORIDE 105 mmol/L (98-107); CREATININE RESULT 1.12 mg/dL (0.52-1.25); GLUCOSE 78 mg/dL (75-110); POTASSIUM 4.4 mmol/L (3.6-5.0); SODIUM 137.6 mmol/L (137-145); TOTAL PROTEIN 6.3 g/dL (6.3-8.2)
[2016-09-02] MEDS: DIVALPROEX SODIUM 125 MG CAP.SPRINK PO SCH (23:17)
[2016-09-03] MEDS: PIPERACILLIN SODIUM/TAZOBACTAM 3.375 GM in NORMAL SALINE 100 ML IV SCH ×4 (02:39→18:11)
[2016-09-03] MEDS: IPRATROPIUM/ALBUTEROL 0.5-2.5 MG/3 ML AMPUL NEB SCH ×6 (04:05→23:45)
[2016-09-03 05:18] LABS: ABSOLUTE BASOPHILS # (AUTO) 0.1 10^3/uL (0.0-0.2); ABSOLUTE EOSINOPHILS # (AUTO) 0.3 10^3/uL (0.0-0.6); ABSOLUTE LYMPHOCYTES (AUTO) 0.9 10^3/uL (0.5-4.7); ABSOLUTE MONOCYTES (AUTO) 0.4 10^3/uL (0.1-1.4); ABSOLUTE NEUT (AUTO) 2.9 10^3/uL (1.7-8.2); BASOPHILS % (AUTO) 1.3 % (0-2); EOSINOPHILS % (AUTO) 7.4 % (0-6); HEMATOCRIT 32.4 % (37.9-51.0); HEMOGLOBIN 10.7 g/dL (13.5-17.0); HGB HCT DIFFERENCE -0.3; LYMPHOCYTES % (AUTO) 20.4 % (13-45); MEAN CORPUSCULAR HEMOGLOBIN 34.1 pg (27.0-33.4); MEAN CORPUSCULAR HGB CONC 33.1 g/dL (32.0-36.0); MEAN CORPUSCULAR VOLUME 103 fl (80-97); MONOCYTES % (AUTO) 8.9 % (3-13); RED BLOOD COUNT 3.14 10^6/uL (4.35-5.55); RED CELL DISTRIBUTION WIDTH 12.6 % (11.5-14.0); WHITE BLOOD COUNT 4.6 10^3/uL (4.0-10.5)
[2016-09-03 05:27] LABS: ALANINE AMINOTRANSFERASE 38 U/L (21-72); ALBUMIN 3.4 g/dL (3.5-5.0); ALKALINE PHOSPHATASE 78 U/L (38-126); ANION GAP 11 (5-19); ASPARTATE AMINO TRANSFERASE 26 U/L (17-59); BILIRUBIN,DIRECT 0.3 mg/dL (0.0-0.4); BILIRUBIN,TOTAL 0.9 mg/dL (0.2-1.3); BLOOD UREA NITROGEN 15 mg/dL (7-20); CALCIUM 8.7 mg/dL (8.4-10.2); CARBON DIOXIDE 21 mmol/L (22-30); CHLORIDE 107 mmol/L (98-107); GLUCOSE 67 mg/dL (75-110); POTASSIUM 4.5 mmol/L (3.6-5.0); SODIUM 138.5 mmol/L (137-145); TOTAL PROTEIN 6.5 g/dL (6.3-8.2)
[2016-09-03] MEDS: HEPARIN SOD (PORCINE) 5,000 UNIT/ML 1 ML SYRINGE SUBCUT SCH ×3 (06:21→21:55)
--- NOTE | 2016-09-03 11:13 | PDOC PROGRESS REPORT ---
Subjective Progress Note for:: 09/03/16 Subjective:: Patient is currently doing fair patient's nonverbal. Patient was admitted for the aspirations pneumonia Physical Exam Vital Signs: Temp Pulse Resp BP Pulse Ox 97.7 F 72 20 151/99 H 96 09/03/16 07:51 09/03/16 07:51 09/03/16 07:51 09/03/16 07:51 09/03/16 07:51 Intake & Output 09/02/16 09/03/16 09/04/16 06:59 06:59 06:59 Intake Total 6308 3973 Output Total 230 Balance 6078 3973 General appearance: PRESENT: no acute distress Eye exam: PRESENT: PERRLA Mouth exam: PRESENT: neck supple Respiratory exam: PRESENT: clear to auscultation kalen Cardiovascular exam: PRESENT: +S1, +S2 GI/Abdominal exam: PRESENT: normal bowel sounds, soft Extremities exam: ABSENT: pedal edema Neurological exam: PRESENT: alert, awake Psychiatric exam: PRESENT: anxious Skin exam: PRESENT: dry Results Laboratory Results: 09/03/16 04:50 09/03/16 04:50 09/02/16 09/02/16 09/03/16 21:00 21:00 04:50 WBC 3.6 L 4.6 RBC 3.07 L 3.14 L Hgb 10.4 L 10.7 L Hct 31.4 L 32.4 L MCV 103 H 103 H MCH 33.9 H 34.1 H MCHC 33.1 33.1 RDW 12.7 12.6 Plt Count 173 182 Seg Neutrophils % 61.3 62.0 Lymphocytes % 19.2 20.4 Monocytes % 9.3 8.9 Eosinophils % 9.1 H 7.4 H Basophils % 1.1 1.3 Absolute Neutrophils 2.2 2.9 Absolute Lymphocytes 0.7 0.9 Absolute Monocytes 0.3 0.4 Absolute Eosinophils 0.3 0.3 Absolute Basophils 0.0 0.1 Sodium 137.6 Potassium 4.4 Chloride 105 Carbon Dioxide 24 Anion Gap 9 BUN 15 Creatinine 1.12 Est GFR ( Amer) > 60 Est GFR (Non-Af Amer) > 60 Glucose 78 Calcium 8.5 Total Bilirubin 0.9 AST 25 ALT 23 Alkaline Phosphatase 75 Total Protein 6.3 Albumin 3.3 L 09/03/16 04:50 WBC RBC Hgb Hct MCV MCH MCHC RDW Plt Count Seg Neutrophils % Lymphocytes % Monocytes % Eosinophils % Basophils % Absolute Neutrophils Absolute Lymphocytes Absolute Monocytes Absolute Eosinophils Absolute Basophils Sodium 138.5 Potassium 4.5 Chloride 107 Carbon Dioxide 21 L Anion Gap 11 BUN 15 Creatinine 1.10 Est GFR ( Amer) > 60 Est GFR (Non-Af Amer) > 60 Glucose 67 L Calcium 8.7 Total Bilirubin 0.9 AST 26 ALT 38 Alkaline Phosphatase 78 Total Protein 6.5 Albumin 3.4 L Impressions: Head CT 08/28/16 23:33 IMPRESSION: No acute findings. 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 No pneumothorax. No consolidation or pleural effusions. Lung Scan-VQ NM 08/30/16 00:00 IMPRESSION: MARKEDLY HETEROGENOUS DISTRIBUTION ON VENTILATION IMAGING CONSISTENT WITH UNDERLYING LUNG DISEASE. CORRESPONDING SUBSEGMENTAL MATCHING PERFUSION DEFECTS. NO VENTILATION-PERFUSION MISMATCH. LOW PROBABILITY OF PULMONARY EMBOLISM. Chest X-Ray 09/01/16 00:00 IMPRESSION: No acute finding. Assessment & Plan - Diagnosis (1) Aspiration pneumonia Is this a current diagnosis for this admission?: YesPlan: Continues to IV antibiotic (2) Parkinson disease Is this a current diagnosis for this admission?: Yes - Time Time Spent with patient: 15-24 minutes Medications reviewed and adjusted accordingly: Yes Anticipated discharge: Other Within: Other - Inpatient Certification Medical Necessity: Need for IV Antibiotics Post Hospital Care: D/C Customer Support Agent Documentation - Plan Summary Plan Summary: Continues to IV antibiotic and review the all other medications other medical problems all stable
[2016-09-03] MEDS: RIVASTIGMINE 9.5 MG/24 HR PATCH.TD24 TD SCH (12:33)
[2016-09-03] MEDS: LISINOPRIL 5 MG TABLET PO SCH (12:34)
[2016-09-03] MEDS: ATENOLOL 50 MG TABLET PO SCH ×2 (12:34→21:53)
[2016-09-03] MEDS: QUETIAPINE FUMARATE 25 MG TABLET PO SCH ×2 (12:34→21:52)
[2016-09-03] MEDS: CARBIDOPA/LEVODOPA 25-100 MG TABLET PO SCH ×4 (12:34→21:54)
[2016-09-03] MEDS: ASPIRIN 81 MG TABLET, ENT COATED PO SCH (12:34)
[2016-09-03] MEDS: BUPROPION HCL 75 MG TABLET PO SCH (12:35)
[2016-09-03] MEDS: BUDESONIDE/FORMOTEROL 80-4.5 MCG 60 PUFF/6.9 GM MDI IH SCH ×2 (12:36→21:55)
[2016-09-03] MEDS ORDERED: DIVALPROEX SODIUM 125 MG CAP.SPRINK PO ONE (21:29)
[2016-09-03] MEDS: LORAZEPAM 0.5 MG TABLET PO PRN (21:51)
[2016-09-03] MEDS: DIVALPROEX SODIUM 125 MG CAP.SPRINK PO SCH (21:56)
[2016-09-04] MEDS: PIPERACILLIN SODIUM/TAZOBACTAM 3.375 GM in NORMAL SALINE 100 ML IV SCH ×5 (00:34→23:49)
[2016-09-04] MEDS: IPRATROPIUM/ALBUTEROL 0.5-2.5 MG/3 ML AMPUL NEB SCH ×5 (03:56→20:17)
[2016-09-04] MEDS: HEPARIN SOD (PORCINE) 5,000 UNIT/ML 1 ML SYRINGE SUBCUT SCH ×3 (05:53→22:39)
[2016-09-04 06:31] LABS: ABSOLUTE EOSINOPHILS # (AUTO) 0.2 10^3/uL (0.0-0.6); ABSOLUTE LYMPHOCYTES (AUTO) 0.8 10^3/uL (0.5-4.7); ABSOLUTE MONOCYTES (AUTO) 0.4 10^3/uL (0.1-1.4); BASOPHILS % (AUTO) 1.2 % (0-2); EOSINOPHILS % (AUTO) 6.8 % (0-6); HEMATOCRIT 32.1 % (37.9-51.0); HEMOGLOBIN 10.4 g/dL (13.5-17.0); HGB HCT DIFFERENCE -0.9; LYMPHOCYTES % (AUTO) 23.9 % (13-45); MEAN CORPUSCULAR HEMOGLOBIN 33.6 pg (27.0-33.4); MEAN CORPUSCULAR HGB CONC 32.5 g/dL (32.0-36.0); MEAN CORPUSCULAR VOLUME 103 fl (80-97); MONOCYTES % (AUTO) 10.7 % (3-13); RED BLOOD COUNT 3.11 10^6/uL (4.35-5.55); RED CELL DISTRIBUTION WIDTH 12.6 % (11.5-14.0); SEGMENTED NEUTROPHILS % (AUTO) 57.4 % (42-78); WHITE BLOOD COUNT 3.4 10^3/uL (4.0-10.5)
[2016-09-04 06:37] LABS: ANION GAP 8 (5-19); BLOOD UREA NITROGEN 16 mg/dL (7-20); CALCIUM 8.3 mg/dL (8.4-10.2); CARBON DIOXIDE 23 mmol/L (22-30); CHLORIDE 108 mmol/L (98-107); CREATININE RESULT 1.12 mg/dL (0.52-1.25); GLUCOSE 69 mg/dL (75-110); POTASSIUM 4.2 mmol/L (3.6-5.0); SODIUM 138.7 mmol/L (137-145)
[2016-09-04] MEDS: ASPIRIN 81 MG TABLET, ENT COATED PO SCH (11:22)
[2016-09-04] MEDS: ATENOLOL 50 MG TABLET PO SCH ×2 (11:23→22:39)
[2016-09-04] MEDS: CARBIDOPA/LEVODOPA 25-100 MG TABLET PO SCH ×4 (11:23→22:39)
[2016-09-04] MEDS: LISINOPRIL 5 MG TABLET PO SCH (11:23)
[2016-09-04] MEDS: QUETIAPINE FUMARATE 25 MG TABLET PO SCH ×2 (11:23→22:38)
[2016-09-04] MEDS: RIVASTIGMINE 9.5 MG/24 HR PATCH.TD24 TD SCH (11:24)
[2016-09-04] MEDS: BUDESONIDE/FORMOTEROL 80-4.5 MCG 60 PUFF/6.9 GM MDI IH SCH ×2 (11:24→22:40)
[2016-09-04] MEDS: BUPROPION HCL 75 MG TABLET PO SCH (11:24)
--- NOTE | 2016-09-04 13:41 | PDOC PROGRESS REPORT ---
Subjective Progress Note for:: 09/04/16 Subjective:: pt is doing same no fever nosob Physical Exam Vital Signs: Temp Pulse Resp BP Pulse Ox 97.4 F 61 18 154/93 H 99 09/04/16 07:45 09/04/16 07:45 09/04/16 07:45 09/04/16 07:45 09/04/16 07:45 Intake & Output 09/03/16 09/04/16 09/05/16 06:59 06:59 06:59 Intake Total 3973 3310 Output Total 400 Balance 3973 2910 General appearance: PRESENT: no acute distress Eye exam: PRESENT: PERRLA Respiratory exam: PRESENT: clear to auscultation kalen Cardiovascular exam: PRESENT: +S1, +S2 GI/Abdominal exam: PRESENT: normal bowel sounds, soft Extremities exam: ABSENT: pedal edema Neurological exam: PRESENT: alert, awake Results Laboratory Results: 09/04/16 05:18 09/04/16 05:18 09/04/16 09/04/16 05:18 05:18 WBC 3.4 L RBC 3.11 L Hgb 10.4 L Hct 32.1 L MCV 103 H MCH 33.6 H MCHC 32.5 RDW 12.6 Plt Count 149 L Seg Neutrophils % 57.4 Lymphocytes % 23.9 Monocytes % 10.7 Eosinophils % 6.8 H Basophils % 1.2 Absolute Neutrophils 2.0 Absolute Lymphocytes 0.8 Absolute Monocytes 0.4 Absolute Eosinophils 0.2 Absolute Basophils 0.0 Sodium 138.7 Potassium 4.2 Chloride 108 H Carbon Dioxide 23 Anion Gap 8 BUN 16 Creatinine 1.12 Est GFR ( Amer) > 60 Est GFR (Non-Af Amer) > 60 Glucose 69 L Calcium 8.3 L Impressions: Head CT 08/28/16 23:33 IMPRESSION: No acute findings. 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 No pneumothorax. No consolidation or pleural effusions. Lung Scan-VQ NM 08/30/16 00:00 IMPRESSION: MARKEDLY HETEROGENOUS DISTRIBUTION ON VENTILATION IMAGING CONSISTENT WITH UNDERLYING LUNG DISEASE. CORRESPONDING SUBSEGMENTAL MATCHING PERFUSION DEFECTS. NO VENTILATION-PERFUSION MISMATCH. LOW PROBABILITY OF PULMONARY EMBOLISM. Chest X-Ray 09/01/16 00:00 IMPRESSION: No acute finding. Assessment & Plan - Diagnosis (1) Aspiration pneumonia Is this a current diagnosis for this admission?: YesPlan: Continues to IV antibiotic (2) Parkinson disease Is this a current diagnosis for this admission?: Yes - Time Time Spent with patient: 15-24 minutes Medications reviewed and adjusted accordingly: Yes Within: Other - Inpatient Certification Medical Necessity: Need Close Monitoring Due to Risk of Patient Decompensation, Need for IV Antibiotics - cont curr med
[2016-09-04] MEDS: DIVALPROEX SODIUM 125 MG CAP.SPRINK PO SCH (22:38)
[2016-09-04] MEDS: LORAZEPAM 0.5 MG TABLET PO PRN (22:39)
[2016-09-04] MEDS: NORMAL SALINE 1000 ML 1,000 ML IV PRN (22:40)
[2016-09-05] MEDS: IPRATROPIUM/ALBUTEROL 0.5-2.5 MG/3 ML AMPUL NEB SCH ×6 (01:02→21:00)
[2016-09-05 06:09] LABS: ANION GAP 10 (5-19); BLOOD UREA NITROGEN 12 mg/dL (7-20); CALCIUM 8.5 mg/dL (8.4-10.2); CARBON DIOXIDE 21 mmol/L (22-30); CHLORIDE 106 mmol/L (98-107); CREATININE RESULT 0.98 mg/dL (0.52-1.25); GLUCOSE 69 mg/dL (75-110); POTASSIUM 4.2 mmol/L (3.6-5.0); SODIUM 136.5 mmol/L (137-145)
[2016-09-05] MEDS: PIPERACILLIN SODIUM/TAZOBACTAM 3.375 GM in NORMAL SALINE 100 ML IV SCH ×3 (06:10→17:54)
[2016-09-05] MEDS: HEPARIN SOD (PORCINE) 5,000 UNIT/ML 1 ML SYRINGE SUBCUT SCH ×3 (06:10→23:14)
[2016-09-05] MEDS: QUETIAPINE FUMARATE 25 MG TABLET PO SCH ×2 (10:31→23:10)
[2016-09-05] MEDS: ASPIRIN 81 MG TABLET, ENT COATED PO SCH (10:31)
[2016-09-05] MEDS: BUPROPION HCL 75 MG TABLET PO SCH (10:32)
[2016-09-05] MEDS: LISINOPRIL 5 MG TABLET PO SCH (10:32)
[2016-09-05] MEDS: ATENOLOL 50 MG TABLET PO SCH ×2 (10:33→23:15)
[2016-09-05] MEDS: CARBIDOPA/LEVODOPA 25-100 MG TABLET PO SCH ×3 (10:33→18:00)
[2016-09-05] MEDS: RIVASTIGMINE 9.5 MG/24 HR PATCH.TD24 TD SCH (10:34)
[2016-09-05] MEDS: ALBUTEROL SULFATE HFA (90 MCG/PUFF) 200 PUFF/8.5 GM MDI IH PRN (10:35)
[2016-09-05] MEDS: BUDESONIDE/FORMOTEROL 80-4.5 MCG 60 PUFF/6.9 GM MDI IH SCH ×2 (10:36→23:52)
--- NOTE | 2016-09-05 20:04 | PDOC PROGRESS REPORT ---
Subjective Progress Note for:: 09/05/16 Subjective:: He was seen by the bedside, is improved today, consultation from PT Physical Exam Vital Signs: Temp Pulse Resp BP Pulse Ox 97.2 F 71 18 151/87 H 100 09/05/16 14:24 09/05/16 16:52 09/05/16 16:52 09/05/16 14:24 09/05/16 16:52 Intake & Output 09/04/16 09/05/16 09/06/16 06:59 06:59 06:59 Intake Total 3310 3140 1574 Output Total 400 0 Balance 2910 3140 1574 General appearance: PRESENT: no acute distress Eye exam: PRESENT: PERRLA Respiratory exam: PRESENT: rhonchi Cardiovascular exam: PRESENT: +S1, +S2 GI/Abdominal exam: PRESENT: soft Neurological exam: PRESENT: alert, CN II-XII grossly intact Results Laboratory Results: 09/04/16 05:18 09/05/16 04:55 09/05/16 04:55 Sodium 136.5 L Potassium 4.2 Chloride 106 Carbon Dioxide 21 L Anion Gap 10 BUN 12 Creatinine 0.98 Est GFR ( Amer) > 60 Est GFR (Non-Af Amer) > 60 Glucose 69 L Calcium 8.5 Impressions: Head CT 08/28/16 23:33 IMPRESSION: No acute findings. 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 No pneumothorax. No consolidation or pleural effusions. Lung Scan-VQ NM 08/30/16 00:00 IMPRESSION: MARKEDLY HETEROGENOUS DISTRIBUTION ON VENTILATION IMAGING CONSISTENT WITH UNDERLYING LUNG DISEASE. CORRESPONDING SUBSEGMENTAL MATCHING PERFUSION DEFECTS. NO VENTILATION-PERFUSION MISMATCH. LOW PROBABILITY OF PULMONARY EMBOLISM. Chest X-Ray 09/01/16 00:00 IMPRESSION: No acute finding. Assessment & Plan - Diagnosis (1) Aspiration pneumonia Qualifiers: Aspiration pneumonia type: unspecified Laterality: right Lung location: lower lobe of lung Qualified Code(s): J69.0 - Pneumonitis due to inhalation of food and vomit Is this a current diagnosis for this admission?: Yes (2) Parkinson disease Is this a current diagnosis for this admission?: Yes (3) Acute kidney injury Is this a current diagnosis for this admission?: Yes (4) Hypoxemia Is this a current diagnosis for this admission?: Yes
[2016-09-05] MEDS ORDERED: LORAZEPAM 0.5 MG TABLET ONE (23:05)
[2016-09-05] MEDS: DIVALPROEX SODIUM 125 MG CAP.SPRINK PO SCH (23:10)
[2016-09-06] MEDS: IPRATROPIUM/ALBUTEROL 0.5-2.5 MG/3 ML AMPUL NEB SCH ×6 (00:06→20:08)
[2016-09-06] MEDS ORDERED: CARBIDOPA/LEVODOPA 25-100 MG TABLET PO ONE ×2 (00:15→12:00)
[2016-09-06] MEDS: PIPERACILLIN SODIUM/TAZOBACTAM 3.375 GM in NORMAL SALINE 100 ML IV SCH ×4 (00:23→22:54)
[2016-09-06] MEDS: NORMAL SALINE 1000 ML 1,000 ML IV PRN ×2 (00:32→17:39)
[2016-09-06] MEDS: LEVALBUTEROL HCL NEB 1.25 MG/3 ML AMPUL NEB PRN (01:25)
[2016-09-06] MEDS: HEPARIN SOD (PORCINE) 5,000 UNIT/ML 1 ML SYRINGE SUBCUT SCH ×3 (05:21→21:39)
[2016-09-06 06:50] LABS: ANION GAP 9 (5-19); BLOOD UREA NITROGEN 9 mg/dL (7-20); CALCIUM 8.4 mg/dL (8.4-10.2); CARBON DIOXIDE 21 mmol/L (22-30); CHLORIDE 107 mmol/L (98-107); CREATININE RESULT 1.05 mg/dL (0.52-1.25); GLUCOSE 86 mg/dL (75-110); POTASSIUM 3.9 mmol/L (3.6-5.0); SODIUM 137.1 mmol/L (137-145)
[2016-09-06] MEDS: ATENOLOL 50 MG TABLET PO SCH ×2 (11:28→22:54)
[2016-09-06] MEDS: LISINOPRIL 5 MG TABLET PO SCH (11:29)
[2016-09-06] MEDS: BUPROPION HCL 75 MG TABLET PO SCH (11:29)
[2016-09-06] MEDS: LORAZEPAM 0.5 MG TABLET PO PRN (11:29)
[2016-09-06] MEDS: ASPIRIN 81 MG TABLET, ENT COATED PO SCH (11:29)
[2016-09-06] MEDS: RIVASTIGMINE 9.5 MG/24 HR PATCH.TD24 TD SCH (11:30)
[2016-09-06] MEDS: QUETIAPINE FUMARATE 25 MG TABLET PO SCH ×2 (11:30→22:55)
[2016-09-06] MEDS: BUDESONIDE/FORMOTEROL 80-4.5 MCG 60 PUFF/6.9 GM MDI IH SCH ×2 (11:30→22:55)
[2016-09-06] MEDS: CARBIDOPA/LEVODOPA 25-100 MG TABLET PO SCH ×4 (11:38→22:54)
--- NOTE | 2016-09-06 19:48 | PDOC PROGRESS REPORT ---
Subjective Progress Note for:: 09/13/16 Subjective:: Patient's condition is about the same, he gets agitated every now and then. He was admitted for aspiration pneumonia with hypoxemia Physical Exam Vital Signs: Temp Pulse Resp BP Pulse Ox 97.2 F 65 22 H 151/101 H 96 09/06/16 15:29 09/06/16 16:34 09/06/16 16:34 09/06/16 15:32 09/06/16 16:34 Intake & Output 09/05/16 09/06/16 09/07/16 06:59 06:59 06:59 Intake Total 3140 2854 1454 Output Total 0 980 Balance 3140 1874 1454 General appearance: PRESENT: mild distress Eye exam: PRESENT: PERRLA Respiratory exam: PRESENT: rhonchi Cardiovascular exam: PRESENT: +S1, +S2 GI/Abdominal exam: PRESENT: soft Neurological exam: PRESENT: alert, CN II-XII grossly intact Results Laboratory Results: 09/04/16 05:18 09/06/16 04:39 09/06/16 04:39 Sodium 137.1 Potassium 3.9 Chloride 107 Carbon Dioxide 21 L Anion Gap 9 BUN 9 Creatinine 1.05 Est GFR ( Amer) > 60 Est GFR (Non-Af Amer) > 60 Glucose 86 Calcium 8.4 Impressions: Head CT 08/28/16 23:33 IMPRESSION: No acute findings. 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 No pneumothorax. No consolidation or pleural effusions. Lung Scan-VQ NM 08/30/16 00:00 IMPRESSION: MARKEDLY HETEROGENOUS DISTRIBUTION ON VENTILATION IMAGING CONSISTENT WITH UNDERLYING LUNG DISEASE. CORRESPONDING SUBSEGMENTAL MATCHING PERFUSION DEFECTS. NO VENTILATION-PERFUSION MISMATCH. LOW PROBABILITY OF PULMONARY EMBOLISM. Chest X-Ray 09/01/16 00:00 IMPRESSION: No acute finding. Assessment & Plan - Diagnosis (1) Aspiration pneumonia Qualifiers: Aspiration pneumonia type: unspecified Laterality: right Lung location: lower lobe of lung Qualified Code(s): J69.0 - Pneumonitis due to inhalation of food and vomit Is this a current diagnosis for this admission?: Yes (2) Parkinson disease Is this a current diagnosis for this admission?: Yes (3) Acute kidney injury Is this a current diagnosis for this admission?: Yes (4) Hypoxemia Is this a current diagnosis for this admission?: YesPlan: oxygen nasal canula is ordered
[2016-09-06] MEDS: DIVALPROEX SODIUM 125 MG CAP.SPRINK PO SCH (22:49)
[2016-09-07] MEDS ORDERED: PIPERACILLIN SODIUM/TAZOBACTAM 3.375 GM in NORMAL SALINE 100 ML IV SCH ×2
[2016-09-07] MEDS: IPRATROPIUM/ALBUTEROL 0.5-2.5 MG/3 ML AMPUL NEB SCH ×7 (00:16→23:58)
[2016-09-07] MEDS: PIPERACILLIN SODIUM/TAZOBACTAM 3.375 GM in NORMAL SALINE 100 ML IV SCH ×4 (02:11→22:03)
[2016-09-07] MEDS: HEPARIN SOD (PORCINE) 5,000 UNIT/ML 1 ML SYRINGE SUBCUT SCH ×3 (02:45→22:25)
[2016-09-07] MEDS: LORAZEPAM 0.5 MG TABLET PO PRN ×2 (06:57→22:22)
[2016-09-07] MEDS: LEVALBUTEROL HCL NEB 1.25 MG/3 ML AMPUL NEB PRN (08:13)
[2016-09-07] MEDS: ASPIRIN 81 MG TABLET, ENT COATED PO SCH (09:19)
[2016-09-07] MEDS: LISINOPRIL 5 MG TABLET PO SCH (09:20)
[2016-09-07] MEDS: CARBIDOPA/LEVODOPA 25-100 MG TABLET PO SCH ×3 (09:22→22:03)
[2016-09-07] MEDS: QUETIAPINE FUMARATE 25 MG TABLET PO SCH ×2 (09:22→22:04)
[2016-09-07] MEDS: ATENOLOL 50 MG TABLET PO SCH ×2 (09:22→22:04)
[2016-09-07] MEDS: RIVASTIGMINE 9.5 MG/24 HR PATCH.TD24 TD SCH (09:22)
[2016-09-07] MEDS: BUPROPION HCL 75 MG TABLET PO SCH (09:22)
[2016-09-07] MEDS: BUDESONIDE/FORMOTEROL 80-4.5 MCG 60 PUFF/6.9 GM MDI IH SCH ×2 (09:23→22:03)
[2016-09-07] MEDS ORDERED: RACEPINEPHRINE HCL 2.25% NEB 0.5 ML AMPUL NEB ONE (14:51)
--- NOTE | 2016-09-07 17:10 | PDOC PROGRESS REPORT ---
Subjective Progress Note for:: 09/07/16 Subjective:: Patient was seen by the bedside, he has stridor like sound , racemic epinephrine is ordered Physical Exam Vital Signs: Temp Pulse Resp BP Pulse Ox 98.2 F 78 20 166/103 H 96 09/07/16 08:00 09/07/16 15:06 09/07/16 15:06 09/07/16 07:36 09/07/16 08:00 Intake & Output 09/06/16 09/07/16 09/08/16 06:59 06:59 06:59 Intake Total 2854 2654 Output Total 980 Balance 1874 2654 General appearance: PRESENT: severe distress Eye exam: PRESENT: PERRLA Respiratory exam: PRESENT: other - stridor Cardiovascular exam: PRESENT: +S1, +S2 GI/Abdominal exam: PRESENT: soft Neurological exam: PRESENT: alert Psychiatric exam: PRESENT: agitated Results Laboratory Results: 09/04/16 05:18 09/06/16 04:39 Impressions: Head CT 08/28/16 23:33 IMPRESSION: No acute findings. 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 No pneumothorax. No consolidation or pleural effusions. Lung Scan-VQ NM 08/30/16 00:00 IMPRESSION: MARKEDLY HETEROGENOUS DISTRIBUTION ON VENTILATION IMAGING CONSISTENT WITH UNDERLYING LUNG DISEASE. CORRESPONDING SUBSEGMENTAL MATCHING PERFUSION DEFECTS. NO VENTILATION-PERFUSION MISMATCH. LOW PROBABILITY OF PULMONARY EMBOLISM. Chest X-Ray 09/01/16 00:00 IMPRESSION: No acute finding. Assessment & Plan - Diagnosis (1) Aspiration pneumonia Qualifiers: Aspiration pneumonia type: unspecified Laterality: right Lung location: lower lobe of lung Qualified Code(s): J69.0 - Pneumonitis due to inhalation of food and vomit Is this a current diagnosis for this admission?: Yes (2) Parkinson disease Is this a current diagnosis for this admission?: Yes (3) Acute kidney injury Is this a current diagnosis for this admission?: Yes (4) Hypoxemia Is this a current diagnosis for this admission?: Yes (5) Stridor Is this a current diagnosis for this admission?: YesPlan: Epinephrine is ordered, it may need CT scan of the neck
[2016-09-07] MEDS: NORMAL SALINE 1000 ML 1,000 ML IV PRN (17:37)
[2016-09-07] MEDS: DIVALPROEX SODIUM 125 MG CAP.SPRINK PO SCH (22:04)
[2016-09-08] MEDS: HEPARIN SOD (PORCINE) 5,000 UNIT/ML 1 ML SYRINGE SUBCUT SCH ×3 (02:06→21:24)
[2016-09-08] MEDS: PIPERACILLIN SODIUM/TAZOBACTAM 3.375 GM in NORMAL SALINE 100 ML IV SCH ×4 (03:28→20:20)
[2016-09-08] MEDS: IPRATROPIUM/ALBUTEROL 0.5-2.5 MG/3 ML AMPUL NEB SCH ×6 (04:13→23:57)
[2016-09-08] MEDS: LORAZEPAM 0.5 MG TABLET PO PRN ×2 (06:08→21:24)
[2016-09-08] MEDS: BUPROPION HCL 75 MG TABLET PO SCH (12:47)
[2016-09-08] MEDS: RIVASTIGMINE 9.5 MG/24 HR PATCH.TD24 TD SCH (12:47)
[2016-09-08] MEDS: ATENOLOL 50 MG TABLET PO SCH ×2 (12:48→21:25)
[2016-09-08] MEDS: ASPIRIN 81 MG TABLET, ENT COATED PO SCH (12:48)
[2016-09-08] MEDS: QUETIAPINE FUMARATE 25 MG TABLET PO SCH ×2 (12:49→21:24)
[2016-09-08] MEDS: LISINOPRIL 5 MG TABLET PO SCH (12:49)
[2016-09-08] MEDS: CARBIDOPA/LEVODOPA 25-100 MG TABLET PO SCH ×4 (12:49→21:25)
[2016-09-08] MEDS: BUDESONIDE/FORMOTEROL 80-4.5 MCG 60 PUFF/6.9 GM MDI IH SCH ×2 (12:50→21:24)
--- NOTE | 2016-09-08 18:41 | PDOC PROGRESS REPORT ---
Subjective Progress Note for:: 09/08/16 Subjective:: He was seen by the bedside, he has stridor like breathing ,CT soft tissue neck was negative Physical Exam Vital Signs: Temp Pulse Resp BP Pulse Ox 97.6 F 72 20 161/81 H 98 09/08/16 15:20 09/08/16 16:18 09/08/16 16:18 09/08/16 15:20 09/08/16 16:18 Intake & Output 09/07/16 09/08/16 09/09/16 06:59 06:59 06:59 Intake Total 2654 1290 1856 Balance 2654 1290 1856 General appearance: PRESENT: severe distress Eye exam: PRESENT: PERRLA Respiratory exam: PRESENT: stridor Cardiovascular exam: PRESENT: +S1, +S2 GI/Abdominal exam: PRESENT: soft Neurological exam: PRESENT: alert Results Laboratory Results: 09/04/16 05:18 09/06/16 04:39 Impressions: Head CT 08/28/16 23:33 IMPRESSION: No acute findings. 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 No pneumothorax. No consolidation or pleural effusions. Lung Scan-VQ NM 08/30/16 00:00 IMPRESSION: MARKEDLY HETEROGENOUS DISTRIBUTION ON VENTILATION IMAGING CONSISTENT WITH UNDERLYING LUNG DISEASE. CORRESPONDING SUBSEGMENTAL MATCHING PERFUSION DEFECTS. NO VENTILATION-PERFUSION MISMATCH. LOW PROBABILITY OF PULMONARY EMBOLISM. Chest X-Ray 09/01/16 00:00 IMPRESSION: No acute finding. Assessment & Plan - Diagnosis (1) Aspiration pneumonia Qualifiers: Aspiration pneumonia type: unspecified Laterality: right Lung location: lower lobe of lung Qualified Code(s): J69.0 - Pneumonitis due to inhalation of food and vomit Is this a current diagnosis for this admission?: Yes (2) Parkinson disease Is this a current diagnosis for this admission?: Yes (3) Acute kidney injury Is this a current diagnosis for this admission?: Yes (4) Hypoxemia Is this a current diagnosis for this admission?: Yes (5) Stridor Is this a current diagnosis for this admission?: Yes - Plan Summary Plan Summary: treat with racemic epi
--- NOTE | 2016-09-08 19:57 | RADIOLOGY REPORT (SQ) ---
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 TECHNIQUE: Post IV contrasted scanning from skull base through lung apices with review of bone, soft tissue and lung windows. Reconstructed coronal and sagittal MPR images reviewed. All images stored on PACS. All CT scanners at this facility use dose modulation, iterative reconstruction, and/or weight based d osing when appropriate to reduce radiation dose to as low as reasonably achievable (ALARA). [facility]: Dose Right [facility]: CareDose [facility]: Dose Right [facility]: Teradose 4D [facility]: Templafy CONTRAST TYPE AND DOSE: contrast/concentration: Isovue 370.00 mg/ml; Total Contrast Delivered: 75.0 ml; Total Saline Delivered: 50.0 ml 75 Isovue 370- low osmolar. RENAL FUNCTION: Creatinine 1.05 RADIATION DOSE: 21.98 . LIMITATIONS: Study is limited somewhat due to motion artifact FINDINGS: SKULL BASE: Intact. MAJOR SALIVARY GLANDS: No solid or cystic masses. No inflammatory changes. LYMPHADENOPATHY: No adenopathy. MUCOSAL MASSES OR ASYMMETRY: No mucosal masses or asymmetry. LARYNX/CORDS: No abnormal findings. VASCULAR STRUCTURES: The major vessels are patent. LUNG APICES: Clear. BONES: Intact. THYROID: Normal size. No masses. PARANASAL SINUSES: Clear. OTHER: No other significant finding. IMPRESSION: NO SIGNIFICANT FINDING IN THE SOFT TISSUES OF THE NECK. TECHNICAL DOCUMENTATION: JOB ID: [id number] Quality ID # [id number]: Final reports with documentation of one or more dose reduction techniques (e.g., Au tomated exposure control, adjustment of the mA and/or kV according to patient size, use of iterative reconstruction technique) 2010 [email or web address]- All Rights Reserved
[2016-09-08] MEDS: DIVALPROEX SODIUM 125 MG CAP.SPRINK PO SCH (21:24)
[2016-09-09] MEDS: PIPERACILLIN SODIUM/TAZOBACTAM 3.375 GM in NORMAL SALINE 100 ML IV SCH ×4 (03:51→21:43)
[2016-09-09] MEDS: HEPARIN SOD (PORCINE) 5,000 UNIT/ML 1 ML SYRINGE SUBCUT SCH ×3 (03:57→21:43)
[2016-09-09] MEDS: IPRATROPIUM/ALBUTEROL 0.5-2.5 MG/3 ML AMPUL NEB SCH ×6 (04:03→23:57)
[2016-09-09] MEDS: LORAZEPAM 0.5 MG TABLET PO PRN (06:27)
[2016-09-09] MEDS: NORMAL SALINE 1000 ML 1,000 ML IV PRN ×2 (10:03→21:44)
[2016-09-09] MEDS: QUETIAPINE FUMARATE 25 MG TABLET PO SCH ×2 (10:04→21:43)
[2016-09-09] MEDS: LISINOPRIL 5 MG TABLET PO SCH (10:04)
[2016-09-09] MEDS: ATENOLOL 50 MG TABLET PO SCH ×2 (10:05→21:43)
[2016-09-09] MEDS: RIVASTIGMINE 9.5 MG/24 HR PATCH.TD24 TD SCH (10:05)
[2016-09-09] MEDS: CARBIDOPA/LEVODOPA 25-100 MG TABLET PO SCH ×4 (10:05→21:43)
[2016-09-09] MEDS: BUPROPION HCL 75 MG TABLET PO SCH (10:05)
[2016-09-09] MEDS: ASPIRIN 81 MG TABLET, ENT COATED PO SCH (10:05)
[2016-09-09] MEDS: BUDESONIDE/FORMOTEROL 80-4.5 MCG 60 PUFF/6.9 GM MDI IH SCH ×2 (10:06→21:45)
--- NOTE | 2016-09-09 18:52 | PDOC PROGRESS REPORT ---
Subjective Progress Note for:: 09/09/16 Subjective:: Patient's condition is about the same he does not communicate because of dementia ,CT of the chest will be ordered tomorrow Physical Exam Vital Signs: Temp Pulse Resp BP Pulse Ox 97.4 F 75 20 149/97 H 96 09/09/16 16:00 09/09/16 16:08 09/09/16 16:08 09/09/16 16:00 09/09/16 16:08 Intake & Output 09/08/16 09/09/16 09/10/16 06:59 06:59 06:59 Intake Total 1290 3256 2791 Balance 1290 3256 2791 General appearance: PRESENT: no acute distress Eye exam: PRESENT: PERRLA Respiratory exam: PRESENT: crackles Cardiovascular exam: PRESENT: +S1, +S2 GI/Abdominal exam: PRESENT: soft Results Laboratory Results: 09/04/16 05:18 09/06/16 04:39 Impressions: Head CT 08/28/16 23:33 IMPRESSION: No acute findings. 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 No pneumothorax. No consolidation or pleural effusions. Lung Scan-VQ NM 08/30/16 00:00 IMPRESSION: MARKEDLY HETEROGENOUS DISTRIBUTION ON VENTILATION IMAGING CONSISTENT WITH UNDERLYING LUNG DISEASE. CORRESPONDING SUBSEGMENTAL MATCHING PERFUSION DEFECTS. NO VENTILATION-PERFUSION MISMATCH. LOW PROBABILITY OF PULMONARY EMBOLISM. Chest X-Ray 09/01/16 00:00 IMPRESSION: No acute finding. Soft Tissue Neck CT 09/08/16 00:00 IMPRESSION: NO SIGNIFICANT FINDING IN THE SOFT TISSUES OF THE NECK. Assessment & Plan - Diagnosis (1) Aspiration pneumonia Qualifiers: Aspiration pneumonia type: unspecified Laterality: right Lung location: lower lobe of lung Qualified Code(s): J69.0 - Pneumonitis due to inhalation of food and vomit Is this a current diagnosis for this admission?: Yes (2) Parkinson disease Is this a current diagnosis for this admission?: Yes (3) Acute kidney injury Is this a current diagnosis for this admission?: Yes (4) Hypoxemia Is this a current diagnosis for this admission?: Yes (5) Stridor Is this a current diagnosis for this admission?: Yes - Plan Summary Plan Summary: continue treatment
[2016-09-09] MEDS: DIVALPROEX SODIUM 125 MG CAP.SPRINK PO SCH (21:43)
[2016-09-10] MEDS: PIPERACILLIN SODIUM/TAZOBACTAM 3.375 GM in NORMAL SALINE 100 ML IV SCH ×4 (03:21→21:42)
[2016-09-10] MEDS: IPRATROPIUM/ALBUTEROL 0.5-2.5 MG/3 ML AMPUL NEB SCH ×6 (04:29→23:50)
[2016-09-10] MEDS: HEPARIN SOD (PORCINE) 5,000 UNIT/ML 1 ML SYRINGE SUBCUT SCH ×3 (06:36→21:42)
[2016-09-10] MEDS: LISINOPRIL 5 MG TABLET PO SCH (09:18)
[2016-09-10] MEDS: QUETIAPINE FUMARATE 25 MG TABLET PO SCH ×2 (09:19→21:42)
[2016-09-10] MEDS: ASPIRIN 81 MG TABLET, ENT COATED PO SCH (09:19)
[2016-09-10] MEDS: CARBIDOPA/LEVODOPA 25-100 MG TABLET PO SCH ×4 (09:20→21:42)
[2016-09-10] MEDS: ATENOLOL 50 MG TABLET PO SCH ×2 (09:20→21:42)
[2016-09-10] MEDS: BUPROPION HCL 75 MG TABLET PO SCH (09:21)
[2016-09-10] MEDS: RIVASTIGMINE 9.5 MG/24 HR PATCH.TD24 TD SCH (09:21)
[2016-09-10] MEDS: BUDESONIDE/FORMOTEROL 80-4.5 MCG 60 PUFF/6.9 GM MDI IH SCH ×2 (09:22→21:42)
[2016-09-10 12:10] LABS: ABSOLUTE EOSINOPHILS # (AUTO) 0.3 10^3/uL (0.0-0.6); ABSOLUTE LYMPHOCYTES (AUTO) 0.5 10^3/uL (0.5-4.7); ABSOLUTE MONOCYTES (AUTO) 0.3 10^3/uL (0.1-1.4); ABSOLUTE NEUT (AUTO) 2.2 10^3/uL (1.7-8.2); BASOPHILS % (AUTO) 1.1 % (0-2); EOSINOPHILS % (AUTO) 9.1 % (0-6); HEMATOCRIT 33.2 % (37.9-51.0); HEMOGLOBIN 10.9 g/dL (13.5-17.0); HGB HCT DIFFERENCE -0.5; LYMPHOCYTES % (AUTO) 14.4 % (13-45); MEAN CORPUSCULAR HEMOGLOBIN 34.3 pg (27.0-33.4); MEAN CORPUSCULAR HGB CONC 32.7 g/dL (32.0-36.0); MEAN CORPUSCULAR VOLUME 105 fl (80-97); MONOCYTES % (AUTO) 9.6 % (3-13); RED BLOOD COUNT 3.17 10^6/uL (4.35-5.55); RED CELL DISTRIBUTION WIDTH 13.8 % (11.5-14.0); SEGMENTED NEUTROPHILS % (AUTO) 65.8 % (42-78); WHITE BLOOD COUNT 3.3 10^3/uL (4.0-10.5)
[2016-09-10 12:30] LABS: ALANINE AMINOTRANSFERASE 26 U/L (21-72); ALBUMIN 3.4 g/dL (3.5-5.0); ALKALINE PHOSPHATASE 66 U/L (38-126); ANION GAP 11 (5-19); ASPARTATE AMINO TRANSFERASE 23 U/L (17-59); BILIRUBIN,DIRECT 0.3 mg/dL (0.0-0.4); BILIRUBIN,TOTAL 0.6 mg/dL (0.2-1.3); BLOOD UREA NITROGEN 8 mg/dL (7-20); CALCIUM 8.3 mg/dL (8.4-10.2); CARBON DIOXIDE 24 mmol/L (22-30); CHLORIDE 104 mmol/L (98-107); CREATININE RESULT 0.93 mg/dL (0.52-1.25); GLUCOSE 93 mg/dL (75-110); POTASSIUM 3.8 mmol/L (3.6-5.0); SODIUM 139.1 mmol/L (137-145); TOTAL PROTEIN 5.9 g/dL (6.3-8.2)
--- NOTE | 2016-09-10 15:06 | PDOC PROGRESS REPORT ---
Subjective Progress Note for:: 09/10/16 Subjective:: CT scan of the chest was done today, it showed resolution of the pneumonia Physical Exam Vital Signs: Temp Pulse Resp BP Pulse Ox 97.4 F 78 22 H 161/98 H 99 09/10/16 12:00 09/10/16 12:00 09/10/16 12:00 09/10/16 12:00 09/10/16 12:00 Intake & Output 09/09/16 09/10/16 09/11/16 06:59 06:59 06:59 Intake Total 3256 4231 Balance 3256 4231 General appearance: PRESENT: no acute distress Eye exam: PRESENT: PERRLA Respiratory exam: PRESENT: clear to auscultation kalen Cardiovascular exam: PRESENT: +S1, +S2 GI/Abdominal exam: PRESENT: soft Neurological exam: PRESENT: alert Results Laboratory Results: 09/10/16 11:45 09/10/16 11:45 09/10/16 09/10/16 11:45 11:45 WBC 3.3 L RBC 3.17 L Hgb 10.9 L Hct 33.2 L MCV 105 H MCH 34.3 H MCHC 32.7 RDW 13.8 Plt Count 154 Seg Neutrophils % 65.8 Lymphocytes % 14.4 Monocytes % 9.6 Eosinophils % 9.1 H Basophils % 1.1 Absolute Neutrophils 2.2 Absolute Lymphocytes 0.5 Absolute Monocytes 0.3 Absolute Eosinophils 0.3 Absolute Basophils 0.0 Sodium 139.1 Potassium 3.8 Chloride 104 Carbon Dioxide 24 Anion Gap 11 BUN 8 Creatinine 0.93 Est GFR ( Amer) > 60 Est GFR (Non-Af Amer) > 60 Glucose 93 Calcium 8.3 L Total Bilirubin 0.6 AST 23 ALT 26 Alkaline Phosphatase 66 Total Protein 5.9 L Albumin 3.4 L Impressions: Head CT 08/28/16 23:33 IMPRESSION: No acute findings. 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 No pneumothorax. No consolidation or pleural effusions. Lung Scan-VQ NM 08/30/16 00:00 IMPRESSION: MARKEDLY HETEROGENOUS DISTRIBUTION ON VENTILATION IMAGING CONSISTENT WITH UNDERLYING LUNG DISEASE. CORRESPONDING SUBSEGMENTAL MATCHING PERFUSION DEFECTS. NO VENTILATION-PERFUSION MISMATCH. LOW PROBABILITY OF PULMONARY EMBOLISM. Chest X-Ray 09/01/16 00:00 IMPRESSION: No acute finding. Soft Tissue Neck CT 09/08/16 00:00 IMPRESSION: NO SIGNIFICANT FINDING IN THE SOFT TISSUES OF THE NECK. Assessment & Plan - Diagnosis (1) Aspiration pneumonia Qualifiers: Aspiration pneumonia type: unspecified Laterality: right Lung location: lower lobe of lung Qualified Code(s): J69.0 - Pneumonitis due to inhalation of food and vomit Is this a current diagnosis for this admission?: Yes (2) Parkinson disease Is this a current diagnosis for this admission?: Yes (3) Acute kidney injury Is this a current diagnosis for this admission?: Yes (4) Hypoxemia Is this a current diagnosis for this admission?: Yes (5) Stridor Is this a current diagnosis for this admission?: YesPlan: Patient will probably be discharged to custodial tomorrow
--- NOTE | 2016-09-10 15:46 | RADIOLOGY REPORT (SQ) ---
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 Images reviewed with lung, soft tissue and bone windows. Reconstructed coronal and sagittal MPR images reviewed. All images st ored on PACS. All CT scanners at this facility use dose modulation, iterative reconstruction, and/or weight based d osing when appropriate to reduce radiation dose to as low as reasonably achievable (ALARA). [facility]: Dose Right [facility]: CareDose [facility]: Dose Right [facility]: Teradose 4D [facility]: [employer] RADIATION DOSE: Up-to-date CT equipment and radiation dose reduction techniques were employed. CTDIv ol: 13.3 mGy. DLP: 525 mGy-cm. mGy. LIMITATIONS: No technical limitations. FINDINGS: LUNGS AND PLEURA: Small bilateral pleural effusions with minimal basilar atelectasis. No pneumothorax. HILAR AND MEDIASTINAL STRUCTURES: No identified masses or abnormal nodes. No obvious aneurysm. HEART AND VASCULAR STRUCTURES: No aneurysm. No pericardial effusion. Moderate coronary artery calci fication. UPPER ABDOMEN: Marked constipation. THYROID AND OTHER SOFT TISSUES: No masses. No adenopathy. BONES: No significant finding. HARDWARE: None in the chest. OTHER: No other significant findings. IMPRESSION: Small bilateral pleural effusions with basilar atelectasis. Marked constipation. TECHNICAL DOCUMENTATION: JOB ID: [id number] Quality ID # [id number]: Final reports with documentation of one or more dose reduction techniques (e.g., Au tomated exposure control, adjustment of the mA and/or kV according to patient size, use of iterative reconstruction technique) 2010 [employer]- All Rights Reserved
[2016-09-10] MEDS: DIVALPROEX SODIUM 125 MG CAP.SPRINK PO SCH (21:42)
[2016-09-11] MEDS: PIPERACILLIN SODIUM/TAZOBACTAM 3.375 GM in NORMAL SALINE 100 ML IV SCH ×3 (03:11→15:21)
[2016-09-11] MEDS: IPRATROPIUM/ALBUTEROL 0.5-2.5 MG/3 ML AMPUL NEB SCH ×4 (04:09→15:35)
[2016-09-11] MEDS: HEPARIN SOD (PORCINE) 5,000 UNIT/ML 1 ML SYRINGE SUBCUT SCH ×2 (06:09→15:17)
[2016-09-11] MEDS: LISINOPRIL 5 MG TABLET PO SCH (10:34)
[2016-09-11] MEDS: ASPIRIN 81 MG TABLET, ENT COATED PO SCH (10:34)
[2016-09-11] MEDS: BUDESONIDE/FORMOTEROL 80-4.5 MCG 60 PUFF/6.9 GM MDI IH SCH (10:35)
[2016-09-11] MEDS: ATENOLOL 50 MG TABLET PO SCH (10:35)
[2016-09-11] MEDS: CARBIDOPA/LEVODOPA 25-100 MG TABLET PO SCH ×2 (10:36→15:16)
[2016-09-11] MEDS: QUETIAPINE FUMARATE 25 MG TABLET PO SCH (10:36)
[2016-09-11] MEDS: BUPROPION HCL 75 MG TABLET PO SCH (10:36)
[2016-09-11] MEDS: RIVASTIGMINE 9.5 MG/24 HR PATCH.TD24 TD SCH (10:37)
--- NOTE | 2016-09-11 12:13 | PDOC TRANSFER SUMMARY ---
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 Is this a current diagnosis for this admission?: Yes - Additional Information Resuscitation Status: Do Not Resuscitate Home Medications: Acetaminophen [Tylenol 325 mg Tablet] 650 mg PO Q6HP PRN 08/29/16 Albuterol Sulfate [Ventolin HFA MDI 18 GM] 1 puff IH Q4HP PRN 08/29/16 Aspirin [Aspirin EC] 81 mg PO DAILY 08/29/16 Budesonide/Formoterol Fumarate [Symbicort HFA 80-4.5 mcg Inhaler 6.9 gm] 2 puff IH Q12 08/29/16 Bupropion HCl [Wellbutrin 75 mg Tablet] 75 mg PO DAILY 08/29/16 Carbidopa/Levodopa [Sinemet 25-100 mg Tablet] 1.5 each PO QID 08/29/16 Divalproex Sodium [Depakote] 125 mg PO QHS 08/29/16 Lisinopril [Prinivil 5 mg Tablet] 5 mg PO DAILY 08/29/16 Melatonin [Melatin] 3 mg PO QHS 08/29/16 Rivastigmine [Exelon 9.5 mg/24 Hr Transdermal Patch] 1 each TD DAILY 08/29/16 Ipratropium/Albuterol Sulfate [Duoneb 3 ml Ampul] 3 ml NEB RTQ4 PRN #0 vial.neb 09/11/16 Metoprolol Succinate [Toprol XL 100 mg Tablet] 100 mg PO DAILY #0 tab.sr.24h Quetiapine Fumarate [Seroquel Xr] 200 mg PO DAILY #0 tab.er.24h 09/11/16 History of Present Illness Admission Date/PCP: 08/31/16 11:30 RADHA MOZIE History of Present Illness: ESTHER VILLALTA is a 76 year old male,he has a history of dementia and parkinson 's disease . He was discharged from this hospital on 08/17/2016 he [facility] room because of agitation and confusion and he was poorly responsive. No history could be obtained from the patient is very advanced dementia, I reviewed the records from the emergency room. The record stated that patient was trying to get out of the wheelchair and his legs was very weak and shaky. He was found to have bradycardia in the emergency room that was also elevated serum creatinine of 2 the last time he was discharged the serum creatinine was 1.1 by, this is most likely prerenal acute kidney injury rather than intrinsic kidney disease.. When I saw the patient in the hospital on the medical floor, on auscultation of the chest that was audible wheeze in both lung jaramillo. CT chest was done without contrast, demonstrated multiple small 2 mm nodules in the posterior and lateral basilar segments of the left lower lobe which was new since the previous study, there is no pneumothorax there is no consolidation or pleural effusions. Diagnosis included embolization because of the possibility of embolization if VQ scan was normal. VQ scan showed markedly heterogeneous distribution of the DPTA aeroso during ventilatory phase. multiple subsegmental areas of decreased ventilation. There was no ventilation perfusion mismatch, the VQ scan is consistent with a low probability for pulmonary embolism. Echo on 02/29/2016 demonstrated ejection fraction of the left ventricle was 45-50%, the echocardiogram also demonstrated severe pulmonary hypertension. Hospital Course Hospital Course: Patient was admitted for evaluation of aspiration pneumonia, there was associated hypoxemia, acute kidney injury, prerenal. He was treated with IV antibiotic with good response he had episode of stridor in the hospital, CT scan of the neck was done, it was negative for any acute pathology. He required DuoNeb nebulizer treatment because of the stridor like respiration, he has severe dementia with Parkinson disease this was challenging for the management of this patient. There was of agitation in the hospital requiring soft restrains. He is presently medically optimized, the plan is to refer him back to [facility] for continued rehabilitation. CT scan Chest without contrast was done on 08/29/2016 demonstrated multiple 4-6 mm nodule in the posterior and lateral basilar segment of the right lower lobe, the CAT scan that was done yesterday demonstrated complete resolution of the lesions. Physical Exam Vital Signs: Temp Pulse Resp BP Pulse Ox 98.5 F 80 18 153/92 H 99 09/11/16 08:00 09/11/16 11:10 09/11/16 11:10 09/11/16 08:00 09/11/16 08:00 Intake & Output 09/10/16 09/11/16 09/12/16 06:59 06:59 06:59 Intake Total 4231 1793 Balance 4231 1793 General appearance: PRESENT: no acute distress Eye exam: PRESENT: PERRLA Respiratory exam: PRESENT: clear to auscultation kalen Cardiovascular exam: PRESENT: +S1, +S2 GI/Abdominal exam: PRESENT: soft, other - Hypertonicity of extremities, abdominal wall Neurological exam: PRESENT: alert, other Psychiatric exam: PRESENT: agitated, flat affect, other Results Laboratory Results: 09/10/16 11:45 09/10/16 11:45 09/10/16 09/10/16 11:45 11:45 WBC 3.3 L RBC 3.17 L Hgb 10.9 L Hct 33.2 L MCV 105 H MCH 34.3 H MCHC 32.7 RDW 13.8 Plt Count 154 Seg Neutrophils % 65.8 Lymphocytes % 14.4 Monocytes % 9.6 Eosinophils % 9.1 H Basophils % 1.1 Absolute Neutrophils 2.2 Absolute Lymphocytes 0.5 Absolute Monocytes 0.3 Absolute Eosinophils 0.3 Absolute Basophils 0.0 Sodium 139.1 Potassium 3.8 Chloride 104 Carbon Dioxide 24 Anion Gap 11 BUN 8 Creatinine 0.93 Est GFR ( Amer) > 60 Est GFR (Non-Af Amer) > 60 Glucose 93 Calcium 8.3 L Total Bilirubin 0.6 AST 23 ALT 26 Alkaline Phosphatase 66 Total Protein 5.9 L Albumin 3.4 L Impressions: Head CT 08/28/16 23:33 IMPRESSION: No acute findings. Lung Scan-VQ NM 08/30/16 00:00 IMPRESSION: MARKEDLY HETEROGENOUS DISTRIBUTION ON VENTILATION IMAGING CONSISTENT WITH UNDERLYING LUNG DISEASE. CORRESPONDING SUBSEGMENTAL MATCHING PERFUSION DEFECTS. NO VENTILATION-PERFUSION MISMATCH. LOW PROBABILITY OF PULMONARY EMBOLISM. Chest X-Ray 09/01/16 00:00 IMPRESSION: No acute finding. Soft Tissue Neck CT 09/08/16 00:00 IMPRESSION: NO SIGNIFICANT FINDING IN THE SOFT TISSUES OF THE NECK. Chest CT 09/10/16 00:00 IMPRESSION: Small bilateral pleural effusions with basilar atelectasis. Marked constipation.
[2016-09-11 14:35] VITALS: BP 159/91
== END 2016-09-11 16:15 | disposition home or self-care (01) | DRG 178 ==
LOC: ER 23:19 → UNDOADMOB 08-29 02:27 → EH 08-29 02:27 → 4N 08-29 03:50 → EH 08-29 03:50 → 4N 08-29 04:27 → EH 08-29 04:27 → 4N 08-29 16:00 → OBSVTOIN 08-31 11:30
PROVIDERS: ADMIT Internal Medicine; ATTEND Internal Medicine
DX: J69.0 Pneumonitis due to inhalation of food and vomit (principal); N17.9 Acute kidney failure, unspecified; R06.1 Stridor; R00.1 Bradycardia, unspecified; R09.02 Hypoxemia; G20 Parkinson's disease; F02.80 Dementia in other diseases classified elsewhere, unspecified severity, without behavioral disturbance, psychotic disturbance, mood disturbance, and anxiety; Z66 Do not resuscitate; I10 Essential (primary) hypertension; Z79.82 Long term (current) use of aspirin; Z79.899 Other long term (current) drug therapy; Z86.711 Personal history of pulmonary embolism; Z86.14 Personal history of Methicillin resistant Staphylococcus aureus infection; Z88.8 Allergy status to other drugs, medicaments and biological substances
CPT/HCPCS: 36415; 36600; 70450; 70491; 71010; 71020; 71250; 78582; 80048; 80053; 81001; 82550; 82553; 82565; 82803; 83735; 84484; 85025; 85027; 85610; 85730; 93005; 93010; 99285; A9540; A9567; G0378; G8978-GP; G8979-GP; J1644; J2543; J3490; J7030; J7620; Q9969

== ENCOUNTER 2016-10-29 02:50 | Emergency (ER) | payer MEDICARE, OTHER ==
--- NOTE | 2016-10-29 03:50 | RADIOLOGY REPORT (SQ) ---
EXAM DESCRIPTION: CT HEAD WITHOUT COMPLETED DATE/TIME: 10/29/2016 3:16 am REASON FOR STUDY: fall with head injury COMPARISON: 08/29/2016. TECHNIQUE: Axial images acquired through the brain without intravenous contrast. Images reviewed wi th bone, brain and subdural windows. Images stored on PACS. All CT scanners at this facility use dose modulation, iterative reconstruction, and/or weight based d osing when appropriate to reduce radiation dose to as low as reasonably achievable (ALARA). [facility]: Dose Right [facility]: CareDose [facility]: Dose Right [facility]: Teradose 4D [facility]: [employer] RADIATION DOSE: Up-to-date CT equipment and radiation dose reduction techniques were employed. CTDIv ol: 64.6 mGy. DLP: 2430 mGy-cm. mGy. LIMITATIONS: Mild motion -streak artifact. FINDINGS: VENTRICLES: Normal size and contour. CEREBRUM: No masses. No hemorrhage. No midline shift. Normal jo/white matter differentiation. N o evidence for acute infarction. Mild white matter microangiopathy pattern. CEREBELLUM: No masses. No hemorrhage. No alteration of density. No evidence for acute infarction. EXTRAAXIAL SPACES: No fluid collections. No masses. ORBITS AND GLOBE: No intra- or extraconal masses. Normal contour of globe without masses. Atheroscl erosis. CALVARIUM: No fracture. PARANASAL SINUSES: No fluid or mucosal thickening. SOFT TISSUES: No mass or hematoma. OTHER: No other significant finding. IMPRESSION: No acute findings. TECHNICAL DOCUMENTATION: JOB ID: [id number] Quality ID # [id number]: Final reports with documentation of one or more dose reduction techniques (e.g., Au tomated exposure control, adjustment of the mA and/or kV according to patient size, use of iterative reconstruction technique) 2010 [employer]- All Rights Reserved
--- NOTE | 2016-10-29 03:55 | RADIOLOGY REPORT (SQ) ---
EXAM DESCRIPTION: CT CERVICAL SPINE WITHOUT COMPLETED DATE/TIME: 10/29/2016 3:16 am REASON FOR STUDY: fall with head injury COMPARISON: None. TECHNIQUE: Axial images acquired through the cervical spine without intravenous contrast. Images re viewed with lung, soft tissue and bone windows. Reconstructed coronal and sagittal MPR images review ed. Images stored on PACS. All CT scanners at this facility use dose modulation, iterative reconstruction, and/or weight based d osing when appropriate to reduce radiation dose to as low as reasonably achievable (ALARA). [facility]: Dose Right [facility]: CareDose [facility]: Dose Right [facility]: Teradose 4D [facility]: [employer] RADIATION DOSE: Up-to-date CT equipment and radiation dose reduction techniques were employed. CTDIv ol: 13.9 mGy. DLP: 281 mGy-cm. mGy. LIMITATIONS: None. FINDINGS: ALIGNMENT: 0.2 cm degenerative C2 and C3 retrolisthesis and 0.2 cm C6 degenerative anterol isthesis, chronic. MINERALIZATION: Normal. VERTEBRAL BODIES: No fractures or dislocation. Chronic vessel related cortical defect artifact at ba se of the dens. Mild chronic endplate irregularity at the C2-C3 level, likely developmental. DISCS: Uneh-rr-sghjpwle disc desiccation and bulge worse at the C6-C7 level causing mild spinal canal stenosis. FACETS, LATERAL MASSES, POSTERIOR ELEMENTS: Posterior fusion variant at C7-T1, stable. Moderate-segun re bilateral C4 bony foraminal stenosis due to with small-moderate disc desiccation and kfhh-ch-pkqkm ate spondylosis. HARDWARE: None in the spine. VISUALIZED RIBS: No fractures. LUNG APICES AND SOFT TISSUES: No significant or acute findings. OTHER: No other significant finding. IMPRESSION: No acute findings. Mild degenerative malalignment. Moderate C6-C7 desiccated disc bulg e with mild spinal canal stenosis. Degenerative, moderate-severe bilateral C4 foraminal stenosis. TECHNICAL DOCUMENTATION: JOB ID: [id number] Quality ID # [id number]: Final reports with documentation of one or more dose reduction techniques (e.g., Au tomated exposure control, adjustment of the mA and/or kV according to patient size, use of iterative reconstruction technique) 2010 [employer]- All Rights Reserved
--- NOTE | 2016-10-29 04:17 | ER Document Report ---
ED General - General Chief Complaint: Fall Injury Stated Complaint: FALL/HEAD INJURY Time Seen by Provider: 10/29/16 03:45 Cannot obtain history due to: Dementia Notes: Patient is a 76-year-old male nonverbal at baseline who presents after apparently being found on the ground at his nursing facility. No additional history can be obtained due to his baseline dementia and nonverbal status TRAVEL OUTSIDE OF THE [place] IN LAST 30 DAYS: No - Related Data Allergies/Adverse Reactions: hydrochlorothiazide [Hydrochlorothiazide] Allergy (Intermediate, Verified 03:05) Rash Past Medical History - General Information source: Relative Cannot obtain history due to: Dementia - Social History Smoking Status: Unknown if Ever Smoked Lives with: Prison Family History: COPD, Hyperlipidemia, Hypertension - Past Medical History Cardiac Medical History: Reports: Hx Hypertension, Hx Pulmonary Embolism Denies: Hx Coronary Artery Disease, Hx Heart Attack, Hx Hypercholesterolemia Pulmonary Medical History: Reports: Hx Asthma, Hx COPD Denies: Hx Bronchitis Neurological Medical History: Denies: Hx Seizures Endocrine Medical History: Denies: Hx Diabetes Mellitus Type 1, Hx Diabetes Mellitus Type 2, Hx Hyperthyroidism, Hx Hypothyroidism Renal/ Medical History: Reports: Hx Renal Insufficiency. Denies: Hx Peritoneal Dialysis GI Medical History: Denies: Hx Cirrhosis, Hx Gastroesophageal Reflux Disease, Hx Hepatitis Musculoskeltal Medical History: Denies Hx Arthritis Skin Medical History: Denies Hx Eczema, Denies Hx Psoriasis Psychiatric Medical History: Reports: Hx Dementia Denies: Hx Depression Infectious Medical History: Reports: Hx C-Diff, Hx MRSA. Denies: Hx Hepatitis Past Surgical History: Reports: Hx Herniorrhaphy. Denies: Hx Pacemaker - Immunizations Hx Diphtheria, Pertussis, Tetanus Vaccination: Yes Hx Pneumococcal Vaccination: 12/22/08 Review of Systems - Review of Systems -: Yes ROS unobtainable due to patient's medical condition Physical Exam - Vital signs Vitals: Temp Pulse Resp BP Pulse Ox 97.3 F 68 16 189/108 H 95 10/29/16 02:59 10/29/16 02:59 10/29/16 02:59 10/29/16 02:59 10/29/16 02:59 Interpretation: Hypertensive Notes: PHYSICAL EXAMINATION: GENERAL: Frail, elderly, no acute distress HEAD: Atraumatic, normocephalic. EYES: Pupils equal round and reactive to light, extraocular movements intact, sclera anicteric, conjunctiva are normal. ENT: nares patent, no oral pharyngeal trauma. No hemotympanum, no Sepulveda's sign , no raccoon eyes. NECK: No midline cervical spine tenderness. Patient able to move their head to 45 bilaterally LUNGS: Breath sounds clear to auscultation bilaterally and equal. No wheezes rales or rhonchi. HEART: Regular rate and rhythm without murmurs. CHEST WALL: No ecchymosis over the chest wall. ABDOMEN: Soft, nontender, normoactive bowel sounds. No guarding, no rebound. No abdominal bruising EXTREMITIES: Normal range of motion, no pitting or edema. No long bone deformities. There is a subungual hematoma in the distal aspect of the right thumb BACK: No midline spinal tenderness, step-offs, or deformities. NEUROLOGICAL: Moves all extremities spontaneously PSYCH: Nonverbal SKIN: Warm, Dry, normal turgor, no rashes or lesions noted. Course - Re-evaluation Re-evalutation: 10/29/16 04:12 Presentation of a frail elderly patient in no acute distress, vitals within normal limits after an unwitnessed fall. Non-verbal at baseline. No focal neurologic deficits on exam, no evidence of basilar skull fracture on exam without evidence of hemotympanum, raccoon eyes, or periauricular hematoma. No papilledema. Patient is anticoagulated. GCS is 15. No loss of consciousness. No episodes of vomiting. However, based on patient's age a CT of the head has been obtained which is negative for any acute intracranial bleed. Likewise , patient was unable to be clinically cleared due to age by [place] cervical spine criteria. A CT of the cervical spine was also obtained and likewise is negative for any acute fracture. No indication for further imaging of the cervical spine. Patient has no focal deformities or limited range of motion in any joint space. Chest and abdominal exam are benign without any focal tenderness, apparent shortness of breath, or bruising over the chest or abdominal wall. Patient has no flank tenderness. There is no obvious findings on trauma exam today and therefore no further imaging or evaluation will be obtained at this time. At this time will discharge with return precautions and follow-up recommendations. Verbal discharge instructions given a the bedside and opportunity for questions given. at bedside is in agreement with this plan and has verbalized understanding of return precautions and the need for primary care follow-up in the next 24-72 hours. - Vital Signs Vital signs: Temp Pulse Resp BP Pulse Ox 97.3 F 68 16 179/118 H 88 L 10/29/16 02:59 10/29/16 02:59 10/29/16 02:59 10/29/16 04:00 10/29/16 04:45 - Diagnostic Test Radiology reviewed: Image reviewed, Reports reviewed Radiology results interpreted by me: 10/29/16 04:15 CT head: No acute intracranial bleed Discharge - Discharge Clinical Impression: Fall Qualifiers: Encounter type: initial encounter Qualified Code(s): W19.XXXA - Unspecified fall, initial encounter Injury of thumb, right, superficial Qualifiers: Encounter type: initial encounter Qualified Code(s): S60.931A - Unspecified superficial injury of right thumb, initial encounter Disposition: HOME, SELF-CARE Additional Instructions: CT of the head and cervical spine are normal today. The patient does have a small subungual hematoma on the right thumb. Trauma assessment is otherwise normal. Referrals: RADHA ANDREA MD [Primary Care Provider] - Follow up as needed
[2016-10-29 04:59] VITALS: BP 179/118
== END 2016-10-29 05:14 | disposition home or self-care (01) ==
LOC: ER 02:50
DX: S09.90XA Unspecified injury of head, initial encounter (principal); F03.90 Unspecified dementia, unspecified severity, without behavioral disturbance, psychotic disturbance, mood disturbance, and anxiety; X58.XXXA Exposure to other specified factors, initial encounter; I10 Essential (primary) hypertension; J44.9 Chronic obstructive pulmonary disease, unspecified; J45.909 Unspecified asthma, uncomplicated; Z86.711 Personal history of pulmonary embolism; Z86.14 Personal history of Methicillin resistant Staphylococcus aureus infection
CPT/HCPCS: 70450; 72125; 82962; 99285

== ENCOUNTER 2016-10-29 10:07 | Emergency (ER) | payer MEDICARE, OTHER ==
--- NOTE | 2016-10-29 10:34 | ER Document Report ---
ED Fall - General Chief Complaint: Fall Stated Complaint: FALL/HEAD INJURY Time Seen by Provider: 10/29/16 10:22 TRAVEL OUTSIDE OF THE [place] IN LAST 30 DAYS: No - HPI Patient complains to provider of: fall Occurred: Just prior to arrival Notes: Demented patient presents from half-way after another fall. Patient had a fall yesterday morning seen in this emergency department had a CAT scan head neck performed all negative. Patient again is going to the bathroom this morning had a witnessed fall striking the right side of his face against the wall. Patient has no complaints at this time but is unreliable given his advanced dementia. Patient does have swelling on the right side of his face located lateral to his eye and just superior - Related data Allergies/Adverse Reactions: hydrochlorothiazide [Hydrochlorothiazide] Allergy (Intermediate, Verified 03:05) Rash Past Medical History - Social History Smoking Status: Unknown if Ever Smoked Family History: COPD, Hyperlipidemia, Hypertension Patient has suicidal ideation: No Patient has homicidal ideation: No - Past Medical History Cardiac Medical History: Reports: Hx Hypertension, Hx Pulmonary Embolism Denies: Hx Coronary Artery Disease, Hx Heart Attack, Hx Hypercholesterolemia Pulmonary Medical History: Reports: Hx Asthma, Hx COPD Denies: Hx Bronchitis Neurological Medical History: Denies: Hx Seizures Endocrine Medical History: Denies: Hx Diabetes Mellitus Type 1, Hx Diabetes Mellitus Type 2, Hx Hyperthyroidism, Hx Hypothyroidism Renal/ Medical History: Reports: Hx Renal Insufficiency. Denies: Hx Peritoneal Dialysis GI Medical History: Denies: Hx Cirrhosis, Hx Gastroesophageal Reflux Disease, Hx Hepatitis Musculoskeltal Medical History: Denies Hx Arthritis Skin Medical History: Denies Hx Eczema, Denies Hx Psoriasis Psychiatric Medical History: Reports: Hx Dementia Denies: Hx Depression Infectious Medical History: Reports: Hx C-Diff, Hx MRSA. Denies: Hx Hepatitis Past Surgical History: Reports: Hx Herniorrhaphy. Denies: Hx Pacemaker - Immunizations Hx Diphtheria, Pertussis, Tetanus Vaccination: Yes Hx Pneumococcal Vaccination: 12/22/08 Review of Systems - Review of Systems -: Yes ROS unobtainable due to patient's medical condition - Patient is demented. Physical Exam - Vital signs Vitals: Temp Pulse Resp BP Pulse Ox 97.2 F 59 L 16 170/110 H 99 10/29/16 10:18 10/29/16 10:18 10/29/16 10:18 10/29/16 10:18 10/29/16 10:18 Interpretation: Normal - General General appearance: Appears well, Alert - HEENT Head: Normocephalic, Ecchymosis - Portable swelling, right-sided facial swelling., Other Eyes: Normal Pupils: PERRL - Respiratory Respiratory status: No respiratory distress Chest status: Nontender Breath sounds: Normal Chest palpation: Normal - Cardiovascular Rhythm: Regular Heart sounds: Normal auscultation Murmur: No - Abdominal Inspection: Normal Distension: No distension Bowel sounds: Normal Tenderness: Nontender Organomegaly: No organomegaly - Back Back: Normal, Nontender - Extremities General upper extremity: Normal inspection, Nontender, Normal color, Normal ROM , Normal temperature General lower extremity: Normal inspection, Nontender, Normal color, Normal ROM , Normal temperature, Normal weight bearing. No: Bryon's sign - Neurological Neuro grossly intact: Yes Cognition: Normal Orientation: AAOx4 [place] Coma Scale Eye Opening: Spontaneous [place] Coma Scale Verbal: Oriented [place] Coma Scale Motor: Obeys Commands [place] Coma Scale Total: 15 Speech: Normal Motor strength normal: LUE, RUE, LLE, RLE Sensory: Normal - Psychological Associated symptoms: Normal affect, Normal mood - Skin Skin Temperature: Warm Skin Moisture: Dry Skin Color: Normal Course - Re-evaluation Re-evalutation: 10/29/16 12:02 Demented elderly man presents after another fall at his half-way. Patient' s extensive imaging studies unremarkable at this time. Patient's urine shows no infection. Of note patient had a Kumar catheter placed in the emergency department the return thousand mL of clear urine. Patient treated with incontinent urine. I suspicion patient will need to see urology in his family doctor for possible obstructive process. Patient be discharged home with leg bag in place to his half-way. Follow-up with urologyDr. next week. - Vital Signs Vital signs: Temp Pulse Resp BP Pulse Ox 97.2 F 59 L 12 179/95 H 98 10/29/16 10:18 10/29/16 10:18 10/29/16 11:45 10/29/16 11:45 10/29/16 11:45 - Laboratory Laboratory results interpreted by me: 10/29/16 11:22 Urine Ascorbic Acid 20 H Discharge - Discharge Clinical Impression: Acute urinary retention Fall Qualifiers: Encounter type: initial encounter Qualified Code(s): W19.XXXA - Unspecified fall, initial encounter Blunt head trauma Qualifiers: Encounter type: initial encounter Qualified Code(s): S09.8XXA - Other specified injuries of head, initial encounter Condition: Stable Disposition: HOME, SELF-CARE Instructions: Urinary Retention ([facility]) Additional Instructions: Follow-up with urology.
[2016-10-29 11:41] LABS: APPEARANCE,URINE CLEAR; BILIRUBIN,URINE NEGATIVE (NEGATIVE); GLUCOSE, URINE NEGATIVE (NEGATIVE); KETONES,URINE NEGATIVE (NEGATIVE); LEUKOCYTE ESTERASE,URINE NEGATIVE (NEGATIVE); NITRITE,URINE NEGATIVE (NEGATIVE); PROTEIN,URINE NEGATIVE (NEGATIVE); URINE SPECIFIC GRAVITY 1.008; UROBILINOGEN,URINE NEGATIVE mg/dL (<2.0)
--- NOTE | 2016-10-29 11:42 | RADIOLOGY REPORT (SQ) ---
EXAM DESCRIPTION: CT HEAD WITHOUT COMPLETED DATE/TIME: 10/29/2016 11:29 am REASON FOR STUDY: fall COMPARISON: 10/29/2016 TECHNIQUE: Axial images acquired through the brain without intravenous contrast. Images reviewed wi th bone, brain and subdural windows. Images stored on PACS. All CT scanners at this facility use dose modulation, iterative reconstruction, and/or weight based d osing when appropriate to reduce radiation dose to as low as reasonably achievable (ALARA). [facility]: Dose Right [facility]: CareDose [facility]: Dose Right [facility]: Teradose 4D [facility]: [employer] RADIATION DOSE: Up-to-date CT equipment and radiation dose reduction techniques were employed. CTDIv ol: 64.6 mGy. DLP: 1163 mGy-cm. mGy. LIMITATIONS: None. FINDINGS: VENTRICLES: Normal size and contour. CEREBRUM: No masses. No hemorrhage. No midline shift. Normal jo/white matter differentiation. N o evidence for acute infarction. CEREBELLUM: No masses. No hemorrhage. No alteration of density. No evidence for acute infarction. EXTRAAXIAL SPACES: No fluid collections. No masses. ORBITS AND GLOBE: No intra- or extraconal masses. Normal contour of globe without masses. CALVARIUM: No fracture. PARANASAL SINUSES: No fluid or mucosal thickening. SOFT TISSUES: No mass or hematoma. OTHER: No other significant finding. IMPRESSION: No significant interval change. No acute findings. Other findings as noted above TECHNICAL DOCUMENTATION: JOB ID: [id number] Quality ID # [id number]: Final reports with documentation of one or more dose reduction techniques (e.g., Au tomated exposure control, adjustment of the mA and/or kV according to patient size, use of iterative reconstruction technique) 2010 [employer]- All Rights Reserved
--- NOTE | 2016-10-29 11:51 | RADIOLOGY REPORT (SQ) ---
EXAM DESCRIPTION: CT CERVICAL SPINE WITHOUT COMPLETED DATE/TIME: 10/29/2016 11:29 am REASON FOR STUDY: fall COMPARISON: 10/29/2016 TECHNIQUE: Axial images acquired through the cervical spine without intravenous contrast. Images re viewed with lung, soft tissue and bone windows. Reconstructed coronal and sagittal MPR images review ed. Images stored on PACS. All CT scanners at this facility use dose modulation, iterative reconstruction, and/or weight based d osing when appropriate to reduce radiation dose to as low as reasonably achievable (ALARA). [facility]: Dose Right [facility]: CareDose [facility]: Dose Right [facility]: Teradose 4D [facility]: Smart [employer] RADIATION DOSE: Up-to-date CT equipment and radiation dose reduction techniques were employed. CTDIv ol: 13.7 mGy. DLP: 300 mGy-cm. mGy. LIMITATIONS: None. FINDINGS: ALIGNMENT: Alignment is unchanged. MINERALIZATION: Normal. VERTEBRAL BODIES: No fractures or dislocation. DISCS: Stable finding FACETS, LATERAL MASSES, POSTERIOR ELEMENTS: No fractures. No dislocation. No acute findings. HARDWARE: None in the spine. VISUALIZED RIBS: No fractures. LUNG APICES AND SOFT TISSUES: No significant or acute findings. OTHER: No other significant finding. IMPRESSION: No significant interval changes compared to the previous study. No acute findings. Oth er findings as noted above TECHNICAL DOCUMENTATION: JOB ID: [id number] Quality ID # [id number]: Final reports with documentation of one or more dose reduction techniques (e.g., Au tomated exposure control, adjustment of the mA and/or kV according to patient size, use of iterative reconstruction technique) 2010 [employer]- All Rights Reserved
[2016-10-29 14:51] VITALS: BP 193/93
== END 2016-10-29 14:49 | disposition home or self-care (01) ==
LOC: ER 10:07
DX: S09.8XXA Other specified injuries of head, initial encounter (principal); R33.9 Retention of urine, unspecified; W18.39XA Other fall on same level, initial encounter; Y92.129 Unspecified place in nursing home as the place of occurrence of the external cause; E78.00 Pure hypercholesterolemia, unspecified; Z86.711 Personal history of pulmonary embolism
CPT/HCPCS: 70450; 72125; 81001; 99285

== ENCOUNTER 2016-10-30 10:27 | Emergency (ER) | payer MEDICARE, OTHER ==
--- NOTE | 2016-10-30 11:04 | ER Document Report ---
ED Fall - General Chief Complaint: Fall Stated Complaint: FALL/ HEAD PAIN Time Seen by Provider: 10/30/16 10:32 Mode of Arrival: Medic Information source: Transfer Record, Emergency Med Personnel Cannot obtain history due to: Dementia TRAVEL OUTSIDE OF THE [place] IN LAST 30 DAYS: No - HPI Occurred: This morning - 2 AM Where: [facility] Context: Fell from sitting - FELL OUT OF WHEELCHAIR Associated symptoms: Other - UNKNOWN Location of injury/pain: Face Prehospital interventions: C-collar - Related data Allergies/Adverse Reactions: hydrochlorothiazide [Hydrochlorothiazide] Allergy (Intermediate, Verified 03:05) Rash Past Medical History - General Information source: Transfer Record, Emergency Med Personnel - Social History Smoking Status: Unknown if Ever Smoked Cigarette use (# per day): No Chew tobacco use (# tins/day): No Frequency of alcohol use: None Drug Abuse: None Lives with: [facility] Family History: COPD, Hyperlipidemia, Hypertension - Past Medical History Cardiac Medical History: Reports: Hx Hypertension, Hx Pulmonary Embolism Denies: Hx Coronary Artery Disease, Hx Heart Attack, Hx Hypercholesterolemia Pulmonary Medical History: Reports: Hx Asthma, Hx COPD Denies: Hx Bronchitis Neurological Medical History: Denies: Hx Seizures Endocrine Medical History: Denies: Hx Diabetes Mellitus Type 1, Hx Diabetes Mellitus Type 2, Hx Hyperthyroidism, Hx Hypothyroidism Renal/ Medical History: Reports: Hx Renal Insufficiency. Denies: Hx Peritoneal Dialysis GI Medical History: Denies: Hx Cirrhosis, Hx Gastroesophageal Reflux Disease, Hx Hepatitis Musculoskeltal Medical History: Denies Hx Arthritis Skin Medical History: Denies Hx Eczema, Denies Hx Psoriasis Psychiatric Medical History: Reports: Hx Dementia Denies: Hx Depression Infectious Medical History: Reports: Hx C-Diff, Hx MRSA. Denies: Hx Hepatitis Past Surgical History: Reports: Hx Herniorrhaphy. Denies: Hx Pacemaker - Immunizations Hx Diphtheria, Pertussis, Tetanus Vaccination: Yes Hx Pneumococcal Vaccination: 12/22/08 Review of Systems - Review of Systems -: Yes ROS unobtainable due to patient's medical condition Physical Exam - Vital signs Vitals: Pulse Resp BP Pulse Ox 74 17 117/74 93 10/30/16 10:32 10/30/16 10:32 10/30/16 10:32 10/30/16 10:32 Interpretation: Hypertensive. No: Tachycardic, Tachypneic - General General appearance: Appears well In distress: None - HEENT Head: Tenderness - R. TEMPORAL ORBITAL RIM. No: Atraumatic Eyes: Normal Conjunctiva: Normal Extraocular movements intact: Yes Pupils: PERRL Anterior chamber: Normal Ears: Normal External canal: Normal Tympanic membrane: Normal. No: Hemotympanum Nasal: Normal. No: Epistaxis Mouth/Lips: Normal Mucous membranes: Normal Neck: Other - IN C-COLLAR - Respiratory Respiratory status: No respiratory distress Breath sounds: Normal - Cardiovascular Rhythm: Regular Heart sounds: Normal auscultation Murmur: No - Abdominal Inspection: Normal Distension: No distension - Extremities General upper extremity: Normal inspection General lower extremity: Normal inspection - Neurological Neuro grossly intact: No - DEMENTIA Cognition: Confused - Skin Skin Temperature: Warm Skin Moisture: Dry Skin Color: Normal Skin Turgor: Elastic Skin irregularity: Tender indurated area Location of irregularity: Face Course - Vital Signs Vital signs: Temp Pulse Resp BP Pulse Ox 74 17 117/74 93 10/30/16 10:32 10/30/16 10:32 10/30/16 10:32 10/30/16 10:32 Discharge - Discharge Clinical Impression: Facial abrasion Qualifiers: Encounter type: initial encounter Qualified Code(s): S00.81XA - Abrasion of other part of head, initial encounter Facial abrasion Qualifiers: Encounter type: initial encounter Qualified Code(s): S00.81XA - Abrasion of other part of head, initial encounter Fall Qualifiers: Encounter type: initial encounter Qualified Code(s): W19.XXXA - Unspecified fall, initial encounter Condition: Stable Disposition: HOME-SNF (ED ONLY) Additional Instructions: TAKE ALL REASONABLE PRECAUTIONS TO PREVENT PATIENT FROM FALLING. CONTINUE USUAL CARE, DIET, AND MEDS. RETURN OR FOLLOW UP WITH DR. FARLEY NEEDED. Referrals: GAVI FARLEY MD [Primary Care Provider] - Follow up as needed
--- NOTE | 2016-10-30 11:39 | RADIOLOGY REPORT (SQ) ---
EXAM DESCRIPTION: CT CERVICAL SPINE WITHOUT COMPLETED DATE/TIME: 10/30/2016 11:25 am REASON FOR STUDY: FALL, TRAUMA COMPARISON: 10/29/2016 TECHNIQUE: Axial images acquired through the cervical spine without intravenous contrast. Images re viewed with lung, soft tissue and bone windows. Reconstructed coronal and sagittal MPR images review ed. Images stored on PACS. All CT scanners at this facility use dose modulation, iterative reconstruction, and/or weight based d osing when appropriate to reduce radiation dose to as low as reasonably achievable (ALARA). [facility]: Dose Right [facility]: CareDose [facility]: Dose Right [facility]: Teradose 4D [facility]: [employer] RADIATION DOSE: Up-to-date CT equipment and radiation dose reduction techniques were employed. CTDIv ol: 18.8 mGy. DLP: 400 mGy-cm. mGy. LIMITATIONS: None. FINDINGS: ALIGNMENT: Anatomic. MINERALIZATION: Normal. VERTEBRAL BODIES: No fractures or dislocation. DISCS: Again there is almost complete loss of the C6-C7 disc space heights with associated osteophyti c lipping. FACETS, LATERAL MASSES, POSTERIOR ELEMENTS: No fractures. No dislocation. No acute findings. HARDWARE: None in the spine. VISUALIZED RIBS: No fractures. LUNG APICES AND SOFT TISSUES: No significant or acute findings. OTHER: No other significant finding. IMPRESSION: No significant interval change from the previous study. Degenerative changes without ev idence for fracture TECHNICAL DOCUMENTATION: JOB ID: [id number] Quality ID # [id number]: Final reports with documentation of one or more dose reduction techniques (e.g., Au tomated exposure control, adjustment of the mA and/or kV according to patient size, use of iterative reconstruction technique) 2010 [employer]- All Rights Reserved
--- NOTE | 2016-10-30 11:43 | RADIOLOGY REPORT (SQ) ---
EXAM DESCRIPTION: CT FACIAL AREA WITHOUT COMPLETED DATE/TIME: 10/30/2016 11:25 am REASON FOR STUDY: FALL, TRAUMA COMPARISON: None. TECHNIQUE: Noncontrasted images through the facial bones and orbits windowed for bone and soft tissu e. Additional coronal and sagittal reconstructed images reviewed. All images stored on PACS. All CT scanners at this facility use dose modulation, iterative reconstruction, and/or weight based d osing when appropriate to reduce radiation dose to as low as reasonably achievable (ALARA). [facility]: Dose Right [facility]: CareDose [facility]: Dose Right [facility]: Teradose 4D [facility]: [employer] RADIATION DOSE: Up-to-date CT equipment and radiation dose reduction techniques were employed. CTDIv ol: 30.4 mGy. DLP: 617 mGy-cm. mGy. LIMITATIONS: None. FINDINGS: FACIAL BONES: No fracture or bone lesion. ORBITS: Intact. No fracture. Symmetric intact globes and retroorbital soft tissues. PARANASAL SINUSES: Clear. No significant mucosal thickening, mass or fluid. No nasal polyps. Maxill geeta sinus outlets are patent. SOFT TISSUES: No mass or edema. INFERIOR BRAIN: Limited view. No acute findings. OTHER: No other significant finding. IMPRESSION: NO ACUTE FINDINGS. TECHNICAL DOCUMENTATION: JOB ID: [id number] Quality ID # [id number]: Final reports with documentation of one or more dose reduction techniques (e.g., Au tomated exposure control, adjustment of the mA and/or kV according to patient size, use of iterative reconstruction technique) 2010 [employer]- All Rights Reserved
[2016-10-30 12:10] VITALS: BP 127/85
== END 2016-10-30 12:30 ==
LOC: ER 10:27
DX: S00.81XA Abrasion of other part of head, initial encounter (principal); W05.0XXA Fall from non-moving wheelchair, initial encounter; Y92.129 Unspecified place in nursing home as the place of occurrence of the external cause; F03.90 Unspecified dementia, unspecified severity, without behavioral disturbance, psychotic disturbance, mood disturbance, and anxiety; I10 Essential (primary) hypertension; J44.9 Chronic obstructive pulmonary disease, unspecified; Z88.8 Allergy status to other drugs, medicaments and biological substances
CPT/HCPCS: 70486; 72125; 99283

== ENCOUNTER 2016-11-01 09:47 | Emergency (ER) | payer MEDICARE, OTHER ==
[2016-11-01] MEDS ORDERED: LIDOCAINE 1% INJ-PF (10 MG/ML) 30 ML SDV INJ ONE (10:11)
[2016-11-01] MEDS ORDERED: LIDOCAINE 4%/TETRACAINE 0.5%/EPI 0.18% 5 ML TOPICAL SOLN TOP ONE (10:11)
--- NOTE | 2016-11-01 10:11 | ER Document Report ---
ED Fall - General Mode of Arrival: Medic Information source: Patient, Outside Facility Records TRAVEL OUTSIDE OF THE [place] IN LAST 30 DAYS: No - HPI Occurred: Just prior to arrival Where: [facility] Location of injury/pain: Face - left eyebrow, Knee - left knee <MARCIA BUTT - Last Filed: 11/01/16 10:11> <SHIRA FELTON - Last Filed: 11/01/16 11:25> - General Chief Complaint: Fall Injury Stated Complaint: FALL,HEAD PAIN Time Seen by Provider: 11/01/16 09:56 Notes: Patient is a 76 year old male who presents to the ED with complaints of a fall while at the [facility] this morning, patient was standing up at the sick stepped back and then fell. Patient has head pain, a laceration to his left eyebrow and a contusion to his left knee. Patient was seen in the ED 2 times on 10/29/2016 and 1 time on 10/30/2016 all for falls. (MARCIA BUTT) - Related data Allergies/Adverse Reactions: hydrochlorothiazide [Hydrochlorothiazide] Allergy (Intermediate, Verified 09:57) Rash Past Medical History - General Information source: Patient, Outside Facility Records Cannot obtain history due to: Dementia - Social History Smoking Status: Unknown if Ever Smoked Family History: COPD, Hyperlipidemia, Hypertension - Past Medical History Cardiac Medical History: Reports: Hx Hypertension, Hx Pulmonary Embolism Pulmonary Medical History: Reports: Hx Asthma, Hx COPD Renal/ Medical History: Reports: Hx Renal Insufficiency Psychiatric Medical History: Reports: Hx Dementia Infectious Medical History: Reports: Hx C-Diff, Hx MRSA Past Surgical History: Reports: Hx Herniorrhaphy - Immunizations Hx Diphtheria, Pertussis, Tetanus Vaccination: Yes Hx Pneumococcal Vaccination: 12/22/08 <MARCIA BUTT - Last Filed: 11/01/16 10:11> Review of Systems - Review of Systems Constitutional: No symptoms reported EENT: See HPI, Other - laceration to left eyebrown, head pain Cardiovascular: No symptoms reported Respiratory: No symptoms reported Gastrointestinal: No symptoms reported Genitourinary: No symptoms reported Male Genitourinary: No symptoms reported Musculoskeletal: See HPI. denies: Neck pain Skin: See HPI, Other - laceration to left eybrow, contusion to left knee Hematologic/Lymphatic: No symptoms reported Neurological/Psychological: No symptoms reported <MARCIA BUTT - Last Filed: 11/01/16 10:11> Physical Exam - General General appearance: Alert In distress: None - HEENT Head: Normocephalic, Abrasions, Other - old contusion to right lateral eyebrow from previous fall, new contusion laceration over left lateral eyebrow that is 2cm Eyes: Normal Extraocular movements intact: Yes Pupils: PERRL Neck: Normal, Other - denies neck pain, feels better with c collar removed - Respiratory Respiratory status: No respiratory distress Chest status: Nontender Breath sounds: Normal, Other - wheezing in upper airway only, lungs are clear Chest palpation: Normal - Cardiovascular Rhythm: Regular Heart sounds: Normal auscultation Murmur: No - Abdominal Inspection: Normal Distension: No distension Bowel sounds: Normal Tenderness: Nontender - Back Back: Normal - Extremities General upper extremity: Normal ROM, Other - old contusion to right elbow General lower extremity: Edema - bilateral, Other - new contusion to left anterior lateral knee - Neurological Neuro grossly intact: Yes - Psychological Associated symptoms: Normal affect, Normal mood - Skin Skin Temperature: Warm Skin Moisture: Dry Skin Color: Normal Skin irregularity: other - see head and lower extremity exam <JELLY BUTTANDRA - Last Filed: 11/01/16 10:11> Procedures - Laceration/Wound Repair Left Upper Face Time completed: 11:20 Wound length (cm): 2 Wound's Depth, Shape: Into muscle, Linear, Contused tissue Laceration pre-procedure: Sterile drapes applied, Other - hibiclens Anesthetic type: 1% Lidocaine Volume Anesthetic (mLs): 3 Wound explored: Clean, No foreign body removed Wound Debrided: Minimal Wound Repaired With: Sutures Suture Size/Type: 5:0 Number of Sutures: 6 Layer Closure?: No Post-procedure wound care: Sterile dressing applied Post-procedure NV exam normal: Yes Complications: No <SHIRA FELTON - Last Filed: 11/01/16 11:25> Discharge <FILOMENAMARCIA - Last Filed: 11/01/16 10:11> <SHIRA FELTON - Last Filed: 11/01/16 11:25> - Discharge Clinical Impression: Fall Qualifiers: Encounter type: initial encounter Qualified Code(s): W19.XXXA - Unspecified fall, initial encounter Laceration of eyebrow, left Qualifiers: Encounter type: initial encounter Qualified Code(s): S01.112A - Laceration without foreign body of left eyelid and periocular area, initial encounter Condition: Stable Disposition: SNF Additional Instructions: Laceration Care Your laceration has been sutured to keep the skin edges aligned during healing. The time of suture removal depends on the nature and location of your cut. Please follow the care instructions the doctor has outlined for you and return for further care, according to the schedule you've been given. Keep the wound and dressing clean. Unless you were told otherwise, you may shower daily, blotting the wound dry with a clean, unused towel. At other times, If the dressing gets wet or blood soaked, remove it and blot the wound dry, then reapply a new dressing. Unless you were instructed otherwise, dressings should be changed at least daily. If any signs of infection occur (swelling, redness, increasing tenderness, red streaks, tender lumps in the armpit or groin above the laceration, or fever) , see the doctor immediately. Return in 1 week for suture removal. Follow-up with your doctor if any problems. RETURN TO THE EMERGENCY ROOM IF ANY NEW OR WORSENING SYMPTOMS. Referrals: GAVI FARLEY MD [Primary Care Provider] - Follow up as needed Scribe Attestation: 11/01/16 11:22 I personally performed the services described in the documentation, reviewed and edited the documentation which was dictated to the scribe in my presence, and it accurately records my words and actions. (SHIRA FELTON) Scribe Documentation - Scribe Written by Richard:: richard Preston, 11/01/2016, [id number] acting as scribe for :: Adeel <MARCIA BUTT - Last Filed: 11/01/16 10:11>
[2016-11-01 12:05] VITALS: BP 189/95
== END 2016-11-01 12:48 ==
LOC: ER 09:47
PROC: 0HQ1XZZ Repair Face Skin, External Approach (ICD-10-PCS; principal; 2016-11-01)
DX: S01.112A Laceration without foreign body of left eyelid and periocular area, initial encounter (principal); R51 Headache; W18.39XA Other fall on same level, initial encounter; Y92.129 Unspecified place in nursing home as the place of occurrence of the external cause; I10 Essential (primary) hypertension; Z86.711 Personal history of pulmonary embolism; J45.909 Unspecified asthma, uncomplicated; J44.9 Chronic obstructive pulmonary disease, unspecified; Z86.14 Personal history of Methicillin resistant Staphylococcus aureus infection
CPT/HCPCS: 99285; 12011; J3490

== ENCOUNTER 2017-01-14 03:10 | Emergency (ER) | payer MEDICARE, OTHER ==
[2017-01-14 03:31] VITALS: BP 156/84
--- NOTE | 2017-01-14 03:31 | ER Document Report ---
ED General - General Chief Complaint: Altered Mental Status Stated Complaint: ALTERED MENTAL STATUS Time Seen by Provider: 01/14/17 03:29 Notes: Mr. Lowery is a 76-year-old male with a history of dementia who stays at the assisted. He apparently became very agitated does not start hitting the nurses. He was given his prescribed 1 mg of IM Ativan. He then calm down and was brought to the ER. Patient is currently calm has no further concerns or complaints. No report of recent fevers or infections. TRAVEL OUTSIDE OF THE [place] IN LAST 30 DAYS: No - Related Data Allergies/Adverse Reactions: hydrochlorothiazide [Hydrochlorothiazide] Allergy (Intermediate, Verified 09:57) Rash Past Medical History - Social History Smoking Status: Unknown if Ever Smoked Frequency of alcohol use: None Drug Abuse: None Family History: COPD, Hyperlipidemia, Hypertension - Past Medical History Cardiac Medical History: Reports: Hx Hypertension, Hx Pulmonary Embolism Denies: Hx Coronary Artery Disease, Hx Heart Attack, Hx Hypercholesterolemia Pulmonary Medical History: Reports: Hx Asthma, Hx COPD Denies: Hx Bronchitis Neurological Medical History: Denies: Hx Seizures Endocrine Medical History: Denies: Hx Diabetes Mellitus Type 1, Hx Diabetes Mellitus Type 2, Hx Hyperthyroidism, Hx Hypothyroidism Renal/ Medical History: Reports: Hx Renal Insufficiency. Denies: Hx Peritoneal Dialysis GI Medical History: Denies: Hx Cirrhosis, Hx Gastroesophageal Reflux Disease, Hx Hepatitis Musculoskeltal Medical History: Denies Hx Arthritis Skin Medical History: Denies Hx Eczema, Denies Hx Psoriasis Psychiatric Medical History: Reports: Hx Dementia Denies: Hx Depression Infectious Medical History: Reports: Hx C-Diff, Hx MRSA. Denies: Hx Hepatitis Past Surgical History: Reports: Hx Herniorrhaphy. Denies: Hx Pacemaker - Immunizations Hx Diphtheria, Pertussis, Tetanus Vaccination: Yes Hx Pneumococcal Vaccination: 12/22/08 Review of Systems - Review of Systems -: Yes ROS unobtainable due to patient's medical condition - Patient is minimally verbal. He has severe dementia. Physical Exam - Vital signs Vitals: Temp Pulse Resp BP Pulse Ox 98.9 F 83 17 156/84 H 99 01/14/17 03:30 01/14/17 03:30 01/14/17 03:30 01/14/17 03:30 01/14/17 03:30 - Notes Notes: General Appearance: Well nourished, alert, cooperative, no acute distress, no obvious discomfort. Well-appearing. Vitals: reviewed, See vital signs table. Head: no swelling or tenderness to the head Eyes: PERRL, EOMI, Conjuctiva clear Mouth: No decreasd moisture Neck: Supple, no neck tenderness Lungs: No wheezing, No rales, No rhonci, No accessory muscle use, good air exchange bilaterally. Heart: Normal rate, Regular rythm, No murmur, no rub Abdomen: Normal BS, soft, No rigidity, No abdominal tenderness, No guarding, no rebound, no abdominal masses, no organomegaly Extremities: strength 5/5 in all extremities, good pulses in all extremities, no swelling or tenderness in the extremities, no edema. Skin: warm, dry, appropriate color, no rash Neuro: speech clear, oriented x 0, normal affect, wants to some questions. Cranial nerves II through XII are intact. Patient will occasionally move his extremities on his own. It is difficult to perform a specific neuro exam being the patient does not follow commands.. Course - Re-evaluation Re-evalutation: 01/14/17 06:[address] a [address] scan of the patient's head since the patient has a history of subdural hemorrhages in the past. This was negative. Also obtain a chest x- ray due to his history pneumonia. This was negative. Urinalysis was negative. It appears that the patient's agitation this is related to his ongoing dementia and also history of psychiatric illness. He was treated appropriately at the assisted with the Ativan. He is now improved. Patient was discharged home. I did discuss the plan with the patient's who is agreeable to it. She has no further concerns or questions at this time. Dictation of this chart was performed using voice recognition software; therefore, there may be some unintended grammatical errors. - Vital Signs Vital signs: Temp Pulse Resp BP Pulse Ox 98.9 F 83 17 156/84 H 99 01/14/17 05:50 01/14/17 03:30 01/14/17 05:50 01/14/17 03:30 01/14/17 05:50 - Laboratory Laboratory results interpreted by me: 01/14/17 03:41 Urine Ketones TRACE H Urine Urobilinogen 2.0 H Urine Ascorbic Acid 20 H Discharge - Discharge Clinical Impression: Agitation Condition: Good Disposition: HOME, SELF-CARE Additional Instructions: Please give Mr. Lowery his medications as prescribed. Return to the ER immediately if Mr. Lowery has worsening agitation not improved with his medications, fevers, if he is complaining of pain, or if he appears unwell.
--- NOTE | 2017-01-14 03:42 | ER Document Report ---
ED General - General Chief Complaint: Altered Mental Status Stated Complaint: ALTERED MENTAL STATUS Time Seen by Provider: 01/14/17 03:29 Notes: Patient is a 76-year-old male who is sent to the ER from [place] detention due to agitation. He does have a history of dementia with behavioral disturbances. He also has a history of some psychiatric illness. He is prescribed Ativan and injection of 1 mg every 8 hours at night for agitation. Tonight he is very agitated and had to give him the Ativan. He calmed down and then he was sent to the ER. Paramedics not to give any further medications. No reported fevers. Patient is minimally verbal on exam. I did review his previous records and this is his baseline. He does have history of subdural hemorrhages. He does have history of occasional pneumonia. TRAVEL OUTSIDE OF THE [place] IN LAST 30 DAYS: No - Related Data Allergies/Adverse Reactions: hydrochlorothiazide [Hydrochlorothiazide] Allergy (Intermediate, Verified 09:57) Rash Past Medical History - Social History Smoking Status: Unknown if Ever Smoked Frequency of alcohol use: None Drug Abuse: None Family History: COPD, Hyperlipidemia, Hypertension - Past Medical History Cardiac Medical History: Reports: Hx Hypertension, Hx Pulmonary Embolism Denies: Hx Coronary Artery Disease, Hx Heart Attack, Hx Hypercholesterolemia Pulmonary Medical History: Reports: Hx Asthma, Hx COPD Denies: Hx Bronchitis Neurological Medical History: Denies: Hx Seizures Endocrine Medical History: Denies: Hx Diabetes Mellitus Type 1, Hx Diabetes Mellitus Type 2, Hx Hyperthyroidism, Hx Hypothyroidism Renal/ Medical History: Reports: Hx Renal Insufficiency. Denies: Hx Peritoneal Dialysis GI Medical History: Denies: Hx Cirrhosis, Hx Gastroesophageal Reflux Disease, Hx Hepatitis Musculoskeltal Medical History: Denies Hx Arthritis Skin Medical History: Denies Hx Eczema, Denies Hx Psoriasis Psychiatric Medical History: Reports: Hx Dementia Denies: Hx Depression Infectious Medical History: Reports: Hx C-Diff, Hx MRSA. Denies: Hx Hepatitis Past Surgical History: Reports: Hx Herniorrhaphy. Denies: Hx Pacemaker - Immunizations Hx Diphtheria, Pertussis, Tetanus Vaccination: Yes Hx Pneumococcal Vaccination: 12/22/08 Review of Systems - Review of Systems -: Yes ROS unobtainable due to patient's medical condition - Patient is minimally verbal due to dementia Physical Exam - Vital signs Vitals: Temp Pulse Resp BP Pulse Ox 98.9 F 83 17 156/84 H 99 01/14/17 03:30 01/14/17 03:30 01/14/17 03:30 01/14/17 03:30 01/14/17 03:30 Course - Vital Signs Vital signs: Temp Pulse Resp BP Pulse Ox 98.9 F 83 17 156/84 H 99 01/14/17 03:30 01/14/17 03:30 01/14/17 03:30 01/14/17 03:30 01/14/17 03:30 Discharge - Discharge Clinical Impression: Agitation Condition: Good Disposition: HOME, SELF-CARE Additional Instructions: Please give Mr. Lowery his medications as prescribed. Return to the ER immediately if Mr. Lowery has worsening agitation not improved with his medications, fevers, if he is complaining of pain, or if he appears unwell.
[2017-01-14 03:55] LABS: APPEARANCE,URINE SLIGHTLY-CLOUDY; BILIRUBIN,URINE NEGATIVE (NEGATIVE); GLUCOSE, URINE NEGATIVE (NEGATIVE); KETONES,URINE TRACE mg/dL (NEGATIVE); LEUKOCYTE ESTERASE,URINE NEGATIVE (NEGATIVE); NITRITE,URINE NEGATIVE (NEGATIVE); PROTEIN,URINE NEGATIVE (NEGATIVE); URINE SPECIFIC GRAVITY 1.012
--- NOTE | 2017-01-14 04:18 | RADIOLOGY REPORT (SQ) ---
EXAM DESCRIPTION: CT HEAD WITHOUT COMPLETED DATE/TIME: 01/14/2017 4:04 am REASON FOR STUDY: krista COMPARISON: 10/29/2016. TECHNIQUE: Axial images acquired through the brain without intravenous contrast. Images reviewed wi th bone, brain and subdural windows. Images stored on PACS. All CT scanners at this facility use dose modulation, iterative reconstruction, and/or weight based d osing when appropriate to reduce radiation dose to as low as reasonably achievable (ALARA). [facility]: Dose Right [facility]: CareDose [facility]: Dose Right [facility]: Teradose 4D [facility]: Smart [employer] RADIATION DOSE: Up-to-date CT equipment and radiation dose reduction techniques were employed. CTDIv ol: 64.6 mGy. DLP: 1397 mGy-cm. mGy. LIMITATIONS: None. FINDINGS: VENTRICLES: Normal size and contour. CEREBRUM: No masses. No hemorrhage. No midline shift. No evidence for acute infarction. Mild cereb ral volume loss and mild white matter microangiopathy p the CEREBELLUM: No masses. No hemorrhage. No alteration of density. No evidence for acute infarction. EXTRAAXIAL SPACES: No fluid collections. No masses. ORBITS AND GLOBE: No intra- or extraconal masses. Normal contour of globe without masses. CALVARIUM: No fracture. PARANASAL SINUSES: No fluid or mucosal thickening. SOFT TISSUES: Small low-attenuation right posterior parietal scalp swelling/fluid, image 28 of series 3. OTHER: No other significant finding. IMPRESSION: No acute findings. EVIDENCE OF ACUTE STROKE: NO. COMMENT: Quality ID # [id number]: Final reports with documentation of one or more dose reduction techniques (e.g., Automated exposure control, adjustment of the mA and/or kV according to patient size, use of iterative reconstruction technique) TECHNICAL DOCUMENTATION: JOB ID: [id number]- All Rights Reserved
--- NOTE | 2017-01-14 05:04 | RADIOLOGY REPORT (SQ) ---
EXAM DESCRIPTION: CHEST SINGLE VIEW COMPLETED DATE/TIME: 01/14/2017 4:13 am REASON FOR STUDY: krista COMPARISON: CT, 09/10/2016, 09/01/2016. EXAM PARAMETERS: NUMBER OF VIEWS: One view. TECHNIQUE: Single frontal radiographic view of the chest acquired. RADIATION DOSE: NA LIMITATIONS: None. FINDINGS: LUNGS AND PLEURA: No opacities, masses or pneumothorax. No pleural effusion. MEDIASTINUM AND HILAR STRUCTURES: No masses. Contour normal. HEART AND VASCULAR STRUCTURES: Heart normal in size. Normal vasculature. BONES: No acute findings. HARDWARE: None in the chest. OTHER: No other significant finding. IMPRESSION: NO ACUTE RADIOGRAPHIC FINDING IN THE CHEST. TECHNICAL DOCUMENTATION: JOB ID: [id number]
== END 2017-01-14 06:34 | disposition home or self-care (01) ==
LOC: ER 03:10
DX: R45.1 Restlessness and agitation (principal); R41.82 Altered mental status, unspecified; F03.90 Unspecified dementia, unspecified severity, without behavioral disturbance, psychotic disturbance, mood disturbance, and anxiety; Z79.899 Other long term (current) drug therapy
CPT/HCPCS: 70450; 71010; 81001; 99285

== ENCOUNTER 2017-03-23 15:48 | Observation (INO) | payer MEDICARE, OTHER ==
[2017-03-23] MEDS ORDERED: IPRATROPIUM/ALBUTEROL 0.5-2.5 MG/3 ML AMPUL NEB ONE (15:54)
--- NOTE | 2017-03-23 16:27 | RADIOLOGY REPORT (SQ) ---
EXAM DESCRIPTION: CT FACIAL AREA WITHOUT COMPLETED DATE/TIME: 03/23/2017 4:17 pm REASON FOR STUDY: falls COMPARISON: 10/30/2016 TECHNIQUE: Noncontrasted images through the facial bones and orbits windowed for bone and soft tissu e. Additional coronal and sagittal reconstructed images reviewed. All images stored on PACS. All CT scanners at this facility use dose modulation, iterative reconstruction, and/or weight based d osing when appropriate to reduce radiation dose to as low as reasonably achievable (ALARA). [facility]: Dose Right [facility]: CareDose [facility]: Dose Right [facility]: Teradose 4D [facility]: [employer] RADIATION DOSE: CT Rad equipment meets quality standard of care and radiation dose reduction techniq ues were employed. CTDIvol: 30.4 mGy. DLP: 1185 mGy-cm. mGy. LIMITATIONS: Patient motion. FINDINGS: FACIAL BONES: No fracture or bone lesion. ORBITS: Intact. No fracture. Symmetric intact globes and retroorbital soft tissues. PARANASAL SINUSES: Clear. No significant mucosal thickening, mass or fluid. No nasal polyps. Maxill geeta sinus outlets are patent. SOFT TISSUES: Left supraorbital scalp hematoma. INFERIOR BRAIN: See separate report. OTHER: No other significant finding. IMPRESSION: No fracture. TECHNICAL DOCUMENTATION: JOB ID: [id number] Quality ID # [id number]: Final reports with documentation of one or more dose reduction techniques (e.g., Au tomated exposure control, adjustment of the mA and/or kV according to patient size, use of iterative reconstruction technique) 2010 [employer]- All Rights Reserved
--- NOTE | 2017-03-23 16:30 | RADIOLOGY REPORT (SQ) ---
EXAM DESCRIPTION: CT HEAD WITHOUT COMPLETED DATE/TIME: 03/23/2017 4:17 pm REASON FOR STUDY: falls COMPARISON: None. TECHNIQUE: Axial images acquired through the brain without intravenous contrast. Images reviewed wi th bone, brain and subdural windows. Images stored on PACS. All CT scanners at this facility use dose modulation, iterative reconstruction, and/or weight based d osing when appropriate to reduce radiation dose to as low as reasonably achievable (ALARA). [facility]: Dose Right [facility]: CareDose [facility]: Dose Right [facility]: Teradose 4D [facility]: Smart [employer] RADIATION DOSE: CT Rad equipment meets quality standard of care and radiation dose reduction techniq ues were employed. CTDIvol: 64.6 mGy. DLP: 1421 mGy-cm.mGy. LIMITATIONS: None. FINDINGS: VENTRICLES: Prominent. CEREBRUM: 5 mm focus of high attenuation consistent with parenchymal contusion left frontal lobe abut ting the falx. Chronic ischemic changes. CEREBELLUM: No masses. No hemorrhage. No alteration of density. No evidence for acute infarction. EXTRAAXIAL SPACES: Age-related involutional change. No fluid collections. No masses. ORBITS AND GLOBE: No intra- or extraconal masses. Normal contour of globe without masses. CALVARIUM: No fracture. PARANASAL SINUSES: No fluid or mucosal thickening. SOFT TISSUES: Left frontal scalp hematoma. OTHER: No other significant finding. IMPRESSION: Small brain contusion left frontal lobe. EVIDENCE OF ACUTE STROKE: NO. TECHNICAL DOCUMENTATION: JOB ID: [id number] Quality ID # [id number]: Final reports with documentation of one or more dose reduction techniques (e.g., Au tomated exposure control, adjustment of the mA and/or kV according to patient size, use of iterative reconstruction technique) 2010 [employer]- All Rights Reserved
--- NOTE | 2017-03-23 16:32 | RADIOLOGY REPORT (SQ) ---
EXAM DESCRIPTION: CT CERVICAL SPINE WITHOUT COMPLETED DATE/TIME: 03/23/2017 4:17 pm REASON FOR STUDY: falls COMPARISON: 10/30/2016 TECHNIQUE: Axial images acquired through the cervical spine without intravenous contrast. Images re viewed with lung, soft tissue and bone windows. Reconstructed coronal and sagittal MPR images review ed. Images stored on PACS. All CT scanners at this facility use dose modulation, iterative reconstruction, and/or weight based d osing when appropriate to reduce radiation dose to as low as reasonably achievable (ALARA). [facility]: Dose Right [facility]: CareDose [facility]: Dose Right [facility]: Teradose 4D [facility]: [employer] RADIATION DOSE: CT Rad equipment meets quality standard of care and radiation dose reduction techniq ues were employed. CTDIvol: 14.8 mGy. DLP: 347 mGy-cm. mGy. LIMITATIONS: None. FINDINGS: ALIGNMENT: Stable. MINERALIZATION: Normal. VERTEBRAL BODIES: No fractures or dislocation. DISCS: Multilevel disc space narrowing with osteophytes. FACETS, LATERAL MASSES, POSTERIOR ELEMENTS: Facet arthropathy. No fractures. No dislocation. No ac luis daniel findings. HARDWARE: None in the spine. VISUALIZED RIBS: No fractures. LUNG APICES AND SOFT TISSUES: No significant or acute findings. OTHER: No other significant finding. IMPRESSION: CHRONIC DEGENERATIVE CHANGES. NO ACUTE FINDINGS. TECHNICAL DOCUMENTATION: JOB ID: [id number] Quality ID # [id number]: Final reports with documentation of one or more dose reduction techniques (e.g., Au tomated exposure control, adjustment of the mA and/or kV according to patient size, use of iterative reconstruction technique) 2010 [employer]- All Rights Reserved
--- NOTE | 2017-03-23 16:41 | RADIOLOGY REPORT (SQ) ---
EXAM DESCRIPTION: CT CHEST WITHOUT COMPLETED DATE/TIME: 03/23/2017 4:18 pm REASON FOR STUDY: falls COMPARISON: 09/10/2016 TECHNIQUE: CT scan performed of the chest without intravenous contrast. Images reviewed with lung, soft tissue and bone windows. Reconstructed coronal and sagittal MPR images reviewed. All images st ored on PACS. All CT scanners at this facility use dose modulation, iterative reconstruction, and/or weight based d osing when appropriate to reduce radiation dose to as low as reasonably achievable (ALARA). [facility]: Dose Right [facility]: CareDose [facility]: Dose Right [facility]: Teradose 4D [facility]: Smart [employer] RADIATION DOSE: CT Rad equipment meets quality standard of care and radiation dose reduction techniq ues were employed. CTDIvol: 14.4 mGy. DLP: 614 mGy-cm. mGy. LIMITATIONS: No technical limitations. FINDINGS: LUNGS AND PLEURA: No masses, infiltrates, pneumothorax. No pleural effusions, calcificati ons. HILAR AND MEDIASTINAL STRUCTURES: No identified masses or abnormal nodes. No obvious aneurysm. HEART AND VASCULAR STRUCTURES: No aneurysm. No pericardial effusion. UPPER ABDOMEN: No significant findings. Limited exam. THYROID AND OTHER SOFT TISSUES: No masses. No adenopathy. BONES: Mild old compression fractures involving T4, T6 and T11. No acute fractures. Mild degenerati ve changes. HARDWARE: None in the chest. OTHER: No other significant findings. IMPRESSION: No acute findings on chest CT. TECHNICAL DOCUMENTATION: JOB ID: [id number] Quality ID # [id number]: Final reports with documentation of one or more dose reduction techniques (e.g., Au tomated exposure control, adjustment of the mA and/or kV according to patient size, use of iterative reconstruction technique) 2010 [employer]- All Rights Reserved
--- NOTE | 2017-03-23 17:13 | ER Document Report ---
ED General - General Chief Complaint: Fall Stated Complaint: FALL/BREATHING PROBLEMS Time Seen by Provider: 03/23/17 15:53 Mode of Arrival: Medic Information source: Emergency Med Personnel Notes: 76-year-old male who is in DNR presents after a fall striking his head. Patient brought in by EMS, they state that patient normally is nonverbal, he had a sensor which went off and afterwards they heard a thud. Patient was noted to have a laceration to the left frontal. TRAVEL OUTSIDE OF THE [place] IN LAST 30 DAYS: No - HPI Onset: Just prior to arrival Onset/Duration: Sudden Quality of pain: No pain Severity: Mild Pain Level: Denies Associated symptoms: Other Exacerbated by: Denies Relieved by: Denies Similar symptoms previously: Yes Recently seen / treated by doctor: Yes - Related Data Allergies/Adverse Reactions: hydrochlorothiazide [Hydrochlorothiazide] Allergy (Intermediate, Verified 09:57) Rash Past Medical History - Social History Smoking Status: Never Smoker Cigarette use (# per day): No Chew tobacco use (# tins/day): No Smoking Education Provided: No Family History: COPD, Hyperlipidemia, Hypertension Patient has suicidal ideation: No Patient has homicidal ideation: No - Past Medical History Cardiac Medical History: Reports: Hx Hypertension, Hx Pulmonary Embolism Denies: Hx Coronary Artery Disease, Hx Heart Attack, Hx Hypercholesterolemia Pulmonary Medical History: Reports: Hx Asthma, Hx COPD Denies: Hx Bronchitis Neurological Medical History: Denies: Hx Seizures Endocrine Medical History: Denies: Hx Diabetes Mellitus Type 1, Hx Diabetes Mellitus Type 2, Hx Hyperthyroidism, Hx Hypothyroidism Renal/ Medical History: Reports: Hx Renal Insufficiency. Denies: Hx Peritoneal Dialysis GI Medical History: Denies: Hx Cirrhosis, Hx Gastroesophageal Reflux Disease, Hx Hepatitis Musculoskeltal Medical History: Denies Hx Arthritis Skin Medical History: Denies Hx Eczema, Denies Hx Psoriasis Psychiatric Medical History: Reports: Hx Dementia Denies: Hx Depression Infectious Medical History: Reports: Hx C-Diff, Hx MRSA. Denies: Hx Hepatitis Past Surgical History: Reports: Hx Herniorrhaphy. Denies: Hx Pacemaker - Immunizations Hx Diphtheria, Pertussis, Tetanus Vaccination: Yes Hx Pneumococcal Vaccination: 12/22/08 Review of Systems - Review of Systems Notes: REVIEW OF SYSTEMS: CONSTITUTIONAL : Denies fever, chills, or sweats. Denies recent illness. EENT: Denies eye, ear, throat, or mouth pain or symptoms. Denies nasal or sinus congestion or discharge. Denies throat, tongue, or mouth swelling or difficulty swallowing. CARDIOVASCULAR: Denies chest pain. Denies palpitations or racing or irregular heart beat. Denies ankle edema. RESPIRATORY: Denies cough, cold, or chest congestion. Denies shortness of breath, difficulty breathing, or wheezing. GASTROINTESTINAL: Denies abdominal pain or distention. Denies nausea, vomiting , or diarrhea. Denies blood in vomitus, stools, or per rectum. Denies black, tarry stools. Denies constipation. GENITOURINARY: Denies difficulty urinating, painful urination, burning, frequency, blood in urine, or discharge. MUSCULOSKELETAL: Denies back or neck pain or stiffness. Denies joint pain or swelling. SKIN: Admits laceration scalp HEMATOLOGIC : Denies easy bruising or bleeding. LYMPHATIC: Denies swollen, enlarged glands. NEUROLOGICAL: Denies confusion or altered mental status. Denies passing out or loss of consciousness. Denies dizziness or lightheadedness. Denies headache. Denies weakness or paralysis or loss of use of either side. Denies problems with gait or speech. Denies sensory loss, numbness, or tingling. Denies seizures. PSYCHIATRIC: Denies anxiety or stress. Denies depression, suicidal ideation, or homicidal ideation. ALL OTHER SYSTEMS REVIEWED AND NEGATIVE. Dictation was performed using [employer] recognition software PHYSICAL EXAMINATION: GENERAL: Well-appearing, well-nourished and in no acute distress. HEAD: Left frontal hematoma with superficial abrasion measuring 3 mm EYES: Pupils equal round and reactive to light, extraocular movements intact, sclera anicteric, conjunctiva are normal. ENT: Nares patent, oropharynx clear without exudates. Moist mucous membranes. NECK: Normal range of motion, supple without lymphadenopathy LUNGS: Inspiratory expiratory wheezing noted all throughout HEART: Regular rate and rhythm without murmurs ABDOMEN: Soft, nontender, nondistended abdomen. No guarding, no rebound. No masses appreciated. Musculoskeletal: Normal range of motion, no pitting or edema. No cyanosis. NEUROLOGICAL: Patient unable to follow commands except when he is told to berry picker his head he was able to do so PSYCH: Normal mood, normal affect. SKIN: Superficial abrasion left frontal Physical Exam - Vital signs Vitals: Pulse Resp BP Pulse Ox 58 L 20 151/92 H 100 03/23/17 15:56 03/23/17 15:56 03/23/17 15:56 03/23/17 15:56 Course - Re-evaluation Re-evalutation: 03/23/17 18:15 Patient upon arrival was noted to be wheezing by EMS, she had been given a breathing treatment and was given further breathing treatment here. His wheezing significantly resolved. Patient was never in any respiratory distress , he has been off oxygen throughout satting 92% on room air. CT of the head was concerning for a frontal contusion, I did speak with her primary care physician who believes the patient is on Eliquis and therefore we will watch him in the hospital for 24-hour evaluation - Vital Signs Vital signs: Temp Pulse Resp BP Pulse Ox 58 L 20 151/92 H 100 03/23/17 15:56 03/23/17 15:56 03/23/17 15:56 03/23/17 15:56 - Diagnostic Test Radiology reviewed: Image reviewed, Reports reviewed - Brain contusion Discharge - Discharge Clinical Impression: DNR (do not resuscitate), Left frontal hematoma Brain contusion Qualifiers: Encounter type: initial encounter Loss of consciousness presence/duration: without LOC Qualified Code(s): S06.2X0A - Diffuse traumatic brain injury without loss of consciousness, initial encounter Condition: Stable Disposition: ADMITTED OBSERVATION Admitting Provider: [facility] Admitted: Telemetry
[2017-03-23] MEDS ORDERED: BUPROPION HCL 75 MG TABLET PO SCH (21:15)
[2017-03-23] MEDS ORDERED: ALBUTEROL SULFATE HFA (90 MCG/PUFF) 200 PUFF/8.5 GM MDI IH PRN (21:15)
[2017-03-23] MEDS ORDERED: IPRATROPIUM/ALBUTEROL 0.5-2.5 MG/3 ML AMPUL NEB PRN (21:15)
[2017-03-23] MEDS ORDERED: ACETAMINOPHEN 325 MG TABLET PO PRN (21:15)
[2017-03-23] MEDS ORDERED: (PENDING PHARMACY ID) (Melatonin [Melatin] 3 MG) PO SCH (22:00)
[2017-03-23] MEDS ORDERED: BUPROPION HCL 75 MG TABLET PO ONE (22:00)
[2017-03-23] MEDS ORDERED: RIVASTIGMINE 9.5 MG/24 HR PATCH.TD24 TD ONE (22:00)
[2017-03-23] MEDS ORDERED: METOPROLOL SUCCINATE 50 MG TAB.SR.24H PO ONE (22:00)
[2017-03-23] MEDS ORDERED: DIVALPROEX SODIUM 125 MG CAP.SPRINK PO SCH (22:00)
[2017-03-23] MEDS ORDERED: LISINOPRIL 5 MG TABLET PO ONE (22:15)
[2017-03-23] MEDS ORDERED: ASPIRIN 81 MG TABLET, ENT COATED PO ONE (23:00)
[2017-03-23] MEDS: BUDESONIDE/FORMOTEROL 80-4.5 MCG 60 PUFF/6.9 GM MDI IH SCH (23:45)
[2017-03-23] MEDS: QUETIAPINE FUMARATE 25 MG TABLET PO SCH (23:45)
[2017-03-24] MEDS: CARBIDOPA/LEVODOPA 25-100 MG TABLET PO SCH ×3 (01:00→12:23)
[2017-03-24] MEDS ORDERED: ENOXAPARIN SODIUM INJ 40 MG/0.4 ML DISP.SYRIN SUBCUT SCH (10:00)
[2017-03-24] MEDS ORDERED: BUPROPION HCL 75 MG TABLET PO SCH (10:00)
[2017-03-24] MEDS ORDERED: METOPROLOL SUCCINATE 50 MG TAB.SR.24H PO SCH (10:00)
[2017-03-24] MEDS ORDERED: RIVASTIGMINE 9.5 MG/24 HR PATCH.TD24 TD SCH (10:00)
[2017-03-24] MEDS ORDERED: LISINOPRIL 5 MG TABLET PO SCH (10:00)
[2017-03-24] MEDS ORDERED: ASPIRIN 81 MG TABLET, ENT COATED PO SCH (10:00)
--- NOTE | 2017-03-24 10:54 | PDOC H&P ---
History of Present Illness Admission Date/PCP: 03/23/17 18:27 GAVI FARLEY MD History of Present Illness: ESTHER VILLALTA is a 76 year old male, he has a history of Parkinson disease with dementia, history of frequent falls he was [facility] to [facility] room for evaluation of a fall that he sustained in the [facility] where he [facility]. He was extensively evaluated in the emergency room, CT head was done without contrast it showed a 5 mm before because of high attenuation consistent with parenchymal contusion of the left frontal lobe abutting the falx, CT of the facial area was done without contrast, it showed no fracture of facial bones, there was left supra orbital scalp hematoma, CT chest without contrast was done there was no masses infiltrate or pleural effusion, there is mild old compression fracture involving T4, T6 and T11, no acute fractures. Patient with very poor language skills difficult to communicate meaningfully with this patient, he was admitted for observation essentially because of the cerebral contusion. I saw him this morning, is about the same from my previous encounter with this patient, he be transferred back to [facility] for continuity of care. He follows with [facility], neurology for his Parkinson's disease. Past Medical History Cardiac Medical History: Reports: Hypertension, Pulmonary Embolism Pulmonary Medical History: Reports: Asthma, Chronic Obstructive Pulmonary Disease (COPD) Psychiatric Medical History: Reports: Dementia Hematology: Reports: Anemia Infectious Medical History: Reports: Clostridium Difficile, Methicillin- Resistant Staph Aureus Past Surgical History Past Surgical History: Reports: Herniorrhaphy Social History Smoking Status: Never Smoker Frequency of Alcohol Use: None Hx Recreational Drug Use: No Drugs: None Hx Prescription Drug Abuse: No - Advance Directive Resuscitation Status: Do Not Resuscitate Family History Family History: COPD, Hyperlipidemia, Hypertension Parental Family History Reviewed: Yes Children Family History Reviewed: Yes Sibling(s) Family History Reviewed.: Yes Medication/Allergy Home Medications: Acetaminophen [Tylenol 325 mg Tablet] 650 mg PO Q6HP PRN 03/23/17 Albuterol Sulfate [Proair Hfa Inhalation Aerosol 8.5 gm Mdi] 1 puff IH Q4HP PRN 03/23/17 Aspirin [Aspirin EC] 81 mg PO DAILY 03/23/17 Budesonide/Formoterol Fumarate [Symbicort Hfa 80-4.5 Mcg Inhaler 6.9 gm] 2 puff IH Q12 03/23/17 Bupropion HCl [Wellbutrin 75 Mg Tablet] 75 mg PO DAILY 03/23/17 Carbidopa/Levodopa [Sinemet 25-100 mg Tablet] 1.5 tab PO Q6 03/23/17 Divalproex Sodium [Depakote Sprinkle 125 Mg Capsule] 125 mg PO QHS 03/23/17 Ipratropium/Albuterol Sulfate [Duoneb 3 ml Ampul] 3 ml NEB RTQ4HP PRN 03/23/17 Lisinopril [Prinivil 5 mg Tablet] 5 mg PO DAILY 03/23/17 Melatonin [Melatin] 3 mg PO QHS 03/23/17 Metoprolol Succinate [Toprol XL 100 mg Tablet] 100 mg PO DAILY 03/23/17 Quetiapine Fumarate [Seroquel 25 mg Tablet] 25 mg PO Q12 03/23/17 Rivastigmine [Exelon 9.5 Mg/24 Hr Transdermal Patch] 1 each TD DAILY 03/23/17 Allergies/Adverse Reactions: hydrochlorothiazide [Hydrochlorothiazide] Allergy (Intermediate, Verified 09:57) Rash Review of Systems ROS unobtainable: Due to mental status Physical Exam Vital Signs: Temp Pulse Resp BP Pulse Ox 98.6 F 64 18 123/71 93 03/24/17 08:56 03/24/17 08:56 03/24/17 08:56 03/24/17 08:56 03/24/17 08:56 Intake & Output 03/23/17 03/24/17 03/25/17 06:59 06:59 06:59 Intake Total 130 Balance 130 Weight 74.4 kg General appearance: PRESENT: other - Patient is an elderly male, not in any distress Head exam: PRESENT: other - There is a small abrasion in the forehead Eye exam: PRESENT: PERRLA Neck exam: PRESENT: full ROM Respiratory exam: PRESENT: clear to auscultation kalen Cardiovascular exam: PRESENT: +S1, +S2 GI/Abdominal exam: PRESENT: normal bowel sounds, soft Rectal exam: PRESENT: deferred Neurological exam: PRESENT: alert Psychiatric exam: PRESENT: appropriate affect, normal mood Skin exam: PRESENT: dry, intact, warm Results Impressions: Cervical Spine CT 03/23/17 15:54 IMPRESSION: CHRONIC DEGENERATIVE CHANGES. NO ACUTE FINDINGS. Chest CT 03/23/17 15:54 IMPRESSION: No acute findings on chest CT. Facial Bones CT 03/23/17 15:54 IMPRESSION: No fracture. Head CT 03/23/17 15:54 IMPRESSION: Small brain contusion left frontal lobe. EVIDENCE OF ACUTE STROKE: NO. Assessment & Plan - Diagnosis (1) Cerebral contusion Qualifiers: Encounter type: initial encounter Laterality: unspecified laterality Loss of consciousness presence/duration: without LOC Qualified Code(s): S06.330A - Contusion and laceration of cerebrum, unspecified, without loss of consciousness, initial encounter Is this a current diagnosis for this admission?: Yes (2) Scalp hematoma Qualifiers: Encounter type: initial encounter Qualified Code(s): S00.03XA - Contusion of scalp, initial encounter Is this a current diagnosis for this admission?: Yes (3) Gait abnormality Is this a current diagnosis for this admission?: Yes (4) Parkinsons disease Is this a current diagnosis for this admission?: Yes (5) Personal history of fall Is this a current diagnosis for this admission?: Yes - Plan Summary Plan Summary: Patient was admitted for observation, he will be transferred back to [facility]
--- NOTE | 2017-03-24 10:58 | PDOC DISCHARGE SUMMARY ---
General - Admit/Disc Date/PCP Admission Date/Primary Care Provider: 03/23/17 18:27 GAVI FARLEY MD Discharge Date: 03/24/17 - Discharge Diagnosis (1) Cerebral contusion Is this a current diagnosis for this admission?: Yes (2) Scalp hematoma Is this a current diagnosis for this admission?: Yes (3) Gait abnormality Is this a current diagnosis for this admission?: Yes (4) Parkinsons disease Is this a current diagnosis for this admission?: Yes (5) Personal history of fall Is this a current diagnosis for this admission?: Yes - Additional Information Resuscitation Status: Do Not Resuscitate Discharge Activity: Activity As Tolerated Home Medications: Acetaminophen [Tylenol 325 mg Tablet] 650 mg PO Q6HP PRN 03/23/17 Albuterol Sulfate [Proair HFA Inhalation Aerosol 8.5 gm MDI] 1 puff IH Q4HP PRN 03/23/17 Aspirin [Aspirin EC] 81 mg PO DAILY 03/23/17 Budesonide/Formoterol Fumarate [Symbicort HFA 80-4.5 mcg Inhaler 6.9 gm] 2 puff IH Q12 03/23/17 Bupropion HCl [Wellbutrin 75 mg Tablet] 75 mg PO DAILY 03/23/17 Carbidopa/Levodopa [Sinemet 25-100 mg Tablet] 1.5 tab PO Q6 03/23/17 Divalproex Sodium [Depakote Sprinkle 125 mg Capsule] 125 mg PO QHS 03/23/17 Ipratropium/Albuterol Sulfate [Duoneb 3 ml Ampul] 3 ml NEB RTQ4HP PRN 03/23/17 Lisinopril [Prinivil 5 mg Tablet] 5 mg PO DAILY 03/23/17 Melatonin [Melatin] 3 mg PO QHS 03/23/17 Metoprolol Succinate [Toprol XL 100 mg Tablet] 100 mg PO DAILY 03/23/17 Quetiapine Fumarate [Seroquel 25 mg Tablet] 25 mg PO Q12 03/23/17 Rivastigmine [Exelon 9.5 mg/24 Hr Transdermal Patch] 1 each TD DAILY 03/23/17 History of Present Illness History of Present Illness: ESTHER VILLALTA is a 76 year old male, he has a history of Parkinson disease with dementia, history of frequent falls he was transferred from the longterm to the emergency room for evaluation of a fall that he sustained in the longterm where he reside. He was extensively evaluated in the emergency room, CT head was done without contrast it showed a 5 mm before because of high attenuation consistent with parenchymal contusion of the left frontal lobe abutting the falx, CT of the facial area was done without contrast, it showed no fracture of facial bones, there was left supra orbital scalp hematoma, CT chest without contrast was done there was no masses infiltrate or pleural effusion, there is mild old compression fracture involving T4, T6 and T11, no acute fractures. Patient with very poor language skills difficult to communicate meaningfully with this patient, he was admitted for observation essentially because of the cerebral contusion. I saw him this morning, is about the same from my previous encounter with this patient, he be transferred back to longterm for continuity of care. He follows with [facility], neurology for his Parkinson's disease. Hospital Course Hospital Course: Patient was admitted for observation when he fell and sustained a cerebral contusion and mild scalp hematoma. There was no significant event recorded since admission, he be transferred back to longterm for continuity of care Physical Exam Vital Signs: Temp Pulse Resp BP Pulse Ox 98.6 F 64 18 123/71 93 03/24/17 08:56 03/24/17 08:56 03/24/17 08:56 03/24/17 08:56 03/24/17 08:56 Intake & Output 03/23/17 03/24/17 03/25/17 06:59 06:59 06:59 Intake Total 130 Balance 130 Weight 74.4 kg General appearance: PRESENT: no acute distress Eye exam: PRESENT: PERRLA Respiratory exam: PRESENT: clear to auscultation kalen Cardiovascular exam: PRESENT: +S1, +S2 GI/Abdominal exam: PRESENT: soft Neurological exam: PRESENT: alert Results Impressions: Cervical Spine CT 03/23/17 15:54 IMPRESSION: CHRONIC DEGENERATIVE CHANGES. NO ACUTE FINDINGS. Chest CT 03/23/17 15:54 IMPRESSION: No acute findings on chest CT. Facial Bones CT 03/23/17 15:54 IMPRESSION: No fracture. Head CT 03/23/17 15:54 IMPRESSION: Small brain contusion left frontal lobe. EVIDENCE OF ACUTE STROKE: NO.
[2017-03-24] MEDS: BUDESONIDE/FORMOTEROL 80-4.5 MCG 60 PUFF/6.9 GM MDI IH SCH (12:24)
[2017-03-24] MEDS: QUETIAPINE FUMARATE 25 MG TABLET PO SCH (12:34)
[2017-03-24 12:52] VITALS: BP 154/80
== END 2017-03-24 13:10 ==
LOC: ER 15:48 → EH 18:27 → 5 22:35
PROVIDERS: ADMIT Internal Medicine; ATTEND Internal Medicine
PROC: 3E0F7GC Introduction of Other Therapeutic Substance into Respiratory Tract, Via Natural or Artificial Opening (ICD-10-PCS; principal; 2017-03-23)
DX: S06.330A Contusion and laceration of cerebrum, unspecified, without loss of consciousness, initial encounter (principal); S00.03XA Contusion of scalp, initial encounter; W19.XXXA Unspecified fall, initial encounter; G20 Parkinson's disease; F02.80 Dementia in other diseases classified elsewhere, unspecified severity, without behavioral disturbance, psychotic disturbance, mood disturbance, and anxiety; R26.9 Unspecified abnormalities of gait and mobility; S00.81XA Abrasion of other part of head, initial encounter; I10 Essential (primary) hypertension; J44.9 Chronic obstructive pulmonary disease, unspecified; Z66 Do not resuscitate; Z91.81 History of falling; Z79.82 Long term (current) use of aspirin; Z79.899 Other long term (current) drug therapy; Z86.711 Personal history of pulmonary embolism; Z86.14 Personal history of Methicillin resistant Staphylococcus aureus infection; Z79.02 Long term (current) use of antithrombotics/antiplatelets
CPT/HCPCS: 94640; 99285; 70450; 70486; 71250; 72125; A9270 ×7; J3490 ×2; G0378; J7620

== ENCOUNTER 2017-03-28 17:11 | Emergency (ER) | payer MEDICARE, OTHER ==
--- NOTE | 2017-03-28 17:39 | ER Document Report ---
ED General - General Mode of Arrival: Ambulatory Information source: Patient TRAVEL OUTSIDE OF THE [place] IN LAST 30 DAYS: No <KELIN TORRES - Last Filed: 03/28/17 23:54> <CARLOS GOMEZ - Last Filed: 03/28/17 23:57> - General Chief Complaint: Altered Mental Status Stated Complaint: ALTERED MENTAL STATUS Time Seen by Provider: 03/28/17 17:29 Notes: Patient is a 76 year old male with a history of seizures and Parkinson's disease is brought into the emergency from [facility] via EMS for altered mental status. states the patient was in the emergency department on 03/23/17 due to a fall and discharged back home after treatment. states the patient now has not been behaving normally onset yesterday. states the patient normally walks and carries on a conversation with other but has not done so. also states the patient will not open his eyes. At bedside patient will not open eyes or answer questions. (KELIN TORRES) - Related Data Allergies/Adverse Reactions: hydrochlorothiazide [Hydrochlorothiazide] Allergy (Intermediate, Verified 09:57) Rash Past Medical History - General Information source: Relative - Social History Smoking Status: Unknown if Ever Smoked Family History: COPD, Hyperlipidemia, Hypertension - Past Medical History Cardiac Medical History: Reports: Hx Hypertension, Hx Pulmonary Embolism Pulmonary Medical History: Reports: Hx Asthma, Hx COPD Renal/ Medical History: Reports: Hx Renal Insufficiency Psychiatric Medical History: Reports: Hx Dementia Infectious Medical History: Reports: Hx C-Diff, Hx MRSA Past Surgical History: Reports: Hx Herniorrhaphy - Immunizations Hx Diphtheria, Pertussis, Tetanus Vaccination: Yes Hx Pneumococcal Vaccination: 12/22/08 <KELIN TORRES - Last Filed: 03/28/17 23:54> Review of Systems - Review of Systems -: Yes ROS unobtainable due to patient's medical condition <KELIN TORRES - Last Filed: 03/28/17 23:54> Physical Exam <KELIN TORRES - Last Filed: 03/28/17 23:54> <CARLOS GOMEZ - Last Filed: 03/28/17 23:57> - Vital signs Vitals: Temp Pulse Resp BP Pulse Ox 97.2 F 73 18 140/84 H 97 03/28/17 17:23 03/28/17 17:23 03/28/17 17:23 03/28/17 17:23 03/28/17 17:23 - Notes Notes: GENERAL: Patients eyes were closed on exam. Would grunt to sound of voice. Would not speak or follow commands. No acute distress. HEAD: Normocephalic, periorbital ecchymosis. Left frontal scalp abrasions. Bruising on the bridge of nose. EYES: Pupils equal, round, and reactive to light. Extraocular movements intact. No subconjunctival hematoma. ENT: Oral mucosa moist, tongue midline. Nares patent, no nasal septal hematoma, TM's intacts. Dried blood in the nostrils. NECK: Supple. Trachea midline. LUNGS: Expiratory wheezing. No respiratory distress. No trauma to chest. HEART: Regular rate and rhythm. No murmurs, gallops, or rubs. ABDOMEN: Soft, non-tender. Non-distended. No trauma to abdomen. EXTREMITIES: Moves all 4 extremities spontaneously. No edema, radial and dorsalis pedis pulses 2/4 bilaterally. No cyanosis. NEUROLOGICAL: Reflexes intact. Does not answer questions or open eyes. Responds to voice. Biceps and patellar DTRs 2+ bilaterally. PSYCH: Minimally interactive. (KELIN TORRES) Course - Laboratory Result Diagrams: 03/28/17 18:40 03/28/17 18:40 <KELIN TORRES - Last Filed: 03/28/17 23:54> - Laboratory Result Diagrams: 03/28/17 18:40 03/28/17 18:40 <CARLOS GOMEZ - Last Filed: 03/28/17 23:57> - Re-evaluation Re-evalutation: 03/28/17 21:20 CBC shows mild pancytopenia, coags slightly prolonged, ABG shows mildly low PO2 but no hypoxia, no CO2 retention, no acidosis, cardiac enzymes negative, urinalysis shows urinary tract infection with positive nitrites. This is been sent for culture. CT scan of the head does not show any acute bleeding or delayed bleed only chronic changes of atrophy and microvascular ischemia. The small subtle density in superior left frontal lobe presumably a small contusion is unchanged. Chest x-ray does not show any acute process. At one point the patient woke up and started asking for food, he was able to eat some soft pured food and thickened liquids without difficulty. Discussed with family that he appears to have urinary tract infection which may be causing his delirium. 03/28/17 21:20 Patient will be treated with a dose of Rocephin here and [facility] to [facility] on K[facility]lex for his urinary tract infection. (CARLOS GOMEZ) - Vital Signs Vital signs: Temp Pulse Resp BP Pulse Ox 97.7 F 76 18 147/98 H 97 03/28/17 22:17 03/28/17 21:00 03/28/17 22:17 03/28/17 22:17 03/28/17 22:17 - Laboratory Laboratory results interpreted by me: 03/28/17 03/28/17 03/28/17 18:20 18:40 18:40 WBC 3.7 L RBC 3.72 L Hgb 13.3 L MCV 107 H MCH 35.7 H Plt Count 141 L Monocytes % 13.2 H APTT ABG pO2 72.2 L ABG HCO3 26.1 H ABG Total CO2 27.4 H Creatine Kinase 24 L Urine Ketones Urine Blood Urine Nitrite Urine Urobilinogen Urine Ascorbic Acid Valproic Acid < 10.0 L 03/28/17 03/28/17 18:40 20:20 WBC RBC Hgb MCV MCH Plt Count Monocytes % APTT 39.5 H ABG pO2 ABG HCO3 ABG Total CO2 Creatine Kinase Urine Ketones TRACE H Urine Blood SMALL H Urine Nitrite POSITIVE H Urine Urobilinogen 4.0 H Urine Ascorbic Acid 40 H Valproic Acid - EKG Interpretation by Me Additional EKG results interpreted by me: 03/28/17 21:21 EKG shows sinus rhythm at a rate of 75, first-degree AV block, no ST segment elevations or depressions, there are T-wave inversions noted in the 3 which are isolated and flattening in V2, aVL is very low voltage per my interpretation. ( CARLOS GOMEZ) Discharge <KELIN TORRES - Last Filed: 03/28/17 23:54> <CARLOS GOMEZ - Last Filed: 03/28/17 23:57> - Discharge Clinical Impression: Delirium Urinary tract infection Qualifiers: Urinary tract infection type: acute cystitis Hematuria presence: with hematuria Qualified Code(s): N30.01 - Acute cystitis with hematuria Concussion Qualifiers: Encounter type: subsequent encounter Loss of consciousness presence/duration: without LOC Qualified Code(s): S06.0X0D - Concussion without loss of consciousness, subsequent encounter Periorbital ecchymosis Qualifiers: Encounter type: subsequent encounter Laterality: left Qualified Code(s): S00.12XD - Contusion of left eyelid and periocular area, subsequent encounter Traumatic periorbital ecchymosis of right eye Qualifiers: Encounter type: subsequent encounter Qualified Code(s): S05.11XD - Contusion of eyeball and orbital tissues, right eye, subsequent encounter Hypertension Qualifiers: Hypertension type: essential hypertension Qualified Code(s): I10 - Essential ( primary) hypertension Condition: Stable Disposition: HOME-ASSISTED LIVING Additional Instructions: Today he has urinary tract infection. We treated with Rocephin. He is being given Keflex to take at the [facility]. I expect this is what is causing him to have decreased interaction and altered mental status. If he does not improve within 2 days please return to the emergency department. I checked his Depakote level and it was undetectable. Please double check his medication list as the one you sent that shows he is supposed to be taking Depakote. If he is supposed to be taking Depakote please have the dose adjusted by his primary care physician. Prescriptions: Cephalexin Monohydrate [Keflex 500 mg Capsule] 500 mg PO Q6H 7 Days capsule Referrals: GAVI FARLEY MD [Primary Care Provider] - Follow up in 3-5 days Scribe Attestation: 03/28/17 23:57 I personally performed the services described in the documentation, reviewed and edited the documentation which was dictated to the scribe in my presence, and it accurately records my words and actions. (CARLOS GOMEZ) Scribe Documentation - Scribe Written by Lor:: Lor Dickinson, 03/28/2017 18:01 acting as scribe for :: Araseli <KELIN TORRES - Last Filed: 03/28/17 23:54>
--- NOTE | 2017-03-28 18:35 | EKG REPORT ---
SEVERITY:- ABNORMAL ECG - SINUS RHYTHM FIRST DEGREE AV BLOCK NONSPECIFIC ST-T CHANGES ANTERIOR LEADS QTC PROLONGATION. : Confirmed by: Marco Maldonado MD 28-Mar-2017 18:34:44
--- NOTE | 2017-03-28 18:39 | RADIOLOGY REPORT (SQ) ---
EXAM DESCRIPTION: CHEST SINGLE VIEW COMPLETED DATE/TIME: 03/28/2017 6:25 pm REASON FOR STUDY: fall, continuing AMS, confusion COMPARISON: 12/25/2016 EXAM PARAMETERS: NUMBER OF VIEWS: One view. TECHNIQUE: Single frontal radiographic view of the chest acquired. RADIATION DOSE: NA LIMITATIONS: None. FINDINGS: LUNGS AND PLEURA: No new opacities, masses or pneumothorax. No pleural effusion. MEDIASTINUM AND HILAR STRUCTURES: No masses. Contour normal. HEART AND VASCULAR STRUCTURES: Heart normal in size. Normal vasculature. BONES: No acute findings. HARDWARE: None in the chest. OTHER: No other significant finding. IMPRESSION: NO ACUTE RADIOGRAPHIC FINDING IN THE CHEST. NO SIGNIFICANT CHANGE FROM PRIOR STUDY. TECHNICAL DOCUMENTATION: JOB ID: [id number] [employer]- All Rights Reserved
[2017-03-28 18:53] LABS: ABSOLUTE BASOPHILS # (AUTO) 0.1 10^3/uL (0.0-0.2); ABSOLUTE EOSINOPHILS # (AUTO) 0.2 10^3/uL (0.0-0.6); ABSOLUTE MONOCYTES (AUTO) 0.5 10^3/uL (0.1-1.4); BASOPHILS % (AUTO) 1.4 % (0-2); EOSINOPHILS % (AUTO) 5.8 % (0-6); HEMATOCRIT 39.7 % (37.9-51.0); HEMOGLOBIN 13.3 g/dL (13.5-17.0); LYMPHOCYTES % (AUTO) 25.9 % (13-45); MEAN CORPUSCULAR HEMOGLOBIN 35.7 pg (27.0-33.4); MEAN CORPUSCULAR HGB CONC 33.5 g/dL (32.0-36.0); MEAN CORPUSCULAR VOLUME 107 fl (80-97); MONOCYTES % (AUTO) 13.2 % (3-13); PLATELET COUNT 141 10^3/uL (150-450); RED BLOOD COUNT 3.72 10^6/uL (4.35-5.55); RED CELL DISTRIBUTION WIDTH 12.2 % (11.5-14.0); SEGMENTED NEUTROPHILS % (AUTO) 53.7 % (42-78); TOTAL CELLS COUNTED % (AUTO) 100 %; WHITE BLOOD COUNT 3.7 10^3/uL (4.0-10.5)
[2017-03-28 18:59] LABS: INTERNATIONAL RATION (INR) 1.09; PROTHROMBIN TIME 14.8 SEC (11.4-15.4)
[2017-03-28 19:00] LABS: PARTIAL THROMBOPLASTIN TIME 39.5 SEC (23.5-35.8)
[2017-03-28 19:05] LABS: ARTERIAL BLOOD FIO2 ROOM AIR; ARTERIAL BLOOD HCO3 26.1 mmol/L (20-26); ARTERIAL BLOOD O2 SATURATION 94.5 % (94-98); ARTERIAL BLOOD PCO2 43.1 mmHg (35-45); ARTERIAL BLOOD PO2 72.2 mmHg (80-100); ARTERIAL BLOOD TOTAL CO2 27.4 mmol/L (23-27)
[2017-03-28 19:08] LABS: ALANINE AMINOTRANSFERASE 23 U/L (21-72); ALBUMIN 3.6 g/dL (3.5-5.0); ALKALINE PHOSPHATASE 80 U/L (38-126); ANION GAP 8 (5-19); ASPARTATE AMINO TRANSFERASE 20 U/L (17-59); BILIRUBIN,DIRECT 0.2 mg/dL (0.0-0.4); BILIRUBIN,TOTAL 0.4 mg/dL (0.2-1.3); BLOOD UREA NITROGEN 19 mg/dL (7-20); CALCIUM 8.6 mg/dL (8.4-10.2); CARBON DIOXIDE 26 mmol/L (22-30); CHLORIDE 104 mmol/L (98-107); CREATINE KINASE 24 U/L (55-170); GLUCOSE 87 mg/dL (75-110); POTASSIUM 4.3 mmol/L (3.6-5.0); SODIUM 138.3 mmol/L (137-145); TOTAL PROTEIN 6.6 g/dL (6.3-8.2)
[2017-03-28 19:18] LABS: VALPROIC ACID < 10.0 ug/mL (50.0-120.0)
[2017-03-28 19:19] LABS: CREATINE KINASE MB 0.5 ng/mL (<4.55); TROPONIN I 0.015 ng/mL
--- NOTE | 2017-03-28 19:19 | RADIOLOGY REPORT (SQ) ---
EXAM DESCRIPTION: CT HEAD WITHOUT COMPLETED DATE/TIME: 03/28/2017 7:07 pm REASON FOR STUDY: fall, continuing AMS, confusion COMPARISON: None. 03/23/2017. TECHNIQUE: Axial images acquired through the brain without intravenous contrast. Images reviewed wi th bone, brain and subdural windows. Images stored on PACS. All CT scanners at this facility use dose modulation, iterative reconstruction, and/or weight based d osing when appropriate to reduce radiation dose to as low as reasonably achievable (ALARA). [facility]: Dose Right [facility]: CareDose [facility]: Dose Right [facility]: Teradose 4D [facility]: Soapbox Mobile RADIATION DOSE: mGy. LIMITATIONS: None. FINDINGS: VENTRICLES: Prominent. CEREBRUM: No masses. Small subtle density in the superior left frontal lobe unchanged. No midline s hift. Areas of low density in the white matter most likely due to chronic micro-vascular ischemic ch vanessa. No evidence for acute infarction. CEREBELLUM: No masses. No hemorrhage. No alteration of density. No evidence for acute infarction. EXTRAAXIAL SPACES: Mild age-related involutional change. No fluid collections. No masses. ORBITS AND GLOBE: No intra- or extraconal masses. Normal contour of globe without masses. CALVARIUM: No fracture. PARANASAL SINUSES: No fluid or mucosal thickening. SOFT TISSUES: No mass or hematoma. OTHER: No other significant finding. IMPRESSION: MILD CHRONIC CHANGES OF ATROPHY AND MICROVASCULAR ISCHEMIA. SMALL SUBTLE DENSITY IN THE SUPERIOR LEFT FRONTAL LOBE, PRESUMABLY A SMALL CONTUSION, UNCHANGED. NO PROGRESSION OR ACUTE FINDIN GS. EVIDENCE OF ACUTE STROKE: NO. TECHNICAL DOCUMENTATION: JOB ID: [id number] Quality ID # [id number]: Final reports with documentation of one or more dose reduction techniques (e.g., Au tomated exposure control, adjustment of the mA and/or kV according to patient size, use of iterative reconstruction technique) 2010 [employer]- All Rights Reserved
[2017-03-28] MEDS ORDERED: IPRATROPIUM/ALBUTEROL 0.5-2.5 MG/3 ML AMPUL NEB ONE (19:44)
[2017-03-28 20:41] LABS: APPEARANCE,URINE CLOUDY; BILIRUBIN,URINE NEGATIVE (NEGATIVE); COLOR,URINE AMBER; GLUCOSE, URINE NEGATIVE (NEGATIVE); KETONES,URINE TRACE mg/dL (NEGATIVE); LEUKOCYTE ESTERASE,URINE NEGATIVE (NEGATIVE); NITRITE,URINE POSITIVE (NEGATIVE); PROTEIN,URINE NEGATIVE (NEGATIVE); URINE SPECIFIC GRAVITY 1.019
[2017-03-28] MEDS ORDERED: CEFTRIAXONE 1 GM/D5W RTU 1 GM/50 ML RTUPB IV ONE (21:20)
[2017-03-28 22:14] VITALS: BP 147/98
== END 2017-03-28 23:40 | disposition home health service (06) ==
LOC: ER 17:11
DX: S06.0X0D Concussion without loss of consciousness, subsequent encounter (principal); S05.11XD Contusion of eyeball and orbital tissues, right eye, subsequent encounter; I10 Essential (primary) hypertension; G20 Parkinson's disease; N30.01 Acute cystitis with hematuria; R41.0 Disorientation, unspecified; W19.XXXD Unspecified fall, subsequent encounter
CPT/HCPCS: 93005; 94640; 99285; 51701; 96365; 36415; 87086; 82553; 82803; 82550; 85025; 85610; 85730; 80053; 81001; 84484; 80164; 83605; 71045; 70450; 93010; 36600; J0696; A9270; J7620

== ENCOUNTER 2017-04-13 03:59 | Emergency (ER) | payer MEDICARE, OTHER ==
[2017-04-13] MEDS ORDERED: ALBUTEROL SULFATE 0.083% NEB 2.5 MG/3 ML AMPUL NEB ONE (05:19)
--- NOTE | 2017-04-13 05:22 | ER Document Report ---
Doctor's Note Notes: 04/13/17 05:20 I performed a quick triage evaluation of the patient. Patient is a 76-year-old male who comes to skilled nursing with report of fall. He is apparently had an unwitnessed fall. He does have some bruising around the eyes themselves consistent with raccoon sign. Does not have any swelling to the head itself. He does have a c-collar in place. He is nonverbal. Able to respond to some commands. He is awake and alert. He does have pain with range of motion of left hip. He has no bruising to the abdomen. He does have a wheezing type noise when he breathes but appears to be mostly upper airway. It is difficult to hear his lung sounds well because he makes was noise with his upper airway. I will therefore give him albuterol treatment and to a chest x-ray as well. CT scan of the head and neck have been ordered. X-ray of the left hip has been ordered.
--- NOTE | 2017-04-13 06:04 | RADIOLOGY REPORT (SQ) ---
EXAM DESCRIPTION: HIP LEFT AP/LATERAL CLINICAL HISTORY: trauma COMPARISON: None. FINDINGS: Single view of the pelvis and 2 views of the left hip. Osteopenia. Mild bilateral hip joint space narrowing. No acute fracture or dislocation. Postoperative change in the pelvis. IMPRESSION: No acute fracture or dislocation.
--- NOTE | 2017-04-13 06:18 | RADIOLOGY REPORT (SQ) ---
EXAM DESCRIPTION: CT HEAD WITHOUT CLINICAL HISTORY: Fall/injury. COMPARISON: 03/28/2017 TECHNIQUE: Axial CT of the head obtained from the skull apex to the skull base without contrast. FINDINGS: No acute intracranial hemorrhage identified. No mass, mass effect, shift of the midline, abnormal extra-axial fluid collection or CT evidence of acute ischemic change identified. The ventricular system and sulcal spaces are mildly enlarged compatible with mild cerebral atrophy. Scattered areas of hypodensity throughout the supratentorial white matter are nonspecific and may be related to chronic small vessel ischemic change. The visualized paranasal sinuses and the mastoids are clear. No skull fracture identified. Visualized orbits and globes are unremarkable. Atherosclerotic calcification of the intracranial internal carotid arteries. Contusion in the left frontal scalp subcutaneous soft tissues. DLP:2742.56 mGy-cm IMPRESSION: 1. No acute intracranial abnormality by CT criteria. This exam was performed according to our departmental dose-optimization program, which includes automated exposure control, adjustment of the mA and/or kV according to patient size and/or use of iterative reconstruction technique.
--- NOTE | 2017-04-13 06:22 | RADIOLOGY REPORT (SQ) ---
EXAM DESCRIPTION: CT CERVICAL SPINE WITHOUT CLINICAL HISTORY: Trauma/injury. COMPARISON: 03/23/2017 TECHNIQUE: Axial CT of the cervical spine obtained without contrast. FINDINGS: Alignment of the cervical spine is maintained without evidence of subluxation. The atlantoaxial, atlantodental, and occipitoatlantal intervals are preserved. No fracture identified. Vertebral body height preserved. Prevertebral soft tissues are unremarkable. Mild to moderate loss of intervertebral disc height throughout the cervical spine, most severe at C6/7. There is endplate spondylosis and uncovertebral spurring. Mild facet arthropathy. No definite central canal osseous narrowing. Mild osseous neural foraminal narrowing at C3/4 and C6/7. Visualized skull base is intact. No fracture of the visualized facial bones. Visualized mastoid air cells and paranasal sinuses are well aerated. Visualized thyroid is unremarkable. No cervical lymphadenopathy. No pneumothorax in the visualized lung apices. DLP: 194.60 mGy-cm IMPRESSION: 1. No acute fracture or subluxation of the cervical spine. 2. Moderate multilevel degenerative change throughout the cervical spine. This exam was performed according to our departmental dose-optimization program, which includes automated exposure control, adjustment of the mA and/or kV according to patient size and/or use of iterative reconstruction technique.
--- NOTE | 2017-04-13 06:28 | ER Document Report ---
ED General - General Chief Complaint: Fall Stated Complaint: FALL,NECK PAIN Time Seen by Provider: 04/13/17 05:19 Mode of Arrival: Medic Information source: Patient Cannot obtain history due to: Dementia Notes: 76-year-old male history of dementia presents from care facility after fall. Patient had fallen a few weeks ago and struck his head, care facility evaluated the patient today stated that he may have fallen again but it was unwitnessed. They had concerns for head injury as well as possible hip injury Patient himself has no complaints and is noted to be at baseline from care facility TRAVEL OUTSIDE OF THE [place] IN LAST 30 DAYS: No - HPI Onset: Just prior to arrival Onset/Duration: Sudden Quality of pain: No pain Severity: Mild Pain Level: Denies Associated symptoms: Other Exacerbated by: Denies Relieved by: Denies Similar symptoms previously: Yes Recently seen / treated by doctor: Yes - Related Data Allergies/Adverse Reactions: hydrochlorothiazide [Hydrochlorothiazide] Allergy (Intermediate, Verified 09:57) Rash Past Medical History - Social History Smoking Status: Never Smoker Cigarette use (# per day): No Chew tobacco use (# tins/day): No Smoking Education Provided: No Frequency of alcohol use: None Drug Abuse: None Family History: COPD, Hyperlipidemia, Hypertension Patient has suicidal ideation: No Patient has homicidal ideation: No - Past Medical History Cardiac Medical History: Reports: Hx Hypertension, Hx Pulmonary Embolism Denies: Hx Coronary Artery Disease, Hx Heart Attack, Hx Hypercholesterolemia Pulmonary Medical History: Reports: Hx Asthma, Hx COPD Denies: Hx Bronchitis Neurological Medical History: Denies: Hx Seizures Endocrine Medical History: Denies: Hx Diabetes Mellitus Type 1, Hx Diabetes Mellitus Type 2, Hx Hyperthyroidism, Hx Hypothyroidism Renal/ Medical History: Reports: Hx Renal Insufficiency. Denies: Hx Peritoneal Dialysis GI Medical History: Denies: Hx Cirrhosis, Hx Gastroesophageal Reflux Disease, Hx Hepatitis Musculoskeltal Medical History: Denies Hx Arthritis Skin Medical History: Denies Hx Eczema, Denies Hx Psoriasis Psychiatric Medical History: Reports: Hx Dementia Denies: Hx Depression Infectious Medical History: Reports: Hx C-Diff, Hx MRSA. Denies: Hx Hepatitis Past Surgical History: Reports: Hx Herniorrhaphy. Denies: Hx Pacemaker - Immunizations Hx Diphtheria, Pertussis, Tetanus Vaccination: Yes Hx Pneumococcal Vaccination: 12/22/08 Review of Systems - Review of Systems Notes: REVIEW OF SYSTEMS: CONSTITUTIONAL : Denies fever, chills, or sweats. Denies recent illness. EENT: Denies eye, ear, throat, or mouth pain or symptoms. Denies nasal or sinus congestion or discharge. Denies throat, tongue, or mouth swelling or difficulty swallowing. CARDIOVASCULAR: Denies chest pain. Denies palpitations or racing or irregular heart beat. Denies ankle edema. RESPIRATORY: Denies cough, cold, or chest congestion. Denies shortness of breath, difficulty breathing, or wheezing. GASTROINTESTINAL: Denies abdominal pain or distention. Denies nausea, vomiting , or diarrhea. Denies blood in vomitus, stools, or per rectum. Denies black, tarry stools. Denies constipation. GENITOURINARY: Denies difficulty urinating, painful urination, burning, frequency, blood in urine, or discharge. MUSCULOSKELETAL: Denies back or neck pain or stiffness. Denies joint pain or swelling. Possible hip injury SKIN: Denies rash, lesions or sores. HEMATOLOGIC : Denies easy bruising or bleeding. LYMPHATIC: Denies swollen, enlarged glands. NEUROLOGICAL: Admits to head injury PSYCHIATRIC: Denies anxiety or stress. Denies depression, suicidal ideation, or homicidal ideation. ALL OTHER SYSTEMS REVIEWED AND NEGATIVE. Dictation was performed using [employer] voice recognition software PHYSICAL EXAMINATION: GENERAL: Well-appearing, well-nourished and in no acute distress. HEAD: Large contusion left frontal with ecchymosis old EYES: Pupils equal round and reactive to light, extraocular movements intact, sclera anicteric, conjunctiva are normal. ENT: Nares patent, oropharynx clear without exudates. Moist mucous membranes. NECK: Normal range of motion, supple without lymphadenopathy c-collar was initially in place LUNGS: Breath sounds clear to auscultation bilaterally and equal. No wheezes rales or rhonchi. HEART: Regular rate and rhythm without murmurs ABDOMEN: Soft, nontender, nondistended abdomen. No guarding, no rebound. No masses appreciated. Musculoskeletal: Normal range of motion, no pitting or edema. No cyanosis. NEUROLOGICAL: Cranial nerves grossly intact. Normal speech, normal gait. Normal sensory, motor exams PSYCH: Normal mood, normal affect. SKIN: Ecchymosis of face, skin abrasions of knees Physical Exam - Vital signs Vitals: Resp Pulse Ox 15 99 04/13/17 04:09 04/13/17 04:09 Course - Re-evaluation Re-evalutation: 04/13/17 06:57 Patient is moving all extremities appropriately, CTs and x-rays were performed which noted no acute abnormality. C-collar was removed. Patient will be discharged back to care facility as he is at his baseline. After performing a Medical Screening Examination, I estimate there is LOW risk for INTRACRANIAL HEMORRHAGE, UNSTABLE SPINE FRACTURE, CENTRAL CORD SYNDROME, CAUDA EQUINA, THORACIC AORTIC DISSECTION, PNEUMOTHORAX, PERFORATED BOWEL, RUPTURED ABDOMINAL AORTIC ANEURYSM, ACUTE TENDON RUPTURE, COMPARTMENT SYNDROME, or OPEN FRACTURE, thus I consider the discharge disposition reasonable. Also, there is no evidence or peritonitis, sepsis, or toxicity. I have reevaluated this patient multiple times and no significant life threatening changes are noted. I have attempted to discuss this with the patient however due to his dementia I am unsure if he understands me, since he is in a care facility expect facility to send him back immediately if there is any worsening symptoms or any other concerns - Vital Signs Vital signs: Temp Pulse Resp BP Pulse Ox 15 186/112 H 97 04/13/17 06:32 04/13/17 06:32 04/13/17 06:14 - Diagnostic Test Radiology reviewed: Image reviewed, Reports reviewed Discharge - Discharge Clinical Impression: Fall Qualifiers: Encounter type: initial encounter Qualified Code(s): W19.XXXA - Unspecified fall, initial encounter Contusion of head Qualifiers: Encounter type: initial encounter Contusion of head detail: scalp Qualified Code(s): S00.03XA - Contusion of scalp, initial encounter Hip injury Qualifiers: Encounter type: initial encounter Laterality: right Qualified Code(s): S79.911A - Unspecified injury of right hip, initial encounter Condition: Stable Disposition: HOME, SELF-CARE Instructions: Head Injury Precautions ([facility]) Additional Instructions: Please have patient follow up with PCP for reevaluation or to return immediately if there are any other concerns
[2017-04-13 07:59] VITALS: BP 179/88
== END 2017-04-13 08:14 | disposition home or self-care (01) ==
LOC: ER 03:59
DX: S79.911A Unspecified injury of right hip, initial encounter (principal); S00.03XA Contusion of scalp, initial encounter; M54.2 Cervicalgia; W19.XXXA Unspecified fall, initial encounter; F03.90 Unspecified dementia, unspecified severity, without behavioral disturbance, psychotic disturbance, mood disturbance, and anxiety; I10 Essential (primary) hypertension; Z86.711 Personal history of pulmonary embolism; J44.9 Chronic obstructive pulmonary disease, unspecified; Z86.14 Personal history of Methicillin resistant Staphylococcus aureus infection
CPT/HCPCS: 70450; 72125; 99284

== ENCOUNTER 2017-05-07 11:03 | Emergency (ER) | payer MEDICARE, OTHER ==
[2017-05-07 12:04] LABS: ABSOLUTE EOSINOPHILS # (AUTO) 0.1 10^3/uL (0.0-0.6); ABSOLUTE LYMPHOCYTES (AUTO) 0.5 10^3/uL (0.5-4.7); ABSOLUTE MONOCYTES (AUTO) 0.4 10^3/uL (0.1-1.4); ABSOLUTE NEUT (AUTO) 3.4 10^3/uL (1.7-8.2); BASOPHILS % (AUTO) 0.9 % (0-2); EOSINOPHILS % (AUTO) 2.7 % (0-6); HEMATOCRIT 39.1 % (37.9-51.0); HEMOGLOBIN 13.2 g/dL (13.5-17.0); LYMPHOCYTES % (AUTO) 12.2 % (13-45); MEAN CORPUSCULAR HGB CONC 33.8 g/dL (32.0-36.0); MEAN CORPUSCULAR VOLUME 104 fl (80-97); MONOCYTES % (AUTO) 8.7 % (3-13); PLATELET COUNT 127 10^3/uL (150-450); RED BLOOD COUNT 3.77 10^6/uL (4.35-5.55); RED CELL DISTRIBUTION WIDTH 12.5 % (11.5-14.0); SEGMENTED NEUTROPHILS % (AUTO) 75.5 % (42-78); TOTAL CELLS COUNTED % (AUTO) 100 %; WHITE BLOOD COUNT 4.5 10^3/uL (4.0-10.5)
[2017-05-07 12:08] LABS: APPEARANCE,URINE CLEAR; BILIRUBIN,URINE NEGATIVE (NEGATIVE); COLOR,URINE YELLOW; GLUCOSE, URINE NEGATIVE (NEGATIVE); KETONES,URINE NEGATIVE (NEGATIVE); LEUKOCYTE ESTERASE,URINE NEGATIVE (NEGATIVE); NITRITE,URINE NEGATIVE (NEGATIVE); PROTEIN,URINE NEGATIVE (NEGATIVE); URINE SPECIFIC GRAVITY 1.013
[2017-05-07 12:28] LABS: ANION GAP 9 (5-19); BLOOD UREA NITROGEN 20 mg/dL (7-20); CARBON DIOXIDE 25 mmol/L (22-30); CHLORIDE 106 mmol/L (98-107); GLUCOSE 64 mg/dL (75-110); POTASSIUM 4.4 mmol/L (3.6-5.0); SODIUM 140.2 mmol/L (137-145)
[2017-05-07] MEDS ORDERED: DEXTROSE 50%-WATER 25 GM/50 ML DISP.SYRIN IV ONE (13:33)
--- NOTE | 2017-05-07 14:31 | ER Document Report ---
ED General - General Chief Complaint: Breathing Difficulty Stated Complaint: SUGAR PROBLEMS Time Seen by Provider: 05/07/17 11:11 TRAVEL OUTSIDE OF THE [place] IN LAST 30 DAYS: No - HPI Patient complains to provider of: Hypoglycemia Notes: Patient arrived via EMS for and she called out for respiratory distress patient was found to be hypoglycemic with a blood sugar in the 60s. Patient was given D10 increase his blood sugar with improvement of his respiratory status. Patient was transported to the ER for further evaluation. Patient has a history of Parkinson's disease is at bedside currently states the patient was to be at baseline for his mental status. Patient does have some intermittent response. Patient according to his [facility] notes is a DNR. Patient does also have a history of dementia. Vital signs initially showed no signs of hypoxia. No tachycardia and no respiratory distress. - Related Data Allergies/Adverse Reactions: hydrochlorothiazide [Hydrochlorothiazide] Allergy (Intermediate, Verified 09:57) Rash Past Medical History - Social History Smoking Status: Unknown if Ever Smoked Family History: COPD, Hyperlipidemia, Hypertension Patient has suicidal ideation: No Patient has homicidal ideation: No - Past Medical History Cardiac Medical History: Reports: Hx Hypertension, Hx Pulmonary Embolism Denies: Hx Coronary Artery Disease, Hx Heart Attack, Hx Hypercholesterolemia Pulmonary Medical History: Reports: Hx Asthma, Hx COPD Denies: Hx Bronchitis Neurological Medical History: Denies: Hx Seizures Endocrine Medical History: Denies: Hx Diabetes Mellitus Type 1, Hx Diabetes Mellitus Type 2, Hx Hyperthyroidism, Hx Hypothyroidism Renal/ Medical History: Reports: Hx Renal Insufficiency. Denies: Hx Peritoneal Dialysis GI Medical History: Denies: Hx Cirrhosis, Hx Gastroesophageal Reflux Disease, Hx Hepatitis Musculoskeltal Medical History: Denies Hx Arthritis Skin Medical History: Denies Hx Eczema, Denies Hx Psoriasis Psychiatric Medical History: Reports: Hx Dementia Denies: Hx Depression Infectious Medical History: Reports: Hx C-Diff, Hx MRSA. Denies: Hx Hepatitis Past Surgical History: Reports: Hx Herniorrhaphy. Denies: Hx Pacemaker - Immunizations Hx Diphtheria, Pertussis, Tetanus Vaccination: Yes Hx Pneumococcal Vaccination: 12/22/08 Review of Systems - Review of Systems -: Yes ROS unobtainable due to patient's medical condition - Dementia Physical Exam - Vital signs Vitals: Temp Pulse Resp BP Pulse Ox 96.5 F L 68 18 121/82 97 05/07/17 11:10 02/18/18 11:10 05/07/17 11:10 05/07/17 11:10 05/07/17 11:10 Interpretation: Normal - General General appearance: Alert, Other - Chronically ill-appearing - HEENT Head: Normocephalic, Other - Small hematoma to the left side of forehead states chronic Eyes: Normal Pupils: PERRL - Respiratory Respiratory status: No respiratory distress Chest status: Nontender Breath sounds: Normal Chest palpation: Normal - Cardiovascular Rhythm: Regular Heart sounds: Normal auscultation Murmur: No - Abdominal Inspection: Normal Distension: No distension Bowel sounds: Normal Tenderness: Nontender Organomegaly: No organomegaly - Back Back: Normal, Nontender - Extremities General upper extremity: Normal inspection, Nontender General lower extremity: Normal inspection, Nontender - Neurological Neuro grossly intact: Yes Cognition: Other - Baseline per Sensory: Normal - Skin Skin Temperature: Warm Skin Moisture: Dry Skin Color: Normal Course - Re-evaluation Re-evalutation: 05/07/17 14:27 Laboratory studies not show any signs of acute infection. Examination does not reveal any signs of acute infection or reason for hypoglycemia. Patient was able tolerate some applesauce chemistry profile did return still showing some hypoglycemia. Patient was given half an amp of D50 and encouraged to eat another meal. Unfortunately here in the ER we do not have the patient's pured diet therefore continue to get applesauce. Will check Accu-Chek an hour if blood sugar is within normal limits will consider discharging patient back to [facility] facility. 05/07/17 15:13 Discussed with covering PCP Dr. Heard at the receiving half an amp of D5 blood sugar is at 89. Little concerned patient may be have further episodes of hypoglycemia recommended 7 admission at the patient receive a milligram of glucagon encouraged the facility to continue to feed the patient and the discharge patient back home O Accu-Chek and now give him a milligram of glucagon will also have the patient that if sugars are still normal remain normal then we will discharge the patient back to the [facility] per Dr. Heard instruction - Vital Signs Vital signs: Temp Pulse Resp BP Pulse Ox 96.5 F L 68 14 104/76 97 05/07/17 11:10 05/07/17 11:10 05/07/17 13:01 05/07/17 13:01 05/07/17 13:01 - Laboratory Result Diagrams: 05/07/17 11:30 05/07/17 11:30 Laboratory results interpreted by me: 05/07/17 05/07/17 05/07/17 11:30 11:30 11:30 RBC 3.77 L Hgb 13.2 L MCV 104 H MCH 35.0 H Plt Count 127 L Lymphocytes % 12.2 L Glucose 64 L POC Glucose Urine Urobilinogen 2.0 H 05/07/17 13:31 RBC Hgb MCV MCH Plt Count Lymphocytes % Glucose POC Glucose 69 L Urine Urobilinogen Discharge - Discharge Clinical Impression: DNR (do not resuscitate), Hypoglycemia Dementia in Parkinson's disease Qualifiers: Dementia behavioral disturbance: with behavioral disturbance Qualified Code(s) : G20 - Parkinson's disease Instructions: Hypoglycemia ([facility]), Hypoglycemia (Chronic) ([facility]) Additional Instructions: Please make sure that the patient is eating his meals as that his blood sugar today was low this was causing his issues. Please follow-up with his primary care physician next 24-48 hours return to ER symptoms worsen. Referrals: GAVI FARLEY MD [Primary Care Provider] - Follow up as needed
[2017-05-07] MEDS ORDERED: DEXTROSE 5%-1/2 NORMAL SALINE 1,000 ML IV ONE (14:35)
[2017-05-07] MEDS ORDERED: GLUCAGON,HUMAN RECOMB 1 MG INJ IV ONE (15:08)
--- NOTE | 2017-05-07 15:18 | RADIOLOGY REPORT (SQ) ---
EXAM DESCRIPTION: CHEST SINGLE VIEW COMPLETED DATE/TIME: 05/07/2017 3:03 pm REASON FOR STUDY: recurrent hypoglyemia COMPARISON: 03/28/2017 EXAM PARAMETERS: NUMBER OF VIEWS: One view. TECHNIQUE: Single frontal radiographic view of the chest acquired. RADIATION DOSE: NA LIMITATIONS: None. FINDINGS: LUNGS AND PLEURA: No acute opacities, masses or pneumothorax. No pleural effusion. MEDIASTINUM AND HILAR STRUCTURES: Stable. HEART AND VASCULAR STRUCTURES: Heart normal in size. Normal vasculature. BONES: No acute findings. HARDWARE: None in the chest. OTHER: No other significant finding. IMPRESSION: NO ACUTE RADIOGRAPHIC FINDING IN THE CHEST. TECHNICAL DOCUMENTATION: JOB ID: [id number] [place]-72 2010 [facility]- All Rights Reserved
[2017-05-07 17:13] VITALS: BP 124/79
== END 2017-05-07 17:40 ==
LOC: ER 11:03
DX: E16.2 Hypoglycemia, unspecified (principal); G31.83 Neurocognitive disorder with Lewy bodies; F02.81 Dementia in other diseases classified elsewhere, unspecified severity, with behavioral disturbance; J44.9 Chronic obstructive pulmonary disease, unspecified; I10 Essential (primary) hypertension; Z66 Do not resuscitate; Z86.711 Personal history of pulmonary embolism; Z88.8 Allergy status to other drugs, medicaments and biological substances
CPT/HCPCS: 99285; 96374; 96375; 36415; 82962; 85025; 80048; 81001; 71045; J3490; J1610

== ENCOUNTER 2017-05-23 01:28 | Emergency (ER) | payer MEDICARE, OTHER ==
--- NOTE | 2017-05-23 03:02 | ER Document Report ---
ED General - General Chief Complaint: Fall Stated Complaint: FALL,UNKNOWN INJURY Time Seen by Provider: 05/23/17 01:58 Notes: Patient is a 76-year-old male was sent in from the [facility] because he slipped and fell to the floor. He does have a small abrasion to the top of his head. Patient is now on blood thinning medications other than aspirin. He denies any pain. He denies headache. Fall at the [facility] was witnessed and the patient slipped and went to the ground. He denies any neck pain back pain chest pain. He says he does not hurt anywhere feels well. He has not been vomiting. TRAVEL OUTSIDE OF THE [place] IN LAST 30 DAYS: No - Related Data Allergies/Adverse Reactions: hydrochlorothiazide [Hydrochlorothiazide] Allergy (Intermediate, Verified 09:57) Rash Past Medical History - Social History Smoking Status: Never Smoker Chew tobacco use (# tins/day): No Frequency of alcohol use: None Drug Abuse: None Family History: COPD, Hyperlipidemia, Hypertension Patient has suicidal ideation: No Patient has homicidal ideation: No - Past Medical History Cardiac Medical History: Reports: Hx Hypertension, Hx Pulmonary Embolism Denies: Hx Coronary Artery Disease, Hx Heart Attack, Hx Hypercholesterolemia Pulmonary Medical History: Reports: Hx Asthma, Hx COPD Denies: Hx Bronchitis Neurological Medical History: Denies: Hx Seizures Endocrine Medical History: Denies: Hx Diabetes Mellitus Type 1, Hx Diabetes Mellitus Type 2, Hx Hyperthyroidism, Hx Hypothyroidism Renal/ Medical History: Reports: Hx Renal Insufficiency. Denies: Hx Peritoneal Dialysis GI Medical History: Denies: Hx Cirrhosis, Hx Gastroesophageal Reflux Disease, Hx Hepatitis Musculoskeltal Medical History: Denies Hx Arthritis Skin Medical History: Denies Hx Eczema, Denies Hx Psoriasis Psychiatric Medical History: Reports: Hx Dementia Denies: Hx Depression Infectious Medical History: Reports: Hx C-Diff, Hx MRSA. Denies: Hx Hepatitis Past Surgical History: Reports: Hx Herniorrhaphy. Denies: Hx Pacemaker - Immunizations Hx Diphtheria, Pertussis, Tetanus Vaccination: Yes Hx Pneumococcal Vaccination: 12/22/08 Review of Systems - Review of Systems Notes: My Normal Review Basic REVIEW OF SYSTEMS: CONSTITUTIONAL : Denies fever, chills, or sweats. Denies recent illness. EENT: Denies eye, ear, throat, or mouth pain or symptoms. Denies nasal or sinus congestion. CARDIOVASCULAR: Denies chest pain. RESPIRATORY: Denies cough, cold, or chest congestion. Denies shortness of breath, difficulty breathing, or wheezing. GASTROINTESTINAL: Denies abdominal pain. Denies nausea, vomiting, or diarrhea. Denies constipation. Last BM: MUSCULOSKELETAL: Denies neck or back pain or joint pain or swelling. SKIN: Denies rash or skin lesions. HEMATOLOGIC : Denies easy bruising or bleeding. NEUROLOGICAL: Denies altered mental status or loss of consciousness. Denies headache. Denies weakness or paralysis or loss of use of either side. Denies problems with gait or speech. Denies sensory or motor loss. ALL OTHER SYSTEMS REVIEWED AND NEGATIVE. Physical Exam - Vital signs Vitals: Pulse Resp BP Pulse Ox 108 H 16 171/88 H 97 05/23/17 01:39 05/23/17 01:39 05/23/17 01:39 05/23/17 01:39 - Notes Notes: General Appearance: Well nourished, alert, cooperative, no acute distress, no obvious discomfort. Vitals: reviewed, See vital signs table. Head: No swelling to the head or scalp. No crepitus. He has a very small skin abrasion over the top of the head that is only 1 cm in diameter without any active bleeding. Eyes: PERRL, EOMI, Conjuctiva clear Mouth: No decreasd moisture Throat: No tonsillar inflammation, No airway obstruction, No lymphadenopathy Neck: Supple, no neck tenderness,no step-offs or deformities. Back: No pain to palpation of thoracic or lumbar spine. No step-offs or deformities. Lungs: No wheezing, No rales, No rhonci, No accessory muscle use, good air exchange bilaterally. Heart: Normal rate, Regular rythm, No murmur, no rub Abdomen: Normal BS, soft, No rigidity, No abdominal tenderness, No guarding, no rebound, no abdominal masses, no organomegaly Extremities: good pulses in all extremities, no swelling or tenderness in the extremities, no edema. Skin: warm, dry, appropriate color, no rash Neuro: oriented x 3, normal affect, responds appropriately to questions. Cranial nerves II through XII are intact. Distal sensation intact. Course - Re-evaluation Re-evalutation: 05/23/17 06:58 Patient looks well and feels improved. The patient is safe to be discharged home. He was able answer all my questions appropriately. He has no pain anywhere. Did not think he needs a CT scan of the head is now on blood thinners on his aspirin and he does not have any evidence of significant trauma to his head other than the very small superficial skin abrasion. He also is not having headache and has had no vomiting. Patient's blood sugar was a bit low in the paramedics. We did give him some crackers to eat here. His blood sugar is staying stable and he is not on a sulfonylurea. Patient will be discharged home but strongly encouraged to return to ER for headaches, vomiting , or feels unwell. Patient agrees with plan will be discharged back to [facility]. Dictation of this chart was performed using voice recognition software; therefore, there may be some unintended grammatical errors. - Vital Signs Vital signs: Temp Pulse Resp BP Pulse Ox 59 L 16 153/81 H 99 05/23/17 04:06 05/23/17 04:06 05/23/17 04:06 05/23/17 04:06 Discharge - Discharge Clinical Impression: Skin tear Fall Qualifiers: Encounter type: initial encounter Qualified Code(s): W19.XXXA - Unspecified fall, initial encounter Condition: Good Disposition: HOME, SELF-CARE Additional Instructions: Please return to the ER if Mr. Lowery has headches, vomiting, recurrent low blood sugar, or is acting confused in any way. Referrals: GAVI FARLEY MD [Primary Care Provider] - Follow up tomorrow
[2017-05-23 04:07] VITALS: BP 153/81
== END 2017-05-23 04:14 | disposition home or self-care (01) ==
LOC: ER 01:28
DX: S00.01XA Abrasion of scalp, initial encounter (principal); W01.0XXA Fall on same level from slipping, tripping and stumbling without subsequent striking against object, initial encounter; Y92.129 Unspecified place in nursing home as the place of occurrence of the external cause; I10 Essential (primary) hypertension; J44.9 Chronic obstructive pulmonary disease, unspecified; Z88.8 Allergy status to other drugs, medicaments and biological substances
CPT/HCPCS: 82962; 99283